=== PATIENT | female | born 1935 | race Caucasian/White ===

== ENCOUNTER → 2017-07-25 | Outpatient (CLI) | payer MEDICARE ==
[~2017-07-25] MED LIST: CYAN100053; FOLI1TAB7; IRBE1TAB15; LOSA1TAB9 PO; LVT.1T PO; OXYB5TAB9 PO; TRAM50TA2 PO; VITAMIN D3 PO
--- NOTE | 2017-07-25 15:38 | Diagnostic Imaging Report ---
INDICATION: Routine screening. COMPARISON: 05/17/2016 and 03/30/2015. TECHNIQUE: Screening digital mammography was performed bilaterally with a Computer Aided Detection (CAD) system. FINDINGS: Scattered fibroglandular densities are noted bilaterally. No dominant mass or malignant appearing microcalcifications are seen. There are benign calcifications bilaterally. The axillae are unremarkable. IMPRESSION: No mammographic features suspicious for malignancy are identified. ACR BI-RADS Category 2: Benign findings. Result letter will be mailed to the patient. Note: At least 10% of breast cancer is not imaged by mammography. Dictated by: Dictated on workstation # [id number]
== END ==
LOC: RAD 11:03
PROVIDERS: ATTEND Family Medicine
DX: Z12.31 Encounter for screening mammogram for malignant neoplasm of breast (principal)
CPT/HCPCS: 77067

== ENCOUNTER 2017-11-07 15:00 | Outpatient (RCR) | payer MEDICARE | END 2017-11-08 16:16 | disposition home or self-care (01) | PROVIDERS: ATTEND Orthopaedic Surgery | DX: M17.12 Unilateral primary osteoarthritis, left knee (principal) ==

== ENCOUNTER 2018-01-09 13:06 | Outpatient (CLI) | payer MEDICARE ==
[~2018-01-09] VITALS: Ht 152.4 cm; Wt 94.0 kg
[2018-01-09] MEDS ORDERED: CHOL5000 PO (13:25)
[2018-01-09] MEDS ORDERED: CNC1KV IM (13:25)
[2018-01-09] MEDS ORDERED: CYAN-23 PO (13:25)
[2018-01-09] MEDS ORDERED: OXYB5TAB9 PO (13:25)
[2018-01-09] MEDS ORDERED: LEVO112T55 PO (13:25)
[2018-01-09] MEDS ORDERED: LOSA1TAB26 PO (13:25)
[2018-01-09 13:33] VITALS: BP 147/60
[2018-01-09 14:32] LABS: BASOPHILS % (AUTO) 1 % (0-10); EOSINOPHILS # (AUTO) 0.2 10^3/uL (0.0-0.3); EOSINOPHILS % (AUTO) 3 % (0-10); HEMATOCRIT 34 % (35-52); HEMOGLOBIN 11.2 G/DL (11.5-16.0); LYMPHOCYTES # (AUTO) 2.3 X 10^3 (1.0-4.0); LYMPHOCYTES % (AUTO) 40 % (12-44); MEAN CORPUSCULAR HEMOGLOBIN 32 PG (25-34); MEAN CORPUSCULAR HGB CONC 33 G/DL (32-36); MEAN CORPUSCULAR VOLUME 96 FL (80-99); MEAN PLATELET VOLUME 9.2 FL (7.4-10.4); MONOCYTES # (AUTO) 0.7 X 10^3 (0.0-1.0); MONOCYTES % (AUTO) 12 % (0-12); NEUTROPHILS # (AUTO) 2.6 X 10^3 (1.8-7.8); NEUTROPHILS % (AUTO) 45 % (42-75); PLATELET COUNT 344 10^3/uL (130-400); RED BLOOD COUNT 3.55 10^6/uL (4.35-5.85); WHITE BLOOD COUNT 5.8 10^3/uL (4.3-11.0)
[2018-01-09 14:50] LABS: ERYTHROCYTE SEDIMENTATION RATE 60 MM/HR (0-30)
[2018-01-09 14:52] LABS: PROTHROMBIN TIME PATIENT 12.6 SEC (12.2-14.7)
[2018-01-09 14:53] LABS: BILIRUBIN,URINE NEGATIVE (NEGATIVE); CLARITY,URINE CLEAR; COLOR,URINE YELLOW; GLUCOSE, URINE (UA) NEGATIVE (NEGATIVE); KETONES,URINE NEGATIVE (NEGATIVE); LEUKOCYTE ESTERASE ,URINE 1+ (NEGATIVE); NITRITE,URINE NEGATIVE (NEGATIVE); PH,URINE 5 (5-9); PROTEIN,URINE NEGATIVE (NEGATIVE); UROBILINOGEN,URINE NORMAL (NORMAL)
[2018-01-09 15:03] LABS: ALBUMIN 4.3 GM/DL (3.2-4.5); BILIRUBIN,TOTAL 0.3 MG/DL (0.1-1.0); CALCIUM 10.1 MG/DL (8.5-10.1); CREATININE SERUM 1.36 MG/DL (0.60-1.30); POTASSIUM 3.6 MMOL/L (3.6-5.0); TOTAL PROTEIN 7.3 GM/DL (6.4-8.2)
--- NOTE | 2018-01-09 15:05 | Diagnostic Imaging Report ---
INDICATION: Preop left knee arthroplasty. PA and lateral chest. FINDINGS: Heart size and pulmonary vascularity are normal. Lungs are clear. There are no effusions or pneumothoraces. IMPRESSION: Negative chest. Dictated by: Dictated on workstation # [id number]
[2018-01-09 15:08] LABS: BACTERIA,URINE TRACE /HPF; SQUAMOUS EPITHELIAL CELL,UR 0-2 /HPF
[2018-01-17] MEDS ORDERED: OXYC-197 PO (07:31)
[2018-01-26] MEDS ORDERED: ACET325T49 PO (10:15)
[2018-01-26] MEDS ORDERED: ASPI-983 PO (10:15)
== END 2018-01-09 15:00 ==
LOC: PREOP 13:06
PROVIDERS: ATTEND Orthopaedic Surgery
DX: Z01.811 Encounter for preprocedural respiratory examination (principal); Z01.812 Encounter for preprocedural laboratory examination; M17.12 Unilateral primary osteoarthritis, left knee; R53.83 Other fatigue
CPT/HCPCS: 36415; 71046; 80053; 81000; 85025; 85610; 85652; 86850; 86900; 86901; 87081; 93005

== ENCOUNTER 2018-01-17 06:00 | Inpatient (IN) | payer MEDICARE ==
--- NOTE | 2018-01-01 09:20 | HISTORY AND PHYSICAL ---
DATE OF SERVICE: ADMISSION HISTORY AND PHYSICAL DATE OF ADMISSION: 01/17/2018. This will be for inpatient admission for regular admission on 01/17/2018 for left total knee arthroplasty. HISTORY OF PRESENT ILLNESS: The patient is an 82-year-old active female with complaints of left knee pain. She reports marked functional impairment because of the knee. She reports that she is unable to participate in activities of daily living because of the knee. She has undergone treatment with injections, anti-inflammatories and activity modifications without relief and due to functional impairment and failure to improve with conservative measures, the patient has elected to proceed with surgical intervention. REVIEW OF SYSTEMS: No chest pain, no shortness of breath. No dysuria. Radiographs reveal severe medial and patellofemoral joint space narrowing. PAST MEDICAL HISTORY: Significant for sleep apnea, hypothyroidism, B12 deficiency, hypertension and history of pneumonia. PAST SURGICAL HISTORY: Appendectomy, tonsillectomy, hysterectomy, bilateral knee arthroscopy, cholecystectomy, foot and bilateral cataracts. SOCIAL HISTORY: The patient denies alcohol and tobacco use. FAMILY HISTORY: Significant for hypothyroidism, hypertension and asthma. PRIMARY CARE PROVIDER: Dr. Mccoy. MEDICATIONS: Cyanocobalamin, levothyroxine, losartan, oxybutynin, biotin and vitamin D. ALLERGIES: HYDROCODONE and DEMEROL. PHYSICAL EXAMINATION: GENERAL: The patient is well developed and well nourished, no acute distress. HEENT: Normocephalic and atraumatic. Pupils are equal, round and reactive to light. Oropharynx is clear. NECK: Supple and no lymphadenopathy. LUNGS: Clear to auscultation bilaterally. HEART: Regular rate and rhythm. ABDOMEN: Soft, nontender and nondistended. EXTREMITIES: The patient ambulates with an antalgic gait on the left. Her left knee demonstrates moderate effusion. Range of motion is 0/2/120. There is no varus valgus laxity. Her patella tracks well. Negative anterior and posterior drawer. The patient needs to use assistance to arise from a seated position. IMPRESSION: Severe left knee osteoarthritis unresponsive to conservative measures. PLAN: Left total knee arthroplasty. The risks, benefits, options, ramifications and recovery have been discussed at length with the patient. She understands and wishes to proceed. She will require inpatient admission due to pain management issues, gait abnormalities and weakness. Job ID: [id number] DocumentID: [id number] Dictated Date: 01/01/2018 08:59:37 Paper Coating Supervisor Date: 01/01/2018 09:20:03 Dictated By: MAHENDRA LEONARDO MD
[~2018-01-17] VITALS: Ht 152.4 cm; Wt 94.0 kg
[~2018-01-17 06:00] MED LIST changes: +CHOL5000 PO; +CNC1KV IM; +CYAN-23 PO; +LEVO112T55 PO; +LOSA1TAB26 PO
[2018-01-17 06:15] VITALS: BP 147/58
[2018-01-17] MEDS ORDERED: CEFUROXIME INJECTION 1,500 MG in NS (IVPB) 50 ML IV ONE (06:15)
--- OUTSIDE RECORDS SUMMARY | 2018-01-17 06:15 | XMS REPORT | CCD ---
Author Author [facility] Organization [facility] Address [address] [place] [address] Phone Care Team Providers Care Truck Driver Flatbed Name Role Phone PP Unavailable CCM Unavailable Summary Purpose Interface Exchange Insurance Providers Payer name Policy type / Coverage type Covered libertarian ID Effective Begin Date Effective End Date WPS Medicare Part B Medicare Part B [id number] Unknown Unknown [facility] Medicare Part B [id number] Unknown Unknown Family history Sister Diagnosis Age At Onset bladder cancer Unknown Asthma Unknown Diabetes mellitus Type 2 Unknown Hypertension Unknown Stroke Unknown Cancer Unknown kidney disease Unknown Runs in the family Diagnosis Age At Onset Diabetes mellitus Type 2 Unknown Father Diagnosis Age At Onset Asthma Unknown Diabetes mellitus Type 2 Unknown Sister Diagnosis Age At Onset Uterine Cancer Unknown Brother Diagnosis Age At Onset Alcoholism Unknown Heart Attack Unknown Hypertension Unknown Colon cancer Unknown Stroke Unknown Diabetes mellitus Type 2 Unknown Mother Diagnosis Age At Onset Hypertension Unknown Stroke Unknown Dementia Unknown Son Diagnosis Age At Onset lung cancer Unknown Social History Social History Element Codes Description Effective Dates Marital status Unknown 12/15/2014 Number of children Unknown 2 12/15/2014 Employment Unknown Retired 12/15/[address]: 429034478 Never smoker 12/15/[address]: 768490552 Never drinks alcohol 12/15/2014 Allergies, Adverse Reactions, Alerts Allergies, Adverse Reactions, Alerts data not found Past Medical History Illness Codes Condition Status Onset Date Resolved Date Atrophy of thyroid (acquired) ICD-9: 244.8 ICD-10: E03.4 Active 04/10/2016 Unknown Essential (primary) hypertension ICD-9: 401.1 ICD-10: I10 Active 04/10/2016 Unknown Obstructive sleep apnea (adult) (pediatric) ICD-9: 327.23 ICD-10: G47.33 Active 01/19/2017 Unknown Benign paroxysmal vertigo, bilateral ICD-9: 386.11 ICD-10: H81.13 Active 02/14/2017 Unknown Encounter for general adult medical examination with abnormal findings ICD-9: V70.0 ICD-10: Z00.01 Active 01/24/2017 Unknown Primary generalized (osteo)arthritis ICD-9: 715.09 ICD-10: M15.0 Active 01/19/2017 Unknown Cough ICD-9: 786.2 ICD-10: R05 Active 05/01/2016 Unknown Pneumonia due to other specified bacteria ICD-9: 482.89 ICD-10: J15.8 Active 05/01/2016 Unknown Dehydration ICD-9: 276.51 ICD-10: E86.0 Active 05/02/2016 Unknown Pneumonia due to other specified bacteria ICD-9: 482.83 ICD-10: J15.8 Active 05/02/2016 Unknown Encounter for screening mammogram for malignant neoplasm of breast ICD-9: V76.12 ICD-10: Z12.31 Active 04/10/2016 Unknown Encounter for removal of sutures ICD-9: V58.32 ICD-10: Z48.02 Active 02/16/2016 Unknown Other benign neoplasm of skin of trunk ICD-9: 216.5 ICD-10: D23.5 Active 02/07/2016 Unknown Gastro-esophageal reflux disease without esophagitis ICD-9: 530.81 ICD-10: K21.9 Active 01/25/2016 Unknown Hypothyroidism, unspecified ICD-9: 244.9 ICD-10: E03.9 Active 12/14/2014 Unknown Personal history of pneumonia (recurrent) ICD-9: V12.61 ICD-10: Z87.01 Active 01/25/2016 Unknown Other fatigue ICD-9: 780.79 ICD-10: R53.83 Active 01/07/2016 Unknown Other malaise ICD-9: 780.79 ICD-10: R53.81 Active 01/07/2016 Unknown Weakness ICD-9: 780.79 ICD-10: R53.1 Active 01/07/2016 Unknown Pneumonia, unspecified organism ICD-9: 486 ICD-10: J18.9 Active 12/31/2015 Unknown Acute laryngopharyngitis ICD-9: 465.0 ICD-10: J06.0 Active 12/28/2015 Unknown Other acute sinusitis ICD-9: 461.8 ICD-10: J01.80 Active 12/28/2015 Unknown Other allergic rhinitis ICD-9: 477.8 ICD-10: J30.89 Active 12/28/2015 Unknown Other secondary hypertension ICD-9: 401.9 ICD-10: I15.8 Active 12/14/2014 Unknown Unspecified inflammatory spondylopathy, 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.9 ICD-10: M46.93 Active 03/15/2015 Unknown Vitamin B12 deficiency anemia, unspecified ICD-9: 266.2 ICD-10: D51.9 Active 12/14/2014 Unknown Depression Unknown Active 12/15/2014 Unknown Hypertension Unknown Active 12/15/2014 Unknown Hypothryroidism Unknown Active 12/15/2014 Unknown DEPRESSIVE DISORDER NEC ICD-9: 311 Active 12/14/2014 Unknown ESSENTIAL HYPERTENSION ICD-9: 401.9 Active 12/14/2014 Unknown HYPOTHYROIDISM ICD-9: 244.9 Active 12/14/2014 Unknown Vitamin B12 deficiency ICD-9: 266.2 Active 12/14/2014 Unknown Problems Condition Codes Effective Dates Condition Status Atrophy of thyroid (acquired) ICD-9: 244.8 ICD-10: E03.4 04/10/2016 Active Essential (primary) hypertension ICD-9: 401.1 ICD-10: I10 04/10/2016 Active Obstructive sleep apnea (adult) (pediatric) ICD-9: 327.23 ICD-10: G47.33 01/19/2017 Active Benign paroxysmal vertigo, bilateral ICD-9: 386.11 ICD-10: H81.13 02/14/2017 Active Encounter for general adult medical examination with abnormal findings ICD-9: V70.0 ICD-10: Z00.01 01/24/2017 Active Primary generalized (osteo)arthritis ICD-9: 715.09 ICD-10: M15.0 01/19/2017 Active Cough ICD-9: 786.2 ICD-10: R05 05/01/2016 Active Pneumonia due to other specified bacteria ICD-9: 482.89 ICD-10: J15.8 05/01/2016 Active Dehydration ICD-9: 276.51 ICD-10: E86.0 05/02/2016 Active Pneumonia due to other specified bacteria ICD-9: 482.83 ICD-10: J15.8 05/02/2016 Active Encounter for screening mammogram for malignant neoplasm of breast ICD-9: V76.12 ICD-10: Z12.31 04/10/2016 Active Encounter for removal of sutures ICD-9: V58.32 ICD-10: Z48.02 02/16/2016 Active Other benign neoplasm of skin of trunk ICD-9: 216.5 ICD-10: D23.5 02/07/2016 Active Gastro-esophageal reflux disease without esophagitis ICD-9: 530.81 ICD-10: K21.9 01/25/2016 Active Hypothyroidism, unspecified ICD-9: 244.9 ICD-10: E03.9 12/14/2014 Active Personal history of pneumonia (recurrent) ICD-9: V12.61 ICD-10: Z87.01 01/25/2016 Active Other fatigue ICD-9: 780.79 ICD-10: R53.83 01/07/2016 Active Other malaise ICD-9: 780.79 ICD-10: R53.81 01/07/2016 Active Weakness ICD-9: 780.79 ICD-10: R53.1 01/07/2016 Active Pneumonia, unspecified organism ICD-9: 486 ICD-10: J18.9 12/31/2015 Active Acute laryngopharyngitis ICD-9: 465.0 ICD-10: J06.0 12/28/2015 Active Other acute sinusitis ICD-9: 461.8 ICD-10: J01.80 12/28/2015 Active Other allergic rhinitis ICD-9: 477.8 ICD-10: J30.89 12/28/2015 Active Other secondary hypertension ICD-9: 401.9 ICD-10: I15.8 12/14/2014 Active Unspecified inflammatory spondylopathy, 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.9 ICD-10: M46.93 03/15/2015 Active Vitamin B12 deficiency anemia, unspecified ICD-9: 266.2 ICD-10: D51.9 12/14/2014 Active Depression Unknown 12/15/2014 Active Hypertension Unknown 12/15/2014 Active Hypothryroidism Unknown 12/15/2014 Active DEPRESSIVE DISORDER NEC ICD-9: 311 12/14/2014 Active ESSENTIAL HYPERTENSION ICD-9: 401.9 12/14/2014 Active HYPOTHYROIDISM ICD-9: 244.9 12/14/2014 Active Vitamin B12 deficiency ICD-9: 266.2 12/14/2014 Active Medications Medication Codes Instructions Start Date Stop Date Status Fill Instructions Hyzaar 100 mg-12.5 mg tablet RxNorm: 847909 TAKE ONE TABLET BY MOUTH DAILY 07/24/2017 2018 Active oxybutynin chloride 5 mg tablet RxNorm: 471641 TAKE ONE TABLET BY MOUTH TWICE A DAY FOR URINARY INCONTINENCE 06/13/2017 Active oxybutynin chloride 5 mg tablet RxNorm: 222353 TAKE ONE TABLET BY MOUTH TWICE A DAY FOR URINARY INCONTINENCE 06/13/2017 Active levothyroxine 112 mcg tablet RxNorm: 780725 TAKE ONE TABLET BY MOUTH DAILY 05/08/2017 08/05/2017 Active cyanocobalamin (vit B-12) 1,000 mcg/mL injection solution RxNorm: 110758 INJECT 1 ML INTRAMUSCULARLY EVERY 2 WEEKS 03/24/2017 06/16/2018 Active meclizine 25 mg tablet RxNorm: 534673 1 Tablet(s) PO TID as needed Dizziness 02/14/2017 02/23/2017 Inactive levothyroxine 112 mcg tablet RxNorm: 792497 TAKE ONE TABLET BY MOUTH DAILY 02/14/2017 05/07/2017 Inactive levothyroxine 112 mcg tablet RxNorm: 153214 TAKE ONE TABLET BY MOUTH DAILY 11/14/2016 02/11/2017 Inactive Hyzaar 100 mg-12.5 mg tablet RxNorm: 116137 TAKE ONE TABLET BY MOUTH DAILY 10/24/2016 07/20/2017 Inactive levothyroxine 112 mcg tablet RxNorm: 673128 TAKE ONE TABLET BY MOUTH DAILY 08/17/2016 11/13/2016 Inactive ceftriaxone 500 mg solution for injection RxNorm: 0398147 1 Milliliter(s) Inj 08/08/2016 08/08/2016 Inactive azithromycin 250 mg tablet RxNorm: 021159 2 Tablet(s) PO on day #1, then one pill daily x 4 days 08/08/2016 01/18/2017 Inactive Kenalog 40 mg/mL suspension for injection RxNorm: 4466157 1 Milliliter(s) Inj 08/08/2016 08/08/2016 Inactive azithromycin 500 mg tablet RxNorm: 816265 1 Tablet(s) PO UD 08/07/2016 Inactive ceftriaxone 500 mg solution for injection RxNorm: 9119540 Inj 05/02/2016 05/02/2016 Inactive cefdinir 300 mg capsule RxNorm: 106798 1 Capsule(s) PO BID 05/11/2016 Inactive oxybutynin chloride 5 mg tablet RxNorm: 076843 1 Tablet(s) PO BID ( urinary incontinence) 04/18/2016 10/14/2016 Inactive azithromycin 500 mg tablet RxNorm: 172435 1 Tablet(s) PO UD two pills on day #1, then one pill daily x 4 days 02/08/2016 Inactive cyanocobalamin (vit B-12) 1,000 mcg/mL injection solution RxNorm: 026515 INJECT 1 ML INTRAMUSCULARLY EVERY 2 WEEKS 02/03/2016 03/23/2017 Inactive Pepcid 40 mg tablet RxNorm: 200051 1 Tablet(s) PO QPM 201501/18/2017 Inactive prednisone 10 mg tablet RxNorm: 747491 Tablet(s) PO UD 201501/25/2016 Inactive 6,5,4,3,2,1 ceftriaxone 500 mg solution for injection RxNorm: 5369047 Inj 01/01/2016 01/01/2016 Inactive Augmentin 500 mg-125 mg tablet RxNorm: 657793 1 Tablet(s) PO TID 12/29/2015 01/04/2016 Inactive levothyroxine 112 mcg tablet RxNorm: 295048 TAKE ONE TABLET BY MOUTH DAILY 12/21/2015 11/13/2016 Inactive levothyroxine 112 mcg tablet RxNorm: 048315 TAKE ONE TABLET BY MOUTH DAILY 12/21/2015 12/20/2015 Inactive Hyzaar 100 mg-12.5 mg tablet RxNorm: 646213 Tablet(s) TAKE ONE TABLET BY MOUTH DAILY 10/26/2015 10/19/2016 Inactive oxybutynin chloride 5 mg tablet RxNorm: 710955 1 Tablet(s) PO BID ( urinary incontinence) 09/25/2015 01/22/2016 Inactive DC myrbetriq Myrbetriq 25 mg tablet,extended release RxNorm: 6520631 1 Tablet(s) PO QHS 09/09/2015 10/08/2015 Inactive Myrbetriq 25 mg tablet,extended release RxNorm: 9421911 1 Tablet(s) PO QHS 09/09/2015 09/08/2015 Inactive levothyroxine 112 mcg tablet RxNorm: 171778 Tablet(s) TAKE ONE TABLET BY MOUTH DAILY 07/28/2015 12/20/2015 Inactive Just put on file- fill when ready levothyroxine 112 mcg tablet RxNorm: 259750 TAKE ONE TABLET BY MOUTH DAILY 07/23/2015 07/27/2015 Inactive oxybutynin chloride 5 mg tablet RxNorm: 250691 1 Tablet(s) PO TID ( urinary incontinence) 07/20/2015 09/17/2015 Inactive cefdinir 300 mg capsule RxNorm: 731321 1 Capsule(s) PO BID 09/201507/22/2015 Inactive ceftriaxone 500 mg solution for injection RxNorm: 4972028 Inj 07/16/2015 07/16/2015 Inactive Kenalog 40 mg/mL suspension for injection RxNorm: 9924732 Milliliter(s) Inj 07/16/2015 07/16/2015 Inactive Zithromax Z-Milad 250 mg tablet RxNorm: 796222 1 Tablet(s) PO UD 07/16/2015 07/20/2015 Inactive zpack Hyzaar 100 mg-12.5 mg tablet RxNorm: 605585 TAKE ONE TABLET BY MOUTH DAILY 01/16/2015 10/12/2015 Inactive Vitamin D2 50,000 unit capsule RxNorm: 889386 1 Capsule(s) PO QW 12/17/2014 03/16/2015 Inactive Vitamin D2 50,000 unit capsule RxNorm: 905249 1 Capsule(s) PO QW 12/17/2014 12/16/2014 Inactive levothyroxine 112 mcg tablet RxNorm: 226899 1 Tablet(s) PO daily 12/15/2014 07/12/2015 Inactive cyanocobalamin (vit B-12) 1,000 mcg/mL injection solution RxNorm: 890650 1 Milliliter(s) Inj [id number] 12/03/201406/30 Inactive cyanocobalamin (vit B-12) 1,000 mcg/mL injection solution RxNorm: 364626 1 Milliliter(s) Inj [id number] 12/03/201412/02 Inactive Hyzaar 100 mg-12.5 mg tablet RxNorm: 394061 1 Tablet(s) PO daily 10/20/2014 10/19/2014 Inactive Hyzaar 100 mg-12.5 mg tablet RxNorm: 805625 1 Tablet(s) PO daily 10/20/2014 01/15/2015 Inactive [SAVINGS FOR NON-COVERED DRUGS -- BIN:[id number], PCN: [id number], Group: [id number], ID# [id number], Questions: . THIS IS NOT INSURANCE.] Lasix 40 mg tablet RxNorm: 398536 1 Tablet(s) PO as doctor directed prn swelling No Start Date Active Probiotic oral RxNorm : 6205 oral No Start Date Active biotin oral RxNorm: 1588 oral No Start Date Active oxybutynin chloride 5 mg tablet RxNorm: 275641 1 Tablet(s) PO daily No Start Date Active Vitamin D3 5,000 unit tablet RxNorm: 960421 1 Tablet(s) PO daily No Start Date Active Probiotic and Acidophilus oral RxNorm: oral No Start Date 01/17/2017 Inactive oxybutynin chloride 5 mg tablet RxNorm: 175204 1 Tablet(s) PO TID as needed ( urinary incontinence) No Start Date 2015 Inactive levothyroxine 100 mcg tablet RxNorm: 146923 1 Tablet(s) PO daily No Start Date 12/14/2014 Inactive Vitamin B-12 1,000 mcg tablet RxNorm: 437126 1 Tablet(s) PO daily No Start Date 01/10/2017 Inactive Vitamin B-12 1,000 mcg/mL injection solution RxNorm: 680871 1 Milliliter(s) Inj Q 2 weeks No Start Date 01/17/2017 Inactive biotin 1 mg tablet RxNorm: 536952 1 Tablet(s) PO daily No Start Date 01/17/2017 Inactive Medication Administered Medication Codes Instructions Start Date Status Kenalog 40 mg/mL suspension for injection RxNorm: 4980822 1Milliliter 08/08/2016 No longer Active ceftriaxone 500 mg solution for injection RxNorm: 0975498 1Milliliter 08/08/2016 No longer Active ceftriaxone 500 mg solution for injection RxNorm: 1998769 05/02/2016 No longer Active ceftriaxone 500 mg solution for injection RxNorm: 7151025 01/01/2016 No longer Active Kenalog 40 mg/mL suspension for injection RxNorm: 4924228 Milliliter 07/16/2015 No longer Active ceftriaxone 500 mg solution for injection RxNorm: 5547442 07/16/2015 No longer Active Immunizations Vaccine Codes Date Status Influenza CVX: 141 05/09/2017 completed Zoster CVX: 121 04/12/2014 completed Influenza CVX: 141 03/12/2014 completed Pneumococcal CVX: 133 06/12/2002 completed Assessments Condition Codes Effective Dates Obstructive sleep apnea (adult) (pediatric) ICD-10: G47.33 ICD-9: 327.23 07/10/2017 Atrophy of thyroid (acquired) ICD-10: E03.4 ICD-9: 244.8 07/10/2017 Essential (primary) hypertension ICD-10: I10 ICD-9: 401.1 07/10/2017 Benign paroxysmal vertigo, bilateral ICD-10: H81.13 ICD-9: 386.11 02/14/2017 Encounter for general adult medical examination with abnormal findings ICD-10: Z00.01 ICD-9: V70.0 01/24/2017 Primary generalized (osteo)arthritis ICD-10: M15.0 ICD-9: 715.09 01/19/2017 Cough ICD-10: R05 ICD-9: 786.2 08/08/2016 Pneumonia due to other specified bacteria ICD-10: J15.8 ICD-9: 482.89 08/08/2016 Pneumonia due to other specified bacteria ICD-10: J15.8 ICD-9: 482.83 05/03/2016 Dehydration ICD-10: E86.0 ICD-9: 276.51 05/03/2016 Encounter for screening mammogram for malignant neoplasm of breast ICD-10: Z12.31 ICD-9: V76.12 04/11/2016 Encounter for removal of sutures ICD-10: Z48.02 ICD-9: V58.32 02/17/2016 Other benign neoplasm of skin of trunk ICD-10: D23.5 ICD-9: 216.5 02/08/2016 Hypothyroidism, unspecified ICD-10: E03.9 ICD-9: 244.9 01/26/2016 Personal history of pneumonia (recurrent) ICD-10: Z87.01 ICD-9: V12.61 01/26/2016 Gastro-esophageal reflux disease without esophagitis ICD-10 : K21.9 ICD-9: 530.81 01/26/2016 Weakness ICD-10: R53.1 ICD-9: 780.79 01/08/2016 Other fatigue ICD-10: R53.83 ICD-9: 780.79 01/08/2016 Other malaise ICD-10: R53.81 ICD-9: 780.79 01/08/2016 Pneumonia, unspecified organism ICD-10: J18.9 ICD-9: 486 01/01/2016 Other acute sinusitis ICD-10: J01.80 ICD-9: 461.8 12/29/2015 Other allergic rhinitis ICD-10: J30.89 ICD-9: 477.8 12/29/2015 Acute laryngopharyngitis ICD-10: J06.0 ICD-9: 465.0 12/29/2015 Vitamin B12 deficiency anemia, unspecified ICD-10: D51.9 ICD-9: 266.2 03/16/2015 Unspecified inflammatory spondylopathy, cervicothoracic region ICD-10: M46.93 ICD-9: 720.9 03/16/2015 Other secondary hypertension ICD-10: I15.8 ICD-9: 401.9 03/16/2015 HYPOTHYROIDISM ICD-9: 244.9 12/15/2014 Vitamin B12 deficiency ICD-9: 266.2 12/15 ESSENTIAL HYPERTENSION ICD-9: 401.9 12/15 DEPRESSIVE DISORDER NEC ICD-9: 311 2014 Reason For Visit Reason For Visit Effective Dates Notes hypertension 07/10/2017 dizziness 02/14/2017 Annual Medicare Wellness Exam 01/24/2017 edema 01/19/2017 hypothyroid 08/08/2016 headache 05/03/2016 fever 05/02/2016 hypothyroid 04/11/2016 wound follow up 02/17/2016 mole check 02/08/2016 hypothyroid 01/26/2016 malaise 01/08/2016 sinus congestion 01/01/2016 sinus congestion 12/29/2015 hypothyroid 07/27/2015 cough 07/16/2015 hypothyroid 03/16/2015 weight gain/obesity 12/15/2014 Results Observation Observation Code Item Item Code Result Date Cbc With Differential Ord2 WBC 5.51 K/ul 07/11/2017 Cbc With Differential Ord2 RBC 3.69 M/ul 07/11/2017 Cbc With Differential Ord2 HGB 11.5 g/dl 07/11/2017 Cbc With Differential Ord2 Neut% 48.5 % 07/11/2017 Cbc With Differential Ord2 HCT 36.1 % 07/11/2017 Cbc With Differential Ord2 MCV 97.8 fl 07/11/2017 Cbc With Differential Ord2 Lymph% 36.5 % 07/11/2017 Cbc With Differential Ord2 MCH 31.2 pg 07/11/2017 Cbc With Differential Ord2 [place]% 11.4 % 07/11/2017 Cbc With Differential Ord2 MCHC 31.9 pg 07/11/2017 Cbc With Differential Ord2 Eos% 2.9 % 07/11/2017 Cbc With Differential Ord2 PLT 322 K/ul 07/11/2017 Cbc With Differential Ord2 Baso% 0.7 % 07/11/2017 Cbc With Differential Ord2 RDW 14.0 % 07/11/2017 Cbc With Differential Ord2 Neut ABS# 2.67 K/ul 07/11/2017 Cbc With Differential Ord2 Lymph ABS# 2.01 K/ul 07/11/2017 Cbc With Differential Ord2 [place] ABS# 0.6 K/ul 07/11/2017 Cbc With Differential Ord2 Eos ABS# 0.2 K/ul 07/11/2017 Cbc With Differential Ord2 Baso ABS# 0.0 K/ul 07/11/2017 Lipid Ord30 CHOL 178 mg/dL 07/11/2017 Lipid Ord30 HDL 61.0 mg/dl 07/11/2017 Lipid Ord30 TRIG 83 mg/dL 07/11/2017 Lipid Ord30 LDL 100 mg/dL 07/11/2017 Lipid Ord30 C/HDL 2.9 Ratio 07/11/2017 Tsh Ord6 TSH (3rd IS) 1.81 uIU/mL 07/11/2017 Comp Metabolic Qim517 NA 141 mEq/L 07/11/2017 Comp Metabolic Ehy294 K 4.0 mEq/L 07/11/2017 Comp Metabolic Lgl999 CL 104 mEq/L 07/11/2017 Comp Metabolic Bin473 CO2 28.0 mEq/L 07/11/2017 Comp Metabolic Qtd740 ANION GAP 13 07/11/2017 Comp Metabolic Tzt417 GLUCOSE 105 mg/dL 07/11/2017 Comp Metabolic Dri088 Creat 1.0 mg/dL 07/11/2017 Comp Metabolic Htq215 eGFR 54 ml/min/1.73m2 07/11/2017 Comp Metabolic Jry547 BUN 22 mg/dL 07/11/2017 Comp Metabolic Clx305 B/C Ratio 21.2 Ratio 07/11/2017 Comp Metabolic Qda462 CALCIUM 9.1 mg/dL 07/11/2017 Comp Metabolic Tne856 ALK PHOS 76 U/L 07/11/2017 Comp Metabolic Dsn497 AST(SGOT) 19 U/L 07/11/2017 Comp Metabolic Flv915 ALT(SGPT) 20 U/L 07/11/2017 Comp Metabolic Jhy941 BILI T 0.3 mg/dL 07/11/2017 Comp Metabolic Xtc442 ALBUMIN 3.9 g/dL 07/11/2017 Comp Metabolic Gbe317 TPRO 6.3 g/dL 07/11/2017 Comp Metabolic Zls531 GLOB 2.4 g/dL 07/11/2017 Comp Metabolic Eba256 A/G Ratio 1.6 Ratio 07/11/2017 Comp Metabolic Ksp204 Osmo 285 mOsmo 07/11/2017 Free T4 Lzl960 FREE T4 1.12 ng/dL 07/11/2017 Tsh Ord6 hTSH II 0.94 uIU/mL 01/19/2017 Cbc With Differential Ord2 WBC 6.16 K/ul 01/19/2017 Cbc With Differential Ord2 RBC 3.36 M/ul 01/19/2017 Cbc With Differential Ord2 HGB 10.7 g/dl 01/19/2017 Cbc With Differential Ord2 Neut% 54.2 % 01/19/2017 Cbc With Differential Ord2 HCT 33.4 % 01/19/2017 Cbc With Differential Ord2 Lymph% 32.1 % 01/19/2017 Cbc With Differential Ord2 MCV 99.4 fl 01/19/2017 Cbc With Differential Ord2 [place]% 10.9 % 01/19/2017 Cbc With Differential Ord2 MCH 31.8 pg 01/19/2017 Cbc With Differential Ord2 Eos% 2.3 % 01/19/2017 Cbc With Differential Ord2 MCHC 32.0 pg 01/19/2017 Cbc With Differential Ord2 Baso% 0.5 % 01/19/2017 Cbc With Differential Ord2 PLT 292 K/ul 01/19/2017 Cbc With Differential Ord2 Neut ABS# 3.34 K/ul 01/19/2017 Cbc With Differential Ord2 RDW 13.3 % 01/19/2017 Cbc With Differential Ord2 Lymph ABS# 1.98 K/ul 01/19/2017 Cbc With Differential Ord2 [place] ABS# 0.7 K/ul 01/19/2017 Cbc With Differential Ord2 Eos ABS# 0.1 K/ul 01/19/2017 Cbc With Differential Ord2 Baso ABS# 0.0 K/ul 01/19/2017 Comp Metabolic Gon908 NA 142 mEq/L 01/19/2017 Comp Metabolic Xht668 K 4.0 mEq/L 01/19/2017 Comp Metabolic Prt685 CL 105 mEq/L 01/19/2017 Comp Metabolic Tbg379 CO2 27.0 mEq/L 01/19/2017 Comp Metabolic Ffy386 ANION GAP 14 01/19/2017 Comp Metabolic Enp149 GLUCOSE 98 mg/dL 01/19/2017 Comp Metabolic Had452 Creat 1.1 mg/dL 01/19/2017 Comp Metabolic Jhm174 eGFR 50 ml/min/1.73m2 01/19/2017 Comp Metabolic Buw261 BUN 19 mg/dL 01/19/2017 Comp Metabolic Gxo015 B/C Ratio 17.0 Ratio 01/19/2017 Comp Metabolic Pkg584 CALCIUM 9.2 mg/dL 01/19/2017 Comp Metabolic Krj951 ALK PHOS 59 U/L 01/19/2017 Comp Metabolic Mmu700 AST(SGOT) 17 U/L 01/19/2017 Comp Metabolic Gpc698 ALT(SGPT) 15 U/L 01/19/2017 Comp Metabolic Jzn849 BILI T 0.3 mg/dL 01/19/2017 Comp Metabolic Ztd871 ALBUMIN 3.6 g/dL 01/19/2017 Comp Metabolic Vpn076 TPRO 6.0 g/dL 01/19/2017 Comp Metabolic Unf031 GLOB 2.4 g/dL 01/19/2017 Comp Metabolic Evj159 A/G Ratio 1.5 Ratio 01/19/2017 Comp Metabolic Mzn931 Osmo 285 mOsmo 01/19/2017 Comp Metabolic Qyj494 NA 140 mEq/L 01/22/2016 Comp Metabolic Eso141 K 4.1 mEq/L 01/22/2016 Comp Metabolic Met948 CL 105 mEq/L 01/22/2016 Comp Metabolic Uwn328 CO2 30.0 mEq/L 01/22/2016 Comp Metabolic Bhp896 ANION GAP 9 01/22/2016 Comp Metabolic Smn982 GLUCOSE 92 mg/dL 01/22/2016 Comp Metabolic Adc636 Creat 1.0 mg/dL 01/22/2016 Comp Metabolic Ixe835 eGFR 55 ml/min/1.73m2 01/22/2016 Comp Metabolic Gvt930 BUN 20 mg/dL 01/22/2016 Comp Metabolic Plq110 B/C Ratio 19.6 Ratio 01/22/2016 Comp Metabolic Jlr421 CALCIUM 9.5 mg/dL 01/22/2016 Comp Metabolic Yjd620 ALK PHOS 66 U/L 01/22/2016 Comp Metabolic Rct778 AST(SGOT) 14 U/L 01/22/2016 Comp Metabolic Lrg344 ALT(SGPT) 15 U/L 01/22/2016 Comp Metabolic Zog415 BILI T 0.4 mg/dL 01/22/2016 Comp Metabolic Tah313 ALBUMIN 3.8 g/dL 01/22/2016 Comp Metabolic Qkc239 TPRO 6.2 g/dL 01/22/2016 Comp Metabolic Vmo974 GLOB 2.5 g/dL 01/22/2016 Comp Metabolic Scr809 A/G Ratio 1.5 Ratio 01/22/2016 Comp Metabolic Eit464 Osmo 282 mOsmo 01/22/2016 Lipid Ord30 CHOL 177 mg/dL 01/22/2016 Lipid Ord30 HDL 56.0 mg/dl 01/22/2016 Lipid Ord30 TRIG 85 mg/dL 01/22/2016 Lipid Ord30 LDL 104 mg/dL 01/22/2016 Lipid Ord30 C/HDL 3.2 Ratio 01/22/2016 Free T4 Zod125 FREE T4 1.10 ng/dL 01/22/2016 Cbc With Differential Ord2 WBC 6.28 K/ul 01/22/2016 Cbc With Differential Ord2 RBC 3.62 M/ul 01/22/2016 Cbc With Differential Ord2 HGB 11.4 g/dl 01/22/2016 Cbc With Differential Ord2 HCT 34.9 % 01/22/2016 Cbc With Differential Ord2 Neut% 45.0 % 01/22/2016 Cbc With Differential Ord2 MCV 96.4 fl 01/22/2016 Cbc With Differential Ord2 Lymph% 38.9 % 01/22/2016 Cbc With Differential Ord2 MCH 31.5 pg 01/22/2016 Cbc With Differential Ord2 [place]% 11.9 % 01/22/2016 Cbc With Differential Ord2 MCHC 32.7 pg 01/22/2016 Cbc With Differential Ord2 Eos% 3.7 % 01/22/2016 Cbc With Differential Ord2 Baso% 0.5 % 01/22/2016 Cbc With Differential Ord2 PLT 257 K/ul 01/22/2016 Cbc With Differential Ord2 RDW 13.7 % 01/22/2016 Cbc With Differential Ord2 Neut ABS# 2.83 K/ul 01/22/2016 Cbc With Differential Ord2 Lymph ABS# 2.44 K/ul 01/22/2016 Cbc With Differential Ord2 [place] ABS# 0.8 K/ul 01/22/2016 Cbc With Differential Ord2 Eos ABS# 0.2 K/ul 01/22/2016 Cbc With Differential Ord2 Baso ABS# 0.0 K/ul 01/22/2016 Tsh Ord6 hTSH II 1.53 uIU/mL 01/22/2016 Comp Metabolic Xed633 NA 141 mEq/L 01/08/2016 Comp Metabolic Wbk618 K 3.9 mEq/L 01/08/2016 Comp Metabolic Lcs378 CL 104 mEq/L 01/08/2016 Comp Metabolic Izr195 CO2 31.0 mEq/L 01/08/2016 Comp Metabolic Dfb202 ANION GAP 10 01/08/2016 Comp Metabolic Vct492 GLUCOSE 102 mg/dL 01/08/2016 Comp Metabolic Mjv685 Creat 1.0 mg/dL 01/08/2016 Comp Metabolic Rtd694 eGFR 55 ml/min/1.73m2 01/08/2016 Comp Metabolic Dzh299 BUN 26 mg/dL 01/08/2016 Comp Metabolic Hdf401 B/C Ratio 25.2 Ratio 01/08/2016 Comp Metabolic Ycq894 CALCIUM 9.3 mg/dL 01/08/2016 Comp Metabolic Kla719 ALK PHOS 62 U/L 01/08/2016 Comp Metabolic Pmb355 AST(SGOT) 16 U/L 01/08/2016 Comp Metabolic Smj923 ALT(SGPT) 26 U/L 01/08/2016 Comp Metabolic Rrc380 BILI T 0.3 mg/dL 01/08/2016 Comp Metabolic Yrg688 ALBUMIN 3.6 g/dL 01/08/2016 Comp Metabolic Ixh586 TPRO 6.1 g/dL 01/08/2016 Comp Metabolic Qhh048 GLOB 2.5 g/dL 01/08/2016 Comp Metabolic Tek018 A/G Ratio 1.5 Ratio 01/08/2016 Comp Metabolic Bgs276 Osmo 286 mOsmo 01/08/2016 Cbc With Differential Ord2 WBC 11.28 K/ul 01/08/2016 Cbc With Differential Ord2 RBC 3.76 M/ul 01/08/2016 Cbc With Differential Ord2 HGB 11.8 g/dl 01/08/2016 Cbc With Differential Ord2 HCT 36.2 % 01/08/2016 Cbc With Differential Ord2 Neut% 61.4 % 01/08/2016 Cbc With Differential Ord2 MCV 96.3 fl 01/08/2016 Cbc With Differential Ord2 Lymph% 28.9 % 01/08/2016 Cbc With Differential Ord2 [place]% 7.7 % 01/08/2016 Cbc With Differential Ord2 MCH 31.4 pg 01/08/2016 Cbc With Differential Ord2 MCHC 32.6 pg 01/08/2016 Cbc With Differential Ord2 Eos% 1.7 % 01/08/2016 Cbc With Differential Ord2 Baso% 0.3 % 01/08/2016 Cbc With Differential Ord2 PLT 422 K/ul 01/08/2016 Cbc With Differential Ord2 Neut ABS# 6.93 K/ul 01/08/2016 Cbc With Differential Ord2 RDW 13.4 % 01/08/2016 Cbc With Differential Ord2 Lymph ABS# 3.26 K/ul 01/08/2016 Cbc With Differential Ord2 [place] ABS# 0.9 K/ul 01/08/2016 Cbc With Differential Ord2 Eos ABS# 0.2 K/ul 01/08/2016 Cbc With Differential Ord2 Baso ABS# 0.0 K/ul 01/08/2016 Tsh Ord6 hTSH II 1.43 uIU/mL 07/27/2015 Free T4 Aug514 FREE T4 1.28 ng/dL 07/27/2015 Free T4 Uvs105 FREE T4 1.22 ng/dL 03/11/2015 Comp Metabolic Afm478 NA 136 mEq/L 03/11/2015 Comp Metabolic Rya545 K 4.1 mEq/L 03/11/2015 Comp Metabolic Rnn664 CL 103 mEq/L 03/11/2015 Comp Metabolic Upu296 CO2 29.0 mEq/L 03/11/2015 Comp Metabolic Ccq939 ANION GAP 8 03/11/2015 Comp Metabolic Ndh094 GLUCOSE 96 mg/dL 03/11/2015 Comp Metabolic Wih903 Creat 1.0 mg/dL 03/11/2015 Comp Metabolic Upj129 eGFR 54 ml/min/1.73m2 03/11/2015 Comp Metabolic Nyo511 BUN 19 mg/dL 03/11/2015 Comp Metabolic Oto125 B/C Ratio 18.3 Ratio 03/11/2015 Comp Metabolic Mcn841 CALCIUM 9.2 mg/dL 03/11/2015 Comp Metabolic Bds188 ALK PHOS 69 U/L 03/11/2015 Comp Metabolic Bmi680 AST(SGOT) 19 U/L 03/11/2015 Comp Metabolic Ixn378 ALT(SGPT) 14 U/L 03/11/2015 Comp Metabolic Wap277 BILI T 0.4 mg/dL 03/11/2015 Comp Metabolic Nzf985 ALBUMIN 3.8 g/dL 03/11/2015 Comp Metabolic Qey882 TPRO 6.4 g/dL 03/11/2015 Comp Metabolic Hux630 GLOB 2.6 g/dL 03/11/2015 Comp Metabolic Xlu951 A/G Ratio 1.5 Ratio 03/11/2015 Comp Metabolic Nfv467 Osmo 274 mOsmo 03/11/2015 Lipid Ord30 CHOL 149 mg/dL 03/11/2015 Lipid Ord30 HDL 49.0 mg/dl 03/11/2015 Lipid Ord30 TRIG 84 mg/dL 03/11/2015 Lipid Ord30 LDL 83 mg/dL 03/11/2015 Lipid Ord30 C/HDL 3.0 Ratio 03/11/2015 %Hba1C Pcm559 % HbA1c 62782-3 5.9 % 03/11/2015 %Hba1C Hix734 Gluc Ave 123 mg/dL 03/11/2015 Tsh Ord6 hTSH II 0.66 uIU/mL 03/11/2015 Cbc With Differential Ord2 WBC 5.6 K/uL 03/11/2015 Cbc With Differential Ord2 LYM 2.1 K/uL 03/11/2015 Cbc With Differential Ord2 LYM% 38.0 % 03/11/2015 Cbc With Differential Ord2 NEUT/GRAN 3.1 K/uL 03/11/2015 Cbc With Differential Ord2 NEUT/GRAN % 54.8 % 03/11/2015 Cbc With Differential Ord2 MID 0.4 K/uL 03/11/2015 Cbc With Differential Ord2 MID% 7.2 % 03/11/2015 Cbc With Differential Ord2 RBC 3.85 M/uL 03/11/2015 Cbc With Differential Ord2 HGB 11.4 g/dL 03/11/2015 Cbc With Differential Ord2 HCT 37.3 % 03/11/2015 Cbc With Differential Ord2 MCV 97 fL 03/11/2015 Cbc With Differential Ord2 MCH 30 pg 03/11/2015 Cbc With Differential Ord2 MCHC 31 g/dL 03/11/2015 Cbc With Differential Ord2 PLT 261 K/uL 03/11/2015 Cbc With Differential Ord2 RDW 13.8 % 03/11/2015 Review of Systems System Result Effective Dates Constitutional No recent illness 2017 Constitutional No chills 07/10/2017 Constitutional fatigue 07/10/2017 Constitutional fever 07/10/2017 Constitutional No insomnia 07/10/2017 Constitutional No malaise 07/10/2017 Eyes No blindness 07/10/2017 Eyes No vision change 07/10/2017 Ears/Nose/Throat/Neck No dental pain Ears/Nose/Throat/Neck No dizziness 2017 Ears/Nose/Throat/Neck No dysphagia 2017 Ears/Nose/Throat/Neck No headache 2017 Ears/Nose/Throat/Neck No hearing loss Ears/Nose/Throat/Neck No nasal allergies 07/10/2017 Ears/Nose/Throat/Neck No sore throat Ears/Nose/Throat/Neck No postnasal drip 07/10/2017 Ears/Nose/Throat/Neck No sinus congestion 07/10/2017 Cardiovascular No chest pain/pressure Cardiovascular No dyspnea 07/10/2017 Cardiovascular edema 07/10/2017 Cardiovascular No exercise intolerance Cardiovascular fatigue 07/10/2017 Cardiovascular No near-syncope/dizziness 07/10/2017 Respiratory No chest tightness 2017 Respiratory cough 07/10/2017 Respiratory No dyspnea 07/10/2017 Respiratory No pedal edema 07/10/2017 Gastrointestinal No abdominal pain 2017 Gastrointestinal No constipation 2017 Gastrointestinal No diarrhea 07/10/2017 Gastrointestinal No gastroesophageal reflux 07/10/2017 Gastrointestinal No nausea 07/10/2017 Gastrointestinal No vomiting 07/10/2017 Genitourinary/Nephrology No urinary incontinence 07/10/2017 Musculoskeletal No stiffness 07/10/2017 Musculoskeletal No swelling 07/10/2017 Musculoskeletal No muscle weakness 2017 Musculoskeletal No myalgias 07/10/2017 Dermatologic No rash 07/10/2017 Dermatologic No sores 07/10/2017 Dermatologic No scar 07/10/2017 Neurologic No dizziness 07/10/2017 Neurologic No headache 07/10/2017 Neurologic No neck pain 07/10/2017 Neurologic No syncope 07/10/2017 Psychiatric No anxiety 07/10/2017 Psychiatric depression 07/10/2017 Constitutional No recent illness 2016 Constitutional No chills 02/14/2017 Constitutional No diaphoresis 02/14/2017 Constitutional No fever 02/14/2017 Eyes No eye erythema 02/14/2017 Ears/Nose/Throat/Neck nasal allergies 10/2016 Ears/Nose/Throat/Neck dizziness 2016 Ears/Nose/Throat/Neck nasal discharge 10/2016 Ears/Nose/Throat/Neck No sinus congestion 02/14/2017 Ears/Nose/Throat/Neck postnasal drip 10/2016 Cardiovascular No chest pain/pressure 10/2016 Respiratory No cough 02/14/2017 Respiratory No dyspnea 02/14/2017 Gastrointestinal No abdominal pain 2016 Neurologic No alteration of consciousness 02/14/2017 Neurologic No mental status change 2016 Constitutional No recent illness 2016 Constitutional No chills 01/24/2017 Constitutional fatigue 01/24/2017 Eyes No eye erythema 01/24/2017 Eyes No vision change 01/24/2017 Ears/Nose/Throat/Neck No nasal allergies 01/24/2017 Cardiovascular No chest pain/pressure Cardiovascular No dyspnea 01/24/2017 Cardiovascular fatigue 01/24/2017 Respiratory No dyspnea 01/24/2017 Dermatologic No rash 01/24/2017 Dermatologic No scar 01/24/2017 Psychiatric No anxiety 01/24/2017 Psychiatric depression 01/24/2017 Constitutional No diaphoresis 01/24/2017 Ears/Nose/Throat/Neck No nasal discharge 01/24/2017 Neurologic No alteration of consciousness 01/24/2017 Neurologic No mental status change 2016 Constitutional No recent illness 2016 Constitutional No chills 01/19/2017 Constitutional fatigue 01/19/2017 Constitutional fever 01/19/2017 Constitutional No insomnia 01/19/2017 Constitutional No malaise 01/19/2017 Eyes No blindness 01/19/2017 Eyes No vision change 01/19/2017 Ears/Nose/Throat/Neck No dental pain 03/2017 Ears/Nose/Throat/Neck No dizziness 2016 Ears/Nose/Throat/Neck No dysphagia 2016 Ears/Nose/Throat/Neck No headache 2016 Ears/Nose/Throat/Neck No hearing loss 03/2017 Ears/Nose/Throat/Neck No nasal allergies 01/19/2017 Ears/Nose/Throat/Neck No sore throat 03/2017 Ears/Nose/Throat/Neck No postnasal drip 01/19/2017 Ears/Nose/Throat/Neck No sinus congestion 01/19/2017 Cardiovascular No chest pain/pressure 03/2017 Cardiovascular No dyspnea 01/19/2017 Cardiovascular edema 01/19/2017 Cardiovascular No exercise intolerance Cardiovascular fatigue 01/19/2017 Cardiovascular No near-syncope/dizziness 01/19/2017 Respiratory No chest tightness 2016 Respiratory cough 01/19/2017 Respiratory No dyspnea 01/19/2017 Respiratory No pedal edema 01/19/2017 Gastrointestinal No abdominal pain 2016 Gastrointestinal No constipation 2016 Gastrointestinal No diarrhea 01/19/2017 Gastrointestinal No gastroesophageal reflux 01/19/2017 Gastrointestinal No nausea 01/19/2017 Gastrointestinal No vomiting 01/19/2017 Genitourinary/Nephrology No urinary incontinence 01/19/2017 Musculoskeletal No stiffness 01/19/2017 Musculoskeletal No swelling 01/19/2017 Musculoskeletal No muscle weakness 2016 Musculoskeletal No myalgias 01/19/2017 Dermatologic No rash 01/19/2017 Dermatologic No sores 01/19/2017 Dermatologic No scar 01/19/2017 Neurologic No dizziness 01/19/2017 Neurologic No headache 01/19/2017 Neurologic No neck pain 01/19/2017 Neurologic No syncope 01/19/2017 Psychiatric No anxiety 01/19/2017 Psychiatric depression 01/19/2017 Constitutional No recent illness 2016 Constitutional No chills 08/08/2016 Constitutional fatigue 08/08/2016 Constitutional fever 08/08/2016 Constitutional No insomnia 08/08/2016 Constitutional No malaise 08/08/2016 Eyes No blindness 08/08/2016 Eyes No vision change 08/08/2016 Ears/Nose/Throat/Neck No dental pain Ears/Nose/Throat/Neck No dizziness 2016 Ears/Nose/Throat/Neck No dysphagia 2016 Ears/Nose/Throat/Neck No headache 2016 Ears/Nose/Throat/Neck No hearing loss Ears/Nose/Throat/Neck No nasal allergies 08/08/2016 Ears/Nose/Throat/Neck No sore throat Ears/Nose/Throat/Neck No postnasal drip 08/08/2016 Ears/Nose/Throat/Neck No sinus congestion 08/08/2016 Cardiovascular No chest pain/pressure Cardiovascular No dyspnea 08/08/2016 Cardiovascular edema 08/08/2016 Cardiovascular No exercise intolerance Cardiovascular fatigue 08/08/2016 Cardiovascular No near-syncope/dizziness 08/08/2016 Respiratory No chest tightness 2016 Respiratory cough 08/08/2016 Respiratory No dyspnea 08/08/2016 Respiratory No pedal edema 08/08/2016 Gastrointestinal No abdominal pain 2016 Gastrointestinal No constipation 2016 Gastrointestinal No diarrhea 08/08/2016 Gastrointestinal No gastroesophageal reflux 08/08/2016 Gastrointestinal No nausea 08/08/2016 Gastrointestinal No vomiting 08/08/2016 Genitourinary/Nephrology No urinary incontinence 08/08/2016 Musculoskeletal No stiffness 08/08/2016 Musculoskeletal No swelling 08/08/2016 Musculoskeletal No muscle weakness 2016 Musculoskeletal No myalgias 08/08/2016 Dermatologic No rash 08/08/2016 Dermatologic No sores 08/08/2016 Dermatologic No scar 08/08/2016 Neurologic No dizziness 08/08/2016 Neurologic No headache 08/08/2016 Neurologic No neck pain 08/08/2016 Neurologic No syncope 08/08/2016 Psychiatric No anxiety 08/08/2016 Psychiatric depression 08/08/2016 Constitutional recent illness 05/03/2016 Respiratory chest congestion 05/03/2016 Respiratory cough 05/03/2016 Cardiovascular No chest pain/pressure Constitutional recent illness 05/02/2016 Constitutional chills 05/02/2016 Constitutional fever 05/02/2016 Eyes No eye erythema 05/02/2016 Ears/Nose/Throat/Neck nasal allergies Ears/Nose/Throat/Neck nasal discharge Ears/Nose/Throat/Neck postnasal drip Ears/Nose/Throat/Neck sinus congestion Cardiovascular No chest pain/pressure Respiratory productive sputum 05/02/2016 Respiratory cough 05/02/2016 Gastrointestinal No abdominal pain 2015 Musculoskeletal No joint complaint 2015 Dermatologic No rash 05/02/2016 Neurologic No alteration of consciousness 05/02/2016 Neurologic No mental status change 2015 Ears/Nose/Throat/Neck sore throat 2015 Respiratory chest congestion 05/02/2016 Constitutional No recent illness 2015 Constitutional No chills 04/11/2016 Constitutional fatigue 04/11/2016 Constitutional No fever 04/11/2016 Constitutional No insomnia 04/11/2016 Constitutional No malaise 04/11/2016 Eyes No blindness 04/11/2016 Eyes No vision change 04/11/2016 Ears/Nose/Throat/Neck No dental pain Ears/Nose/Throat/Neck No dizziness 2015 Ears/Nose/Throat/Neck No dysphagia 2015 Ears/Nose/Throat/Neck No headache 2015 Ears/Nose/Throat/Neck No hearing loss Ears/Nose/Throat/Neck No nasal allergies 04/11/2016 Ears/Nose/Throat/Neck No sore throat Ears/Nose/Throat/Neck No postnasal drip 04/11/2016 Ears/Nose/Throat/Neck No sinus congestion 04/11/2016 Cardiovascular No chest pain/pressure Cardiovascular No dyspnea 04/11/2016 Cardiovascular edema 04/11/2016 Cardiovascular No exercise intolerance Cardiovascular fatigue 04/11/2016 Cardiovascular No near-syncope/dizziness 04/11/2016 Respiratory No chest tightness 2015 Respiratory No cough 04/11/2016 Respiratory No dyspnea 04/11/2016 Respiratory No pedal edema 04/11/2016 Gastrointestinal No abdominal pain 2015 Gastrointestinal No constipation 2015 Gastrointestinal No diarrhea 04/11/2016 Gastrointestinal No gastroesophageal reflux 04/11/2016 Gastrointestinal No nausea 04/11/2016 Gastrointestinal No vomiting 04/11/2016 Genitourinary/Nephrology No urinary incontinence 04/11/2016 Musculoskeletal No stiffness 04/11/2016 Musculoskeletal No swelling 04/11/2016 Musculoskeletal No muscle weakness 2015 Musculoskeletal No myalgias 04/11/2016 Dermatologic No rash 04/11/2016 Dermatologic No sores 04/11/2016 Dermatologic No scar 04/11/2016 Neurologic No dizziness 04/11/2016 Neurologic No headache 04/11/2016 Neurologic No neck pain 04/11/2016 Neurologic No syncope 04/11/2016 Psychiatric No anxiety 04/11/2016 Psychiatric depression 04/11/2016 Constitutional No recent illness 2015 Constitutional No fever 02/17/2016 Eyes No eye erythema 02/17/2016 Eyes No vision change 02/17/2016 Ears/Nose/Throat/Neck No nasal allergies 02/17/2016 Cardiovascular No chest pain/pressure 12/2015 Cardiovascular No dyspnea 02/17/2016 Respiratory No dyspnea 02/17/2016 Gastrointestinal No abdominal pain 2015 Ears/Nose/Throat/Neck No nasal discharge 02/17/2016 Respiratory cough 02/17/2016 Musculoskeletal No joint complaint 2015 Dermatologic scar 02/17/2016 Neurologic No alteration of consciousness 02/17/2016 Neurologic No mental status change 2015 Constitutional No recent illness 2015 Constitutional No fatigue 02/08/2016 Constitutional No fever 02/08/2016 Dermatologic mole change 02/08/2016 Constitutional No recent illness 2015 Constitutional No chills 01/26/2016 Constitutional fatigue 01/26/2016 Constitutional No fever 01/26/2016 Constitutional No insomnia 01/26/2016 Constitutional No malaise 01/26/2016 Eyes No blindness 01/26/2016 Eyes No vision change 01/26/2016 Ears/Nose/Throat/Neck No dental pain Ears/Nose/Throat/Neck No dizziness 2015 Ears/Nose/Throat/Neck No dysphagia 2015 Ears/Nose/Throat/Neck No headache 2015 Ears/Nose/Throat/Neck No hearing loss Ears/Nose/Throat/Neck No nasal allergies 01/26/2016 Ears/Nose/Throat/Neck No sore throat Ears/Nose/Throat/Neck No postnasal drip 01/26/2016 Ears/Nose/Throat/Neck No sinus congestion 01/26/2016 Cardiovascular No chest pain/pressure Cardiovascular No dyspnea 01/26/2016 Cardiovascular edema 01/26/2016 Cardiovascular No exercise intolerance Cardiovascular fatigue 01/26/2016 Cardiovascular No near-syncope/dizziness 01/26/2016 Respiratory No chest tightness 2015 Respiratory No cough 01/26/2016 Respiratory No dyspnea 01/26/2016 Respiratory No pedal edema 01/26/2016 Gastrointestinal No abdominal pain 2015 Gastrointestinal No constipation 2015 Gastrointestinal No diarrhea 01/26/2016 Gastrointestinal No gastroesophageal reflux 01/26/2016 Gastrointestinal No nausea 01/26/2016 Gastrointestinal No vomiting 01/26/2016 Genitourinary/Nephrology No urinary incontinence 01/26/2016 Musculoskeletal No stiffness 01/26/2016 Musculoskeletal No swelling 01/26/2016 Musculoskeletal No muscle weakness 2015 Musculoskeletal No myalgias 01/26/2016 Dermatologic No rash 01/26/2016 Dermatologic No sores 01/26/2016 Dermatologic No scar 01/26/2016 Neurologic No dizziness 01/26/2016 Neurologic No headache 01/26/2016 Neurologic No neck pain 01/26/2016 Neurologic No syncope 01/26/2016 Psychiatric No anxiety 01/26/2016 Psychiatric depression 01/26/2016 Constitutional fatigue 01/08/2016 Eyes No eye discharge 01/08/2016 Eyes No eye erythema 01/08/2016 Eyes No vision change 01/08/2016 Ears/Nose/Throat/Neck No nasal allergies 01/08/2016 Ears/Nose/Throat/Neck No nasal discharge 01/08/2016 Cardiovascular No chest pain/pressure Cardiovascular No dyspnea 01/08/2016 Respiratory No cough 01/08/2016 Respiratory No dyspnea 01/08/2016 Gastrointestinal No vomiting 01/08/2016 Dermatologic No rash 01/08/2016 Dermatologic No scar 01/08/2016 Neurologic No alteration of consciousness 01/08/2016 Neurologic No mental status change 2015 Constitutional recent illness 01/08/2016 Constitutional No fever 01/08/2016 Constitutional malaise 01/08/2016 Gastrointestinal No nausea 01/08/2016 Gastrointestinal diarrhea 01/08/2016 Gastrointestinal No constipation 2015 Gastrointestinal No abdominal pain 2015 Constitutional recent illness 01/01/2016 Eyes No eye discharge 01/01/2016 Eyes No vision change 01/01/2016 Ears/Nose/Throat/Neck nasal allergies Ears/Nose/Throat/Neck nasal discharge Ears/Nose/Throat/Neck sinus congestion Ears/Nose/Throat/Neck sore throat 2015 Cardiovascular No chest pain/pressure Respiratory cough 01/01/2016 Neurologic No alteration of consciousness 01/01/2016 Respiratory dyspnea on exertion 2015 Respiratory chest congestion 01/01/2016 Constitutional No chills 12/29/2015 Constitutional No diaphoresis 12/29/2015 Constitutional No fever 12/29/2015 Eyes No eye discharge 12/29/2015 Eyes No vision change 12/29/2015 Ears/Nose/Throat/Neck nasal discharge Ears/Nose/Throat/Neck sore throat 2015 Cardiovascular No chest pain/pressure Respiratory cough 12/29/2015 Respiratory No dyspnea 12/29/2015 Gastrointestinal No constipation 2015 Gastrointestinal No diarrhea 12/29/2015 Dermatologic No rash 12/29/2015 Dermatologic No sores 12/29/2015 Constitutional recent illness 12/29/2015 Ears/Nose/Throat/Neck nasal allergies Ears/Nose/Throat/Neck sinus congestion Neurologic No alteration of consciousness 12/29/2015 Constitutional No recent illness 2015 Constitutional No chills 07/27/2015 Constitutional fatigue 07/27/2015 Constitutional No fever 07/27/2015 Constitutional No insomnia 07/27/2015 Constitutional No malaise 07/27/2015 Eyes No vision change 07/27/2015 Ears/Nose/Throat/Neck No nasal allergies 07/27/2015 Ears/Nose/Throat/Neck No sore throat Ears/Nose/Throat/Neck No postnasal drip 07/27/2015 Ears/Nose/Throat/Neck No sinus congestion 07/27/2015 Cardiovascular No chest pain/pressure Cardiovascular No dyspnea 07/27/2015 Respiratory No cough 07/27/2015 Respiratory No dyspnea 07/27/2015 Gastrointestinal No abdominal pain 2015 Gastrointestinal No constipation 2015 Gastrointestinal No diarrhea 07/27/2015 Gastrointestinal No nausea 07/27/2015 Gastrointestinal No vomiting 07/27/2015 Musculoskeletal No stiffness 07/27/2015 Musculoskeletal No swelling 07/27/2015 Musculoskeletal No muscle weakness 2015 Musculoskeletal No myalgias 07/27/2015 Dermatologic No rash 07/27/2015 Dermatologic No sores 07/27/2015 Dermatologic No scar 07/27/2015 Psychiatric No anxiety 07/27/2015 Psychiatric depression 07/27/2015 Eyes No eye discharge 07/27/2015 Eyes No eye erythema 07/27/2015 Ears/Nose/Throat/Neck No nasal discharge 07/27/2015 Respiratory No chest congestion 2015 Genitourinary/Nephrology No dysuria 07/27 Neurologic No alteration of consciousness 07/27/2015 Neurologic No mental status change 2015 Constitutional No recent illness 2015 Constitutional No anorexia 07/16/2015 Constitutional No night sweats 2015 Constitutional No chills 07/16/2015 Constitutional No diaphoresis 07/16/2015 Constitutional No fatigue 07/16/2015 Constitutional No fever 07/16/2015 Constitutional No insomnia 07/16/2015 Constitutional No malaise 07/16/2015 Constitutional No weight loss 07/16/2015 Constitutional No weight gain 07/16/2015 Constitutional No obesity 07/16/2015 Respiratory cough 07/16/2015 Respiratory productive sputum 07/16/2015 Respiratory chest congestion 07/16/2015 Respiratory nocturnal cough 07/16/2015 Respiratory No dyspnea 07/16/2015 Respiratory dyspnea on exertion 2015 Respiratory No cigarette smoking 2015 Respiratory No chest tightness 2015 Ears/Nose/Throat/Neck nasal discharge 09/2015 Ears/Nose/Throat/Neck headache 2015 Ears/Nose/Throat/Neck No dizziness 2015 Ears/Nose/Throat/Neck No otalgia 2015 Ears/Nose/Throat/Neck No otitis media 09/2015 Ears/Nose/Throat/Neck No sinus congestion 07/16/2015 Ears/Nose/Throat/Neck No sore throat 09/2015 Cardiovascular No chest pain/pressure 09/2015 Eyes No vision change 07/16/2015 Eyes No eye discharge 07/16/2015 Gastrointestinal No diarrhea 07/16/2015 Gastrointestinal No constipation 2015 Musculoskeletal No myalgias 07/16/2015 Musculoskeletal No joint complaint 2015 Musculoskeletal No muscle weakness 2015 Musculoskeletal arthralgia(s) 07/16/2015 Musculoskeletal No stiffness 07/16/2015 Dermatologic No sores 07/16/2015 Dermatologic No rash 07/16/2015 Genitourinary/Nephrology No dysuria 07/16 Genitourinary/Nephrology No flank pain Psychiatric No anxiety 07/16/2015 Psychiatric No depression 07/16/2015 Constitutional No recent illness 2014 Constitutional No chills 03/16/2015 Constitutional fatigue 03/16/2015 Constitutional No fever 03/16/2015 Constitutional No insomnia 03/16/2015 Constitutional No malaise 03/16/2015 Constitutional weight gain 03/16/2015 Eyes No blindness 03/16/2015 Eyes No vision change 03/16/2015 Ears/Nose/Throat/Neck No dental pain 10/2014 Ears/Nose/Throat/Neck No dizziness 2014 Ears/Nose/Throat/Neck No dysphagia 2014 Ears/Nose/Throat/Neck No headache 2014 Ears/Nose/Throat/Neck No hearing loss 10/2014 Ears/Nose/Throat/Neck No nasal allergies 03/16/2015 Ears/Nose/Throat/Neck No sore throat 10/2014 Ears/Nose/Throat/Neck No postnasal drip 03/16/2015 Ears/Nose/Throat/Neck No sinus congestion 03/16/2015 Cardiovascular No chest pain/pressure 10/2014 Cardiovascular No dyspnea 03/16/2015 Cardiovascular edema 03/16/2015 Cardiovascular No exercise intolerance Cardiovascular fatigue 03/16/2015 Cardiovascular No near-syncope/dizziness 03/16/2015 Respiratory No chest tightness 2014 Respiratory No cough 03/16/2015 Respiratory No dyspnea 03/16/2015 Respiratory No pedal edema 03/16/2015 Gastrointestinal No abdominal pain 2014 Gastrointestinal No constipation 2014 Gastrointestinal No diarrhea 03/16/2015 Gastrointestinal No gastroesophageal reflux 03/16/2015 Gastrointestinal No nausea 03/16/2015 Gastrointestinal No vomiting 03/16/2015 Genitourinary/Nephrology No urinary incontinence 03/16/2015 Musculoskeletal No stiffness 03/16/2015 Musculoskeletal No swelling 03/16/2015 Musculoskeletal No muscle weakness 2014 Musculoskeletal No myalgias 03/16/2015 Dermatologic No rash 03/16/2015 Dermatologic No sores 03/16/2015 Dermatologic No scar 03/16/2015 Neurologic No dizziness 03/16/2015 Neurologic No headache 03/16/2015 Neurologic No neck pain 03/16/2015 Neurologic No syncope 03/16/2015 Psychiatric No anxiety 03/16/2015 Psychiatric depression 03/16/2015 Constitutional No recent illness 2014 Constitutional No chills 12/15/2014 Constitutional fatigue 12/15/2014 Constitutional No fever 12/15/2014 Constitutional No insomnia 12/15/2014 Constitutional No malaise 12/15/2014 Eyes No blindness 12/15/2014 Eyes No vision change 12/15/2014 Ears/Nose/Throat/Neck No dental pain 11/2014 Ears/Nose/Throat/Neck No dizziness 2014 Ears/Nose/Throat/Neck No dysphagia 2014 Ears/Nose/Throat/Neck No headache 2014 Ears/Nose/Throat/Neck No hearing loss 11/2014 Ears/Nose/Throat/Neck No nasal allergies 12/15/2014 Ears/Nose/Throat/Neck No sore throat 11/2014 Ears/Nose/Throat/Neck No postnasal drip 12/15/2014 Ears/Nose/Throat/Neck No sinus congestion 12/15/2014 Cardiovascular No chest pain/pressure 11/2014 Cardiovascular No dyspnea 12/15/2014 Cardiovascular edema 12/15/2014 Cardiovascular No exercise intolerance Cardiovascular fatigue 12/15/2014 Cardiovascular No near-syncope/dizziness 12/15/2014 Respiratory No chest tightness 2014 Respiratory No cough 12/15/2014 Respiratory No dyspnea 12/15/2014 Respiratory No pedal edema 12/15/2014 Gastrointestinal No abdominal pain 2014 Gastrointestinal No constipation 2014 Gastrointestinal No diarrhea 12/15/2014 Gastrointestinal No gastroesophageal reflux 12/15/2014 Gastrointestinal No nausea 12/15/2014 Gastrointestinal No vomiting 12/15/2014 Genitourinary/Nephrology No dysuria 12/15 Genitourinary/Nephrology No nocturia 11/2014 Genitourinary/Nephrology No urinary incontinence 12/15/2014 Musculoskeletal No stiffness 12/15/2014 Musculoskeletal No swelling 12/15/2014 Musculoskeletal No muscle weakness 2014 Musculoskeletal No myalgias 12/15/2014 Dermatologic No rash 12/15/2014 Dermatologic No sores 12/15/2014 Dermatologic No scar 12/15/2014 Neurologic No dizziness 12/15/2014 Neurologic No headache 12/15/2014 Neurologic No neck pain 12/15/2014 Neurologic No syncope 12/15/2014 Psychiatric No anxiety 12/15/2014 Psychiatric depression 12/15/2014 Constitutional weight gain 12/15/2014 Physical Exam Exam Name System Name Item Name Status Result Effective Dates Notes Full Exam - General 1994 Constitutional general appearance Development: well developed 07/10/2017 None Full Exam - General 1994 Constitutional general appearance Development: appears stated age 0107/10/2017 None Full Exam - General 1994 Constitutional general appearance Hygiene/Attention to Grooming: good hygiene 07/10/2017 None Full Exam - General 1994 Eyes conjunctiva /eyelids Overall: conjunctiva clear 07/10/2017 None Full Exam - General 1994 Eyes conjunctiva /eyelids Overall: cornea clear 07/10/2017 None Full Exam - General 1994 Eyes conjunctiva /eyelids Overall: eyelids normal 07/10/2017 None Full Exam - General 1994 Eyes pupils and irises Overall: pupils equal, round, reactive to light and accomodation 07/10/2017 None Full Exam - General 1994 Ears/Nose/Throat otoscopic exam Overall: external auditory canals clear 07/10/2017 None Full Exam - General 1994 Ears/Nose/Throat otoscopic exam Overall: tympanic membranes clear 07/10/2017 None Full Exam - General 1994 Ears/Nose/Throat lips/teeth/gingiva Overall: benign lips 07/10/2017 None Full Exam - General 1994 Ears/Nose/Throat lips/teeth/gingiva Overall: normal dentition 07/10/2017 None Full Exam - General 1994 Ears/Nose/Throat oral cavity/pharynx/larynx Overall: oral mucosa clear 07/10/2017 None Full Exam - General 1994 Ears/Nose/Throat oral cavity/pharynx/larynx Overall: oropharyngeal mucosa clear 07/10/2017 None Full Exam - General 1995 Ears/Nose/Throat oral cavity/pharynx/larynx Overall: hypopharynx benign 07/10/2017 None Full Exam - General 1994 Ears/Nose/Throat oral cavity/pharynx/larynx Overall: no masses 07/10/2017 None Full Exam - General 1994 Respiratory auscultation Lower lung field: crackles 07/10/2017 None Full Exam - General 1994 Respiratory respiratory effort/rhythm Overall: no retractions 07/10/2017 None Full Exam - General 1994 Respiratory respiratory effort/rhythm Overall: normal rate 07/10/2017 None Full Exam - General 1994 Cardiovascular extremities Overall: no clubbing 07/10/2017 None Full Exam - General 1994 Cardiovascular auscultation of heart Overall: regular rate 07/10/2017 None Full Exam - General 1994 Cardiovascular auscultation of heart Overall: normal heart sounds 07/10/2017 None Full Exam - General 1994 Abdomen abdominal exam Overall: no tenderness 07/10/2017 None Full Exam - General 1994 Abdomen abdominal exam Overall: normal bowel sounds 07/10/2017 None Full Exam - General 1994 Lymphatic neck nodes Overall: anterior cervical chain benign 07/10/2017 None Full Exam - General 1994 Lymphatic neck nodes Overall: posterior cervical chain benign 07/10/2017 None Full Exam - General 1994 Musculoskeletal head and neck Overall: cervical spine benign 07/10/2017 None Full Exam - General 1994 Neurologic deep tendon reflexes Overall: deep tendon reflexes intact 07/10/2017 None Full Exam - General 1994 Neurologic cranial nerves Overall: crainial nerves 2 - 12 grossly intact 07/10/2017 None Full Exam - General 1994 Psychiatric orientation/consciousness Overall: oriented to person, place and time 07/10/2017 None Full Exam - General 1994 Psychiatric mood and affect Overall: normal mood and affect 07/10/2017 None Full Exam - ENT Constitutional general appearance Overall: well nourished 02/14/2017 None Full Exam - ENT Constitutional general appearance Overall: well developed 02/14/2017 None Full Exam - ENT Constitutional general appearance Overall: in no acute distress 02/14/2017 None Full Exam - ENT Ears/Nose/Throat otoscopic exam Overall: external auditory canals normal 02/14/2017 None Full Exam - ENT Ears/Nose/Throat lips/ teeth/gingiva Overall: benign lips 02/14/2017 None Full Exam - ENT Ears/Nose/Throat otoscopic exam Left tympanic membrane: air -fluid level 02/14/2017 None Full Exam - ENT Ears/Nose/Throat oropharynx Overall: oral mucosa clear 02/14/2017 None Full Exam - ENT Respiratory inspection Overall: normal rate 10/2016 None Full Exam - ENT Respiratory inspection Overall: no retractions 02/14/2017 None Full Exam - ENT Respiratory auscultation Overall: breath sounds clear bilaterally 02/14/2017 None Full Exam - ENT Cardiovascular auscultation of heart Overall: normal heart sounds 02/14/2017 None Full Exam - ENT Cardiovascular auscultation of heart Overall: regular rate 02/14/2017 None Full Exam - ENT Lymphatic palpation of lymph nodes Overall: posterior cervical chain benign 02/14/2017 None Full Exam - ENT Lymphatic palpation of lymph nodes Overall: anterior cervical chain benign 02/14/2017 None Full Exam - ENT Neurologic mood and affect Overall: normal mood 02/14/2017 None Full Exam - ENT Neurologic mood and affect Overall: normal affect 02/14/2017 None Full Exam - ENT Neurologic orientation Overall: oriented to person, place and time 02/14/2017 None Full Exam - ENT Neurologic cranial nerves /coordination Overall: cranial nerves 2- 12 grossly intact 02/14/2017 None Full Exam - ENT Eyes ocular motility Overall: extraocular movement intact 02/14/2017 None Full Exam - ENT Eyes ocular motility Overall: normal gaze alignment 02/14/2017 None Full Exam - General 1994 Constitutional general appearance Hygiene/Attention to Grooming: good hygiene 01/24/2017 None Full Exam - General 1994 Eyes conjunctiva /eyelids Overall: conjunctiva clear 01/24/2017 None Full Exam - General 1994 Eyes conjunctiva /eyelids Overall: eyelids normal 01/24/2017 None Full Exam - General 1994 Ears/Nose/Throat lips/teeth/gingiva Overall: benign lips 01/24/2017 None Full Exam - General 1994 Ears/Nose/Throat oral cavity/pharynx/larynx Overall: oral mucosa clear 01/24/2017 None Full Exam - General 1994 Respiratory respiratory effort/rhythm Overall: no retractions 01/24/2017 None Full Exam - General 1994 Respiratory respiratory effort/rhythm Overall: normal rate 01/24/2017 None Full Exam - General 1994 Cardiovascular extremities Overall: no clubbing 01/24/2017 None Full Exam - General 1994 Neurologic cranial nerves Overall: crainial nerves 2 - 12 grossly intact 01/24/2017 None Full Exam - General 1994 Psychiatric orientation/consciousness Overall: oriented to person, place and time 01/24/2017 None Full Exam - General 1994 Psychiatric mood and affect Overall: normal mood and affect 01/24/2017 None Full Exam - General 1994 Constitutional general appearance Overall: well developed 01/24/2017 None Full Exam - General 1994 Constitutional general appearance Overall: in no acute distress 01/24/2017 None Full Exam - General 1994 Constitutional general appearance Overall: well nourished 01/24/2017 None Full Exam - General 1994 Musculoskeletal head and neck Overall: head atraumatic 01/24/2017 None Full Exam - General 1994 Psychiatric appearance Overall: well-groomed, good eye contact 01/24/2017 None Full Exam - General 1994 Constitutional general appearance Development: well developed 01/19/2017 None Full Exam - General 1994 Constitutional general appearance Development: appears stated age 0801/19/2017 None Full Exam - General 1994 Constitutional general appearance Hygiene/Attention to Grooming: good hygiene 01/19/2017 None Full Exam - General 1994 Eyes conjunctiva /eyelids Overall: conjunctiva clear 01/19/2017 None Full Exam - General 1994 Eyes conjunctiva /eyelids Overall: cornea clear 01/19/2017 None Full Exam - General 1994 Eyes conjunctiva /eyelids Overall: eyelids normal 01/19/2017 None Full Exam - General 1994 Eyes pupils and irises Overall: pupils equal, round, reactive to light and accomodation 01/19/2017 None Full Exam - General 1994 Ears/Nose/Throat otoscopic exam Overall: external auditory canals clear 01/19/2017 None Full Exam - General 1994 Ears/Nose/Throat otoscopic exam Overall: tympanic membranes clear 01/19/2017 None Full Exam - General 1994 Ears/Nose/Throat lips/teeth/gingiva Overall: benign lips 01/19/2017 None Full Exam - General 1994 Ears/Nose/Throat lips/teeth/gingiva Overall: normal dentition 01/19/2017 None Full Exam - General 1994 Ears/Nose/Throat oral cavity/pharynx/larynx Overall: oral mucosa clear 01/19/2017 None Full Exam - General 1994 Ears/Nose/Throat oral cavity/pharynx/larynx Overall: oropharyngeal mucosa clear 01/19/2017 None Full Exam - General 1994 Ears/Nose/Throat oral cavity/pharynx/larynx Overall: hypopharynx benign 01/19/2017 None Full Exam - General 1994 Ears/Nose/Throat oral cavity/pharynx/larynx Overall: no masses 01/19/2017 None Full Exam - General 1994 Respiratory auscultation Lower lung field: crackles 01/19/2017 None Full Exam - General 1994 Respiratory respiratory effort/rhythm Overall: no retractions 01/19/2017 None Full Exam - General 1994 Respiratory respiratory effort/rhythm Overall: normal rate 01/19/2017 None Full Exam - General 1994 Cardiovascular extremities Overall: no clubbing 01/19/2017 None Full Exam - General 1994 Cardiovascular auscultation of heart Overall: regular rate 01/19/2017 None Full Exam - General 1994 Cardiovascular auscultation of heart Overall: normal heart sounds 01/19/2017 None Full Exam - General 1994 Abdomen abdominal exam Overall: no tenderness 01/19/2017 None Full Exam - General 1994 Abdomen abdominal exam Overall: normal bowel sounds 01/19/2017 None Full Exam - General 1994 Musculoskeletal head and neck Overall: cervical spine benign 01/19/2017 None Full Exam - General 1994 Neurologic deep tendon reflexes Overall: deep tendon reflexes intact 01/19/2017 None Full Exam - General 1994 Neurologic cranial nerves Overall: crainial nerves 2 - 12 grossly intact 01/19/2017 None Full Exam - General 1994 Psychiatric orientation/consciousness Overall: oriented to person, place and time 01/19/2017 None Full Exam - General 1994 Psychiatric mood and affect Overall: normal mood and affect 01/19/2017 None Full Exam - General 1994 Lymphatic neck nodes Overall: anterior cervical chain benign 01/19/2017 None Full Exam - General 1994 Lymphatic neck nodes Overall: posterior cervical chain benign 01/19/2017 None Full Exam - General 1994 Constitutional general appearance Development: well developed 08/08/2016 None Full Exam - General 1994 Constitutional general appearance Development: appears stated age 0208/08/2016 None Full Exam - General 1994 Constitutional general appearance Hygiene/Attention to Grooming: good hygiene 08/08/2016 None Full Exam - General 1994 Eyes conjunctiva /eyelids Overall: conjunctiva clear 08/08/2016 None Full Exam - General 1994 Eyes conjunctiva /eyelids Overall: cornea clear 08/08/2016 None Full Exam - General 1994 Eyes conjunctiva /eyelids Overall: eyelids normal 08/08/2016 None Full Exam - General 1994 Eyes pupils and irises Overall: pupils equal, round, reactive to light and accomodation 08/08/2016 None Full Exam - General 1994 Ears/Nose/Throat otoscopic exam Overall: external auditory canals clear 08/08/2016 None Full Exam - General 1994 Ears/Nose/Throat otoscopic exam Overall: tympanic membranes clear 08/08/2016 None Full Exam - General 1994 Ears/Nose/Throat lips/teeth/gingiva Overall: benign lips 08/08/2016 None Full Exam - General 1994 Ears/Nose/Throat lips/teeth/gingiva Overall: normal dentition 08/08/2016 None Full Exam - General 1994 Ears/Nose/Throat oral cavity/pharynx/larynx Overall: oral mucosa clear 08/08/2016 None Full Exam - General 1994 Ears/Nose/Throat oral cavity/pharynx/larynx Overall: oropharyngeal mucosa clear 08/08/2016 None Full Exam - General 1994 Ears/Nose/Throat oral cavity/pharynx/larynx Overall: hypopharynx benign 08/08/2016 None Full Exam - General 1994 Ears/Nose/Throat oral cavity/pharynx/larynx Overall: no masses 08/08/2016 None Full Exam - General 1994 Respiratory respiratory effort/rhythm Overall: no retractions 08/08/2016 None Full Exam - General 1994 Respiratory respiratory effort/rhythm Overall: normal rate 08/08/2016 None Full Exam - General 1994 Cardiovascular extremities Overall: no clubbing 08/08/2016 None Full Exam - General 1994 Cardiovascular auscultation of heart Overall: regular rate 08/08/2016 None Full Exam - General 1994 Cardiovascular auscultation of heart Overall: normal heart sounds 08/08/2016 None Full Exam - General 1994 Abdomen abdominal exam Overall: no tenderness 08/08/2016 None Full Exam - General 1994 Abdomen abdominal exam Overall: normal bowel sounds 08/08/2016 None Full Exam - General 1994 Musculoskeletal head and neck Overall: cervical spine benign 08/08/2016 None Full Exam - General 1994 Neurologic deep tendon reflexes Overall: deep tendon reflexes intact 08/08/2016 None Full Exam - General 1994 Neurologic cranial nerves Overall: crainial nerves 2 - 12 grossly intact 08/08/2016 None Full Exam - General 1994 Psychiatric orientation/consciousness Overall: oriented to person, place and time 08/08/2016 None Full Exam - General 1994 Psychiatric mood and affect Overall: normal mood and affect 08/08/2016 None Full Exam - General 1994 Respiratory auscultation Lower lung field: crackles 08/08/2016 None Full Exam - General 1994 Constitutional general appearance Overall: well developed 05/03/2016 None Full Exam - General 1994 Constitutional general appearance Evidence of Distress: anxious 05/03/2016 None Full Exam - General 1994 Eyes conjunctiva /eyelids Overall: conjunctiva clear 05/03/2016 None Full Exam - General 1994 Eyes conjunctiva /eyelids Overall: eyelids normal 05/03/2016 None Full Exam - General 1994 Ears/Nose/Throat otoscopic exam Overall: external auditory canals clear 05/03/2016 None Full Exam - General 1994 Ears/Nose/Throat otoscopic exam Tympanic membrane: air- fluid level 05/03/2016 None Full Exam - General 1994 Ears/Nose/Throat lips/teeth/gingiva Overall: benign lips 05/03/2016 None Full Exam - General 1994 Ears/Nose/Throat oral cavity/pharynx/larynx Oropharynx: erythema 05/03/2016 None Full Exam - General 1994 Respiratory auscultation Diffuse: diminished 05/03/2016 None Full Exam - General 1994 Respiratory auscultation Lower lung field: crackles 05/03/2016 None Full Exam - General 1994 Respiratory respiratory effort/rhythm Overall: no retractions 05/03/2016 None Full Exam - General 1994 Respiratory respiratory effort/rhythm Overall: normal rate 05/03/2016 None Full Exam - General 1994 Cardiovascular auscultation of heart Overall: regular rate 05/03/2016 None Full Exam - General 1994 Cardiovascular auscultation of heart Overall: normal heart sounds 05/03/2016 None Full Exam - General 1994 Lymphatic neck nodes Overall: anterior cervical chain benign 05/03/2016 None Full Exam - General 1994 Lymphatic neck nodes Overall: posterior cervical chain benign 05/03/2016 None Full Exam - General 1994 Psychiatric orientation/consciousness Overall: oriented to person, place and time 05/03/2016 None Full Exam - General 1994 Psychiatric mood and affect Overall: normal mood and affect 05/03/2016 None Full Exam - General 1994 Psychiatric mood and affect Mood: anxious 05/03/2016 None Full Exam - General 1994 Ears/Nose/Throat oral cavity/pharynx/larynx Oral mucosa: dry 05/03/2016 None Full Exam - General 1994 Constitutional general appearance Overall: well developed 05/02/2016 None Full Exam - General 1994 Eyes conjunctiva /eyelids Overall: conjunctiva clear 05/02/2016 None Full Exam - General 1994 Eyes conjunctiva /eyelids Overall: eyelids normal 05/02/2016 None Full Exam - General 1994 Ears/Nose/Throat otoscopic exam Overall: external auditory canals clear 05/02/2016 None Full Exam - General 1994 Ears/Nose/Throat otoscopic exam Tympanic membrane: air- fluid level 05/02/2016 None Full Exam - General 1994 Ears/Nose/Throat lips/teeth/gingiva Overall: benign lips 05/02/2016 None Full Exam - General 1994 Ears/Nose/Throat oral cavity/pharynx/larynx Overall: oral mucosa clear 05/02/2016 None Full Exam - General 1994 Ears/Nose/Throat oral cavity/pharynx/larynx Posterior Pharynx: clear post nasal drainage 05/02/2016 None Full Exam - General 1994 Respiratory auscultation Diffuse: diminished 05/02/2016 None Full Exam - General 1994 Respiratory respiratory effort/rhythm Overall: no retractions 05/02/2016 None Full Exam - General 1994 Respiratory respiratory effort/rhythm Overall: normal rate 05/02/2016 None Full Exam - General 1994 Cardiovascular auscultation of heart Overall: regular rate 05/02/2016 None Full Exam - General 1994 Cardiovascular auscultation of heart Overall: normal heart sounds 05/02/2016 None Full Exam - General 1994 Lymphatic neck nodes Overall: anterior cervical chain benign 05/02/2016 None Full Exam - General 1994 Lymphatic neck nodes Overall: posterior cervical chain benign 05/02/2016 None Full Exam - General 1994 Integument inspection of skin Overall: few scattered moles, no gross abnormalities 05/02/2016 None Full Exam - General 1994 Neurologic cranial nerves Overall: crainial nerves 2 - 12 grossly intact 05/02/2016 None Full Exam - General 1994 Psychiatric orientation/consciousness Overall: oriented to person, place and time 05/02/2016 None Full Exam - General 1994 Psychiatric mood and affect Overall: normal mood and affect 05/02/2016 None Full Exam - General 1994 Constitutional general appearance Evidence of Distress: anxious 05/02/2016 None Full Exam - General 1994 Ears/Nose/Throat oral cavity/pharynx/larynx Oropharynx: erythema 05/02/2016 None Full Exam - General 1994 Respiratory auscultation Lower lung field: crackles 05/02/2016 None Full Exam - General 1994 Psychiatric mood and affect Mood: anxious 05/02/2016 None Full Exam - General 1994 Constitutional general appearance Development: well developed 04/11/2016 None Full Exam - General 1994 Constitutional general appearance Development: appears stated age 1004/11/2016 None Full Exam - General 1994 Constitutional general appearance Hygiene/Attention to Grooming: good hygiene 04/11/2016 None Full Exam - General 1994 Eyes conjunctiva /eyelids Overall: conjunctiva clear 04/11/2016 None Full Exam - General 1994 Eyes conjunctiva /eyelids Overall: cornea clear 04/11/2016 None Full Exam - General 1994 Eyes conjunctiva /eyelids Overall: eyelids normal 04/11/2016 None Full Exam - General 1994 Eyes pupils and irises Overall: pupils equal, round, reactive to light and accomodation 04/11/2016 None Full Exam - General 1994 Ears/Nose/Throat otoscopic exam Overall: external auditory canals clear 04/11/2016 None Full Exam - General 1994 Ears/Nose/Throat otoscopic exam Overall: tympanic membranes clear 04/11/2016 None Full Exam - General 1994 Ears/Nose/Throat lips/teeth/gingiva Overall: benign lips 04/11/2016 None Full Exam - General 1994 Ears/Nose/Throat lips/teeth/gingiva Overall: normal dentition 04/11/2016 None Full Exam - General 1994 Ears/Nose/Throat oral cavity/pharynx/larynx Overall: oral mucosa clear 04/11/2016 None Full Exam - General 1994 Ears/Nose/Throat oral cavity/pharynx/larynx Overall: oropharyngeal mucosa clear 04/11/2016 None Full Exam - General 1994 Ears/Nose/Throat oral cavity/pharynx/larynx Overall: hypopharynx benign 04/11/2016 None Full Exam - General 1994 Ears/Nose/Throat oral cavity/pharynx/larynx Overall: no masses 04/11/2016 None Full Exam - General 1994 Respiratory auscultation Overall: breath sounds clear bilaterally 04/11/2016 None Full Exam - General 1994 Respiratory respiratory effort/rhythm Overall: no retractions 04/11/2016 None Full Exam - General 1994 Respiratory respiratory effort/rhythm Overall: normal rate 04/11/2016 None Full Exam - General 1994 Cardiovascular extremities Overall: no clubbing 04/11/2016 None Full Exam - General 1994 Cardiovascular auscultation of heart Overall: regular rate 04/11/2016 None Full Exam - General 1994 Cardiovascular auscultation of heart Overall: normal heart sounds 04/11/2016 None Full Exam - General 1994 Abdomen abdominal exam Overall: no tenderness 04/11/2016 None Full Exam - General 1994 Abdomen abdominal exam Overall: normal bowel sounds 04/11/2016 None Full Exam - General 1994 Musculoskeletal head and neck Overall: cervical spine benign 04/11/2016 None Full Exam - General 1994 Neurologic deep tendon reflexes Overall: deep tendon reflexes intact 04/11/2016 None Full Exam - General 1994 Neurologic cranial nerves Overall: crainial nerves 2 - 12 grossly intact 04/11/2016 None Full Exam - General 1994 Psychiatric orientation/consciousness Overall: oriented to person, place and time 04/11/2016 None Full Exam - General 1994 Psychiatric mood and affect Overall: normal mood and affect 04/11/2016 None Full Exam - General 1994 Constitutional general appearance Hygiene/Attention to Grooming: good hygiene 02/17/2016 None Full Exam - General 1994 Eyes conjunctiva /eyelids Overall: conjunctiva clear 02/17/2016 None Full Exam - General 1994 Eyes conjunctiva /eyelids Overall: cornea clear 02/17/2016 None Full Exam - General 1994 Eyes conjunctiva /eyelids Overall: eyelids normal 02/17/2016 None Full Exam - General 1994 Eyes pupils and irises Overall: pupils equal, round, reactive to light and accomodation 02/17/2016 None Full Exam - General 1994 Ears/Nose/Throat lips/teeth/gingiva Overall: benign lips 02/17/2016 None Full Exam - General 1994 Ears/Nose/Throat lips/teeth/gingiva Overall: normal dentition 02/17/2016 None Full Exam - General 1994 Ears/Nose/Throat oral cavity/pharynx/larynx Overall: oral mucosa clear 02/17/2016 None Full Exam - General 1994 Respiratory auscultation Overall: breath sounds clear bilaterally 02/17/2016 None Full Exam - General 1994 Respiratory respiratory effort/rhythm Overall: no retractions 02/17/2016 None Full Exam - General 1994 Respiratory respiratory effort/rhythm Overall: normal rate 02/17/2016 None Full Exam - General 1994 Cardiovascular extremities Overall: no clubbing 02/17/2016 None Full Exam - General 1994 Cardiovascular auscultation of heart Overall: regular rate 02/17/2016 None Full Exam - General 1994 Cardiovascular auscultation of heart Overall: normal heart sounds 02/17/2016 None Full Exam - General 1994 Neurologic cranial nerves Overall: crainial nerves 2 - 12 grossly intact 02/17/2016 None Full Exam - General 1994 Psychiatric orientation/consciousness Overall: oriented to person, place and time 02/17/2016 None Full Exam - General 1994 Psychiatric mood and affect Overall: normal mood and affect 02/17/2016 None Full Exam - General 1994 Constitutional general appearance Overall: well developed 02/17/2016 None Full Exam - General 1994 Constitutional general appearance Overall: in no acute distress 02/17/2016 None Full Exam - General 1994 Constitutional general appearance Overall: well nourished 02/17/2016 None Full Exam - General 1994 Ears/Nose/Throat oral cavity/pharynx/larynx Posterior Pharynx: clear post nasal drainage 02/17/2016 None Full Exam - General 1994 Musculoskeletal head and neck Overall: head atraumatic 02/17/2016 None Full Exam - General 1994 Integument inspection of skin Location: chest 02/17/2016 small healing incision - [address], sutures removed, well approximated, no erythema, edema, or warmth noted Full Exam - General 1994 Psychiatric appearance Overall: well-groomed, good eye contact 02/17/2016 None Full Exam - General 1994 Psychiatric speech Overall: normal quality, no aphasia 02/17/2016 None Full Exam - General 1994 Psychiatric speech Overall: normal quality, quantity, rate 02/17/2016 None Full Exam - General 1994 Constitutional general appearance Overall: well nourished 02/08/2016 None Full Exam - General 1994 Constitutional general appearance Overall: well developed 02/08/2016 None Full Exam - General 1994 Constitutional general appearance Overall: in no acute distress 02/08/2016 None Full Exam - General 1994 Respiratory respiratory effort/rhythm Overall: normal rate 02/08/2016 None Full Exam - General 1994 Respiratory respiratory effort/rhythm Overall: no retractions 02/08/2016 None Full Exam - General 1994 Cardiovascular auscultation of heart Overall: regular rate 02/08/2016 None Full Exam - General 1994 Cardiovascular auscultation of heart Overall: normal heart sounds 02/08/2016 None Full Exam - General 1994 Cardiovascular auscultation of heart Overall: no murmurs 02/08/2016 None Full Exam - General 1994 Psychiatric orientation/consciousness Overall: oriented to person, place and time 02/08/2016 None Full Exam - General 1994 Psychiatric mood and affect Mood: happy 02/08/2016 None Full Exam - General 1994 Psychiatric mood and affect Overall: normal mood and affect 02/08/2016 None Full Exam - General 1994 Integument inspection of skin Location: chest 02/08/2016 upper chest on right - 8mm punch biopsy - lesion infiltrated with lidocaine, cleansed with iodine and punch biopsy used to remove lesion - sutures x 3 and dressed with neosporin and 4 x 4 Full Exam - General 1994 Respiratory auscultation Lower lung field: diminished 02/08/2016 None Full Exam - General 1994 Respiratory auscultation Lower lung field: crackles 02/08/2016 None Full Exam - General 1994 Constitutional general appearance Development: well developed 01/26/2016 None Full Exam - General 1994 Constitutional general appearance Development: appears stated age 0801/26/2016 None Full Exam - General 1994 Constitutional general appearance Hygiene/Attention to Grooming: good hygiene 01/26/2016 None Full Exam - General 1994 Eyes conjunctiva /eyelids Overall: conjunctiva clear 01/26/2016 None Full Exam - General 1994 Eyes conjunctiva /eyelids Overall: cornea clear 01/26/2016 None Full Exam - General 1994 Eyes conjunctiva /eyelids Overall: eyelids normal 01/26/2016 None Full Exam - General 1994 Eyes pupils and irises Overall: pupils equal, round, reactive to light and accomodation 01/26/2016 None Full Exam - General 1994 Ears/Nose/Throat otoscopic exam Overall: external auditory canals clear 01/26/2016 None Full Exam - General 1994 Ears/Nose/Throat otoscopic exam Overall: tympanic membranes clear 01/26/2016 None Full Exam - General 1994 Ears/Nose/Throat lips/teeth/gingiva Overall: benign lips 01/26/2016 None Full Exam - General 1994 Ears/Nose/Throat lips/teeth/gingiva Overall: normal dentition 01/26/2016 None Full Exam - General 1994 Ears/Nose/Throat oral cavity/pharynx/larynx Overall: oral mucosa clear 01/26/2016 None Full Exam - General 1994 Ears/Nose/Throat oral cavity/pharynx/larynx Overall: oropharyngeal mucosa clear 01/26/2016 None Full Exam - General 1994 Ears/Nose/Throat oral cavity/pharynx/larynx Overall: hypopharynx benign 01/26/2016 None Full Exam - General 1994 Ears/Nose/Throat oral cavity/pharynx/larynx Overall: no masses 01/26/2016 None Full Exam - General 1994 Respiratory auscultation Overall: breath sounds clear bilaterally 01/26/2016 None Full Exam - General 1994 Respiratory respiratory effort/rhythm Overall: no retractions 01/26/2016 None Full Exam - General 1994 Respiratory respiratory effort/rhythm Overall: normal rate 01/26/2016 None Full Exam - General 1994 Cardiovascular extremities Overall: no clubbing 01/26/2016 None Full Exam - General 1994 Cardiovascular auscultation of heart Overall: regular rate 01/26/2016 None Full Exam - General 1994 Cardiovascular auscultation of heart Overall: normal heart sounds 01/26/2016 None Full Exam - General 1994 Abdomen abdominal exam Overall: no tenderness 01/26/2016 None Full Exam - General 1994 Abdomen abdominal exam Overall: normal bowel sounds 01/26/2016 None Full Exam - General 1994 Musculoskeletal head and neck Overall: cervical spine benign 01/26/2016 None Full Exam - General 1994 Neurologic deep tendon reflexes Overall: deep tendon reflexes intact 01/26/2016 None Full Exam - General 1994 Neurologic cranial nerves Overall: crainial nerves 2 - 12 grossly intact 01/26/2016 None Full Exam - General 1994 Psychiatric orientation/consciousness Overall: oriented to person, place and time 01/26/2016 None Full Exam - General 1994 Psychiatric mood and affect Overall: normal mood and affect 01/26/2016 None Full Exam - General 1994 Constitutional general appearance Development: well developed 01/08/2016 None Full Exam - General 1994 Constitutional general appearance Development: appears stated age 0701/08/2016 None Full Exam - General 1994 Constitutional general appearance Hygiene/Attention to Grooming: good hygiene 01/08/2016 None Full Exam - General 1994 Eyes conjunctiva /eyelids Overall: conjunctiva clear 01/08/2016 None Full Exam - General 1994 Eyes conjunctiva /eyelids Overall: cornea clear 01/08/2016 None Full Exam - General 1994 Eyes conjunctiva /eyelids Overall: eyelids normal 01/08/2016 None Full Exam - General 1994 Eyes pupils and irises Overall: pupils equal, round, reactive to light and accomodation 01/08/2016 None Full Exam - General 1994 Ears/Nose/Throat lips/teeth/gingiva Overall: benign lips 01/08/2016 None Full Exam - General 1994 Ears/Nose/Throat lips/teeth/gingiva Overall: normal dentition 01/08/2016 None Full Exam - General 1994 Respiratory auscultation Overall: breath sounds clear bilaterally 01/08/2016 None Full Exam - General 1994 Respiratory respiratory effort/rhythm Overall: no retractions 01/08/2016 None Full Exam - General 1994 Respiratory respiratory effort/rhythm Overall: normal rate 01/08/2016 None Full Exam - General 1994 Cardiovascular extremities Overall: no clubbing 01/08/2016 None Full Exam - General 1994 Cardiovascular auscultation of heart Overall: regular rate 01/08/2016 None Full Exam - General 1994 Cardiovascular auscultation of heart Overall: normal heart sounds 01/08/2016 None Full Exam - General 1994 Neurologic cranial nerves Overall: crainial nerves 2 - 12 grossly intact 01/08/2016 None Full Exam - General 1994 Psychiatric orientation/consciousness Overall: oriented to person, place and time 01/08/2016 None Full Exam - General 1994 Psychiatric mood and affect Overall: normal mood and affect 01/08/2016 None Full Exam - General 1994 Abdomen abdominal exam Overall: normal bowel sounds 01/08/2016 None Full Exam - General 1994 Abdomen abdominal exam Overall: no tenderness 01/08/2016 None Full Exam - General 1994 Musculoskeletal gait and station Overall: normal gait 01/08/2016 None Full Exam - General 1994 Musculoskeletal gait and station Overall: normal station 01/08/2016 None Full Exam - General 1994 Psychiatric appearance Overall: well-groomed, good eye contact 01/08/2016 None Full Exam - General 1994 Constitutional general appearance Development: well developed 01/01/2016 None Full Exam - General 1994 Constitutional general appearance Development: appears stated age 0701/01/2016 None Full Exam - General 1994 Constitutional general appearance Hygiene/Attention to Grooming: good hygiene 01/01/2016 None Full Exam - General 1994 Eyes conjunctiva /eyelids Overall: conjunctiva clear 01/01/2016 None Full Exam - General 1994 Eyes conjunctiva /eyelids Overall: cornea clear 01/01/2016 None Full Exam - General 1994 Eyes conjunctiva /eyelids Overall: eyelids normal 01/01/2016 None Full Exam - General 1994 Ears/Nose/Throat otoscopic exam Overall: external auditory canals clear 01/01/2016 None Full Exam - General 1994 Ears/Nose/Throat otoscopic exam Tympanic membrane: air- fluid level 01/01/2016 None Full Exam - General 1994 Ears/Nose/Throat lips/teeth/gingiva Overall: benign lips 01/01/2016 None Full Exam - General 1994 Ears/Nose/Throat lips/teeth/gingiva Overall: normal dentition 01/01/2016 None Full Exam - General 1994 Ears/Nose/Throat oral cavity/pharynx/larynx Overall: oral mucosa clear 01/01/2016 None Full Exam - General 1994 Ears/Nose/Throat oral cavity/pharynx/larynx Posterior Pharynx: clear post nasal drainage 01/01/2016 None Full Exam - General 1994 Ears/Nose/Throat oral cavity/pharynx/larynx Oropharynx: erythema 01/01/2016 None Full Exam - General 1994 Respiratory auscultation Diffuse: diminished 01/01/2016 None Full Exam - General 1994 Respiratory respiratory effort/rhythm Overall: no retractions 01/01/2016 None Full Exam - General 1994 Respiratory respiratory effort/rhythm Overall: normal rate 01/01/2016 None Full Exam - General 1994 Cardiovascular extremities Overall: no clubbing 01/01/2016 None Full Exam - General 1994 Cardiovascular auscultation of heart Overall: regular rate 01/01/2016 None Full Exam - General 1994 Cardiovascular auscultation of heart Overall: normal heart sounds 01/01/2016 None Full Exam - General 1994 Neurologic cranial nerves Overall: crainial nerves 2 - 12 grossly intact 01/01/2016 None Full Exam - General 1994 Psychiatric orientation/consciousness Overall: oriented to person, place and time 01/01/2016 None Full Exam - General 1994 Psychiatric mood and affect Overall: normal mood and affect 01/01/2016 None Full Exam - General 1994 Respiratory auscultation Right lower lung field: crackles 01/01/2016 None Full Exam - General 1994 Constitutional general appearance Development: well developed 12/29/2015 None Full Exam - General 1994 Constitutional general appearance Development: appears stated age 0712/29/2015 None Full Exam - General 1994 Constitutional general appearance Hygiene/Attention to Grooming: good hygiene 12/29/2015 None Full Exam - General 1994 Eyes conjunctiva /eyelids Overall: conjunctiva clear 12/29/2015 None Full Exam - General 1994 Eyes conjunctiva /eyelids Overall: cornea clear 12/29/2015 None Full Exam - General 1994 Eyes conjunctiva /eyelids Overall: eyelids normal 12/29/2015 None Full Exam - General 1994 Ears/Nose/Throat otoscopic exam Overall: external auditory canals clear 12/29/2015 None Full Exam - General 1994 Ears/Nose/Throat lips/teeth/gingiva Overall: benign lips 12/29/2015 None Full Exam - General 1994 Ears/Nose/Throat lips/teeth/gingiva Overall: normal dentition 12/29/2015 None Full Exam - General 1994 Ears/Nose/Throat oral cavity/pharynx/larynx Overall: oral mucosa clear 12/29/2015 None Full Exam - General 1994 Respiratory respiratory effort/rhythm Overall: no retractions 12/29/2015 None Full Exam - General 1994 Respiratory respiratory effort/rhythm Overall: normal rate 12/29/2015 None Full Exam - General 1994 Cardiovascular extremities Overall: no clubbing 12/29/2015 None Full Exam - General 1994 Cardiovascular auscultation of heart Overall: regular rate 12/29/2015 None Full Exam - General 1994 Cardiovascular auscultation of heart Overall: normal heart sounds 12/29/2015 None Full Exam - General 1994 Neurologic cranial nerves Overall: crainial nerves 2 - 12 grossly intact 12/29/2015 None Full Exam - General 1994 Psychiatric orientation/consciousness Overall: oriented to person, place and time 12/29/2015 None Full Exam - General 1994 Psychiatric mood and affect Overall: normal mood and affect 12/29/2015 None Full Exam - General 1994 Ears/Nose/Throat otoscopic exam Tympanic membrane: air- fluid level 12/29/2015 None Full Exam - General 1994 Ears/Nose/Throat oral cavity/pharynx/larynx Posterior Pharynx: clear post nasal drainage 12/29/2015 None Full Exam - General 1994 Ears/Nose/Throat oral cavity/pharynx/larynx Oropharynx: erythema 12/29/2015 None Full Exam - General 1994 Respiratory auscultation Diffuse: diminished 12/29/2015 None Full Exam - General 1994 Respiratory auscultation Overall: breath sounds clear bilaterally 12/29/2015 None Full Exam - General 1994 Constitutional general appearance Development: well developed 07/27/2015 None Full Exam - General 1994 Constitutional general appearance Development: appears stated age 0207/27/2015 None Full Exam - General 1994 Constitutional general appearance Hygiene/Attention to Grooming: good hygiene 07/27/2015 None Full Exam - General 1994 Eyes conjunctiva /eyelids Overall: conjunctiva clear 07/27/2015 None Full Exam - General 1994 Eyes conjunctiva /eyelids Overall: cornea clear 07/27/2015 None Full Exam - General 1994 Eyes conjunctiva /eyelids Overall: eyelids normal 07/27/2015 None Full Exam - General 1994 Eyes pupils and irises Overall: pupils equal, round, reactive to light and accomodation 07/27/2015 None Full Exam - General 1994 Ears/Nose/Throat otoscopic exam Overall: external auditory canals clear 07/27/2015 None Full Exam - General 1994 Ears/Nose/Throat otoscopic exam Overall: tympanic membranes clear 07/27/2015 None Full Exam - General 1994 Ears/Nose/Throat lips/teeth/gingiva Overall: benign lips 07/27/2015 None Full Exam - General 1994 Ears/Nose/Throat lips/teeth/gingiva Overall: normal dentition 07/27/2015 None Full Exam - General 1994 Ears/Nose/Throat oral cavity/pharynx/larynx Overall: oral mucosa clear 07/27/2015 None Full Exam - General 1994 Ears/Nose/Throat oral cavity/pharynx/larynx Overall: oropharyngeal mucosa clear 07/27/2015 None Full Exam - General 1994 Ears/Nose/Throat oral cavity/pharynx/larynx Overall: hypopharynx benign 07/27/2015 None Full Exam - General 1994 Ears/Nose/Throat oral cavity/pharynx/larynx Overall: no masses 07/27/2015 None Full Exam - General 1994 Respiratory auscultation Overall: breath sounds clear bilaterally 07/27/2015 None Full Exam - General 1994 Respiratory respiratory effort/rhythm Overall: no retractions 07/27/2015 None Full Exam - General 1994 Respiratory respiratory effort/rhythm Overall: normal rate 07/27/2015 None Full Exam - General 1994 Cardiovascular extremities Overall: no clubbing 07/27/2015 None Full Exam - General 1994 Cardiovascular auscultation of heart Overall: regular rate 07/27/2015 None Full Exam - General 1994 Cardiovascular auscultation of heart Overall: normal heart sounds 07/27/2015 None Full Exam - General 1994 Abdomen abdominal exam Overall: no tenderness 07/27/2015 None Full Exam - General 1994 Abdomen abdominal exam Overall: normal bowel sounds 07/27/2015 None Full Exam - General 1994 Musculoskeletal head and neck Overall: cervical spine benign 07/27/2015 None Full Exam - General 1994 Neurologic cranial nerves Overall: crainial nerves 2 - 12 grossly intact 07/27/2015 None Full Exam - General 1994 Psychiatric orientation/consciousness Overall: oriented to person, place and time 07/27/2015 None Full Exam - General 1994 Psychiatric mood and affect Overall: normal mood and affect 07/27/2015 None Full Exam - General 1994 Cardiovascular extremities Edema present: non-pitting 07/27/2015 None Full Exam - General 1994 Cardiovascular extremities Edema present: severity 1+ - 4 +: trace 07/27/2015 None Full Exam - General 1994 Cardiovascular extremities Edema present: bilateral 07/27/2015 None Full Exam - General 1994 Constitutional general appearance Development: well developed 07/16/2015 None Full Exam - General 1994 Constitutional general appearance Development: appears stated age 0207/16/2015 None Full Exam - General 1994 Constitutional general appearance Hygiene/Attention to Grooming: good hygiene 07/16/2015 None Full Exam - General 1994 Eyes conjunctiva /eyelids Overall: conjunctiva clear 07/16/2015 None Full Exam - General 1994 Eyes conjunctiva /eyelids Overall: cornea clear 07/16/2015 None Full Exam - General 1994 Eyes conjunctiva /eyelids Overall: eyelids normal 07/16/2015 None Full Exam - General 1994 Eyes pupils and irises Overall: pupils equal, round, reactive to light and accomodation 07/16/2015 None Full Exam - General 1994 Ears/Nose/Throat otoscopic exam Overall: external auditory canals clear 07/16/2015 None Full Exam - General 1994 Ears/Nose/Throat otoscopic exam Overall: tympanic membranes clear 07/16/2015 None Full Exam - General 1994 Ears/Nose/Throat lips/teeth/gingiva Overall: benign lips 07/16/2015 None Full Exam - General 1994 Ears/Nose/Throat lips/teeth/gingiva Overall: normal dentition 07/16/2015 None Full Exam - General 1994 Ears/Nose/Throat oral cavity/pharynx/larynx Overall: oral mucosa clear 07/16/2015 None Full Exam - General 1994 Ears/Nose/Throat oral cavity/pharynx/larynx Overall: oropharyngeal mucosa clear 07/16/2015 None Full Exam - General 1994 Ears/Nose/Throat oral cavity/pharynx/larynx Overall: hypopharynx benign 07/16/2015 None Full Exam - General 1994 Ears/Nose/Throat oral cavity/pharynx/larynx Overall: no masses 07/16/2015 None Full Exam - General 1994 Respiratory respiratory effort/rhythm Overall: no retractions 07/16/2015 None Full Exam - General 1994 Respiratory respiratory effort/rhythm Overall: normal rate 07/16/2015 None Full Exam - General 1994 Cardiovascular extremities Overall: no clubbing 07/16/2015 None Full Exam - General 1994 Cardiovascular auscultation of heart Overall: regular rate 07/16/2015 None Full Exam - General 1994 Cardiovascular auscultation of heart Overall: normal heart sounds 07/16/2015 None Full Exam - General 1994 Abdomen abdominal exam Overall: no tenderness 07/16/2015 None Full Exam - General 1994 Abdomen abdominal exam Overall: normal bowel sounds 07/16/2015 None Full Exam - General 1994 Musculoskeletal head and neck Overall: cervical spine benign 07/16/2015 None Full Exam - General 1994 Neurologic deep tendon reflexes Overall: deep tendon reflexes intact 07/16/2015 None Full Exam - General 1994 Neurologic cranial nerves Overall: crainial nerves 2 - 12 grossly intact 07/16/2015 None Full Exam - General 1994 Psychiatric orientation/consciousness Overall: oriented to person, place and time 07/16/2015 None Full Exam - General 1994 Psychiatric mood and affect Overall: normal mood and affect 07/16/2015 None Full Exam - General 1994 Respiratory auscultation Right lower lung field: crackles 07/16/2015 None Full Exam - General 1994 Respiratory auscultation Lower lung field: crackles 07/16/2015 None Full Exam - General 1994 Constitutional general appearance Development: well developed 03/16/2015 None Full Exam - General 1994 Constitutional general appearance Development: appears stated age 1003/16/2015 None Full Exam - General 1994 Constitutional general appearance Hygiene/Attention to Grooming: good hygiene 03/16/2015 None Full Exam - General 1994 Eyes conjunctiva /eyelids Overall: conjunctiva clear 03/16/2015 None Full Exam - General 1994 Eyes conjunctiva /eyelids Overall: cornea clear 03/16/2015 None Full Exam - General 1994 Eyes conjunctiva /eyelids Overall: eyelids normal 03/16/2015 None Full Exam - General 1994 Eyes pupils and irises Overall: pupils equal, round, reactive to light and accomodation 03/16/2015 None Full Exam - General 1994 Ears/Nose/Throat otoscopic exam Overall: external auditory canals clear 03/16/2015 None Full Exam - General 1994 Ears/Nose/Throat otoscopic exam Overall: tympanic membranes clear 03/16/2015 None Full Exam - General 1994 Ears/Nose/Throat lips/teeth/gingiva Overall: benign lips 03/16/2015 None Full Exam - General 1994 Ears/Nose/Throat lips/teeth/gingiva Overall: normal dentition 03/16/2015 None Full Exam - General 1994 Ears/Nose/Throat oral cavity/pharynx/larynx Overall: oral mucosa clear 03/16/2015 None Full Exam - General 1994 Ears/Nose/Throat oral cavity/pharynx/larynx Overall: oropharyngeal mucosa clear 03/16/2015 None Full Exam - General 1994 Ears/Nose/Throat oral cavity/pharynx/larynx Overall: hypopharynx benign 03/16/2015 None Full Exam - General 1994 Ears/Nose/Throat oral cavity/pharynx/larynx Overall: no masses 03/16/2015 None Full Exam - General 1994 Respiratory auscultation Overall: breath sounds clear bilaterally 03/16/2015 None Full Exam - General 1994 Respiratory respiratory effort/rhythm Overall: no retractions 03/16/2015 None Full Exam - General 1994 Respiratory respiratory effort/rhythm Overall: normal rate 03/16/2015 None Full Exam - General 1994 Cardiovascular extremities Overall: no clubbing 03/16/2015 None Full Exam - General 1994 Cardiovascular auscultation of heart Overall: regular rate 03/16/2015 None Full Exam - General 1994 Cardiovascular auscultation of heart Overall: normal heart sounds 03/16/2015 None Full Exam - General 1994 Abdomen abdominal exam Overall: no tenderness 03/16/2015 None Full Exam - General 1994 Abdomen abdominal exam Overall: normal bowel sounds 03/16/2015 None Full Exam - General 1994 Musculoskeletal head and neck Overall: cervical spine benign 03/16/2015 None Full Exam - General 1994 Neurologic deep tendon reflexes Overall: deep tendon reflexes intact 03/16/2015 None Full Exam - General 1994 Neurologic cranial nerves Overall: crainial nerves 2 - 12 grossly intact 03/16/2015 None Full Exam - General 1994 Psychiatric orientation/consciousness Overall: oriented to person, place and time 03/16/2015 None Full Exam - General 1994 Psychiatric mood and affect Overall: normal mood and affect 03/16/2015 None Full Exam - General 1994 Constitutional general appearance Development: well developed 12/15/2014 None Full Exam - General 1994 Constitutional general appearance Development: appears stated age 0712/15/2014 None Full Exam - General 1994 Constitutional general appearance Hygiene/Attention to Grooming: good hygiene 12/15/2014 None Full Exam - General 1994 Eyes conjunctiva /eyelids Overall: conjunctiva clear 12/15/2014 None Full Exam - General 1994 Eyes conjunctiva /eyelids Overall: cornea clear 12/15/2014 None Full Exam - General 1994 Eyes conjunctiva /eyelids Overall: eyelids normal 12/15/2014 None Full Exam - General 1994 Eyes pupils and irises Overall: pupils equal, round, reactive to light and accomodation 12/15/2014 None Full Exam - General 1994 Ears/Nose/Throat otoscopic exam Overall: external auditory canals clear 12/15/2014 None Full Exam - General 1994 Ears/Nose/Throat otoscopic exam Overall: tympanic membranes clear 12/15/2014 None Full Exam - General 1994 Ears/Nose/Throat lips/teeth/gingiva Overall: benign lips 12/15/2014 None Full Exam - General 1994 Ears/Nose/Throat lips/teeth/gingiva Overall: normal dentition 12/15/2014 None Full Exam - General 1994 Ears/Nose/Throat oral cavity/pharynx/larynx Overall: oral mucosa clear 12/15/2014 None Full Exam - General 1994 Ears/Nose/Throat oral cavity/pharynx/larynx Overall: oropharyngeal mucosa clear 12/15/2014 None Full Exam - General 1994 Ears/Nose/Throat oral cavity/pharynx/larynx Overall: hypopharynx benign 12/15/2014 None Full Exam - General 1994 Ears/Nose/Throat oral cavity/pharynx/larynx Overall: no masses 12/15/2014 None Full Exam - General 1994 Respiratory auscultation Overall: breath sounds clear bilaterally 12/15/2014 None Full Exam - General 1994 Respiratory respiratory effort/rhythm Overall: no retractions 12/15/2014 None Full Exam - General 1994 Respiratory respiratory effort/rhythm Overall: normal rate 12/15/2014 None Full Exam - General 1994 Cardiovascular extremities Overall: no clubbing 12/15/2014 None Full Exam - General 1994 Cardiovascular auscultation of heart Overall: regular rate 12/15/2014 None Full Exam - General 1994 Cardiovascular auscultation of heart Overall: normal heart sounds 12/15/2014 None Full Exam - General 1994 Abdomen abdominal exam Overall: no tenderness 12/15/2014 None Full Exam - General 1994 Abdomen abdominal exam Overall: normal bowel sounds 12/15/2014 None Full Exam - General 1994 Lymphatic neck nodes Overall: anterior cervical chain benign 12/15/2014 None Full Exam - General 1994 Lymphatic neck nodes Overall: posterior cervical chain benign 12/15/2014 None Full Exam - General 1994 Musculoskeletal spine, ribs and pelvis Overall: spine benign 12/15/2014 None Full Exam - General 1994 Musculoskeletal spine, ribs and pelvis Overall: sacroiliac joint benign 12/15/2014 None Full Exam - General 1994 Musculoskeletal spine, ribs and pelvis Overall: good posture 12/15/2014 None Full Exam - General 1994 Musculoskeletal head and neck Overall: head atraumatic 12/15/2014 None Full Exam - General 1994 Musculoskeletal head and neck Overall: cervical spine benign 12/15/2014 None Full Exam - General 1994 Integument inspection of skin Overall: few scattered moles, no gross abnormalities 12/15/2014 None Full Exam - General 1994 Neurologic deep tendon reflexes Overall: deep tendon reflexes intact 12/15/2014 None Full Exam - General 1994 Neurologic cranial nerves Overall: crainial nerves 2 - 12 grossly intact 12/15/2014 None Full Exam - General 1994 Psychiatric orientation/consciousness Overall: oriented to person, place and time 12/15/2014 None Full Exam - General 1994 Psychiatric mood and affect Overall: normal mood and affect 12/15/2014 None Procedures Procedure Codes Date PPPS, SUBSEQ VISIT CPT -4: G0439 01/24/2017 THER/PROPH/DIAG INJ SC/IM CPT-4: 64375 08/08/2016 TRIAMCINOLONE ACET INJ NOS CPT-4: J3301 08/08/2016 ROCEPHIN, PER 250 MG CPT-4: J0696 08/08/2016 THER/PROPH/DIAG INJ SC/IM CPT-4: 71159 05/02/2016 ROCEPHIN, PER 250 MG CPT-4: J0696 05/02/2016 BIOPSY SKIN LESION CPT -4: 71274 02/08/2016 URINALYSIS NONAUTO W/O SCOPE CPT-4: 45069 01/08/2016 ROCEPHIN, PER 250 MG CPT-4: J0696 01/01/2016 TRIAMCINOLONE ACET INJ NOS CPT-4: J3301 07/16/2015 ROCEPHIN, PER 250 MG CPT-4: J0696 07/16/2015 Vital Signs Date Vital 07/10/2017 Blood Pressure 1: 146/78 Code : 8480-6 BMI: 40.6 Code : 94451-5 Heart Rate 1 : 67 bpm Height: 5' SpO2: 98% Weight: 208 lbs 02/14/2017 Blood Pressure 1: 150/68 Code : 8480-6 BMI: 40.8 Code : 01505-2 Heart Rate 1 : 68 bpm Height: 5' SpO2: 97% Weight: 209 lbs 01/24/2017 Blood Pressure 1: 138/70 Code : 8480-6 BMI: 41.0 Code : 85608-3 Heart Rate 1 : 72 bpm Height: 5' SpO2: 97% Waist Measure (cm): 91 cm Weight: 210 lbs 01/19/2017 Blood Pressure 1: 140/68 Code : 8480-6 BMI: 41.0 Code : 83832-4 Heart Rate 1 : 70 bpm Height: 5' SpO2: 95% Weight: 210 lbs 08/08/2016 Blood Pressure 1: 142/70 Code : 8480-6 BMI: 40.8 Code : 75315-7 Heart Rate 1 : 64 bpm Height: 5' SpO2: 98% Weight: 209 lbs 05/03/2016 Blood Pressure 1: 148/70 Code : 8480-6 BMI: 41.0 Code : 76209-6 Heart Rate 1 : 99 bpm Height: 5' SpO2: 97% Temperature: 36.8 (C) / 98.2 (F) Weight: 210 lbs 05/02/2016 Blood Pressure 1: 154/74 Code : 8480-6 BMI: 41.0 Code : 38373-8 Heart Rate 1 : 99 bpm Height: 5' SpO2: 97% Temperature: 38.3 (C) / 100.9 (F) Weight: 210 lbs 04/11/2016 Blood Pressure 1: 122/72 Code : 8480-6 BMI: 41.1 Code : 60475-6 Heart Rate 1 : 62 bpm Height: 5' SpO2: 96% Weight: 210 lbs 8 oz 02/17/2016 Blood Pressure 1: 144/88 Code : 8480-6 BMI: 39.6 Code : 88366-3 Heart Rate 1 : 61 bpm Height: 5' SpO2: 95% Weight: 203 lbs 02/08/2016 Blood Pressure 1: 128/58 Code : 8480-6 BMI: 39.6 Code : 50807-2 Heart Rate 1 : 59 bpm Height: 5' SpO2: 95% Weight: 203 lbs 01/26/2016 Blood Pressure 1: 134/66 Code : 8480-6 BMI: 39.8 Code : 41209-9 Heart Rate 1 : 71 bpm Height: 5' SpO2: 98% Weight: 204 lbs 01/08/2016 Blood Pressure 1: 110/60 Code : 8480-6 Heart Rate 1: 70 bpm Height: Weight: 01/01/2016 Blood Pressure 1: 148/64 Code : 8480-6 BMI: 39.5 Code : 96026-0 Heart Rate 1 : 82 bpm Height: 5' SpO2: 93% Weight: 202 lbs 12/29/2015 Blood Pressure 1: 145/70 Code : 8480-6 BMI: 39.5 Code : 37737-9 Heart Rate 1 : 72 bpm Height: 5' SpO2: 96% Weight: 202 lbs 07/27/2015 Blood Pressure 1: 148/64 Code : 8480-6 BMI: 39.1 Code : 62592-3 Heart Rate 1 : 76 bpm Height: 5' SpO2: 97% Weight: 200 lbs 07/16/2015 Blood Pressure 1: 140/76 Code : 8480-6 BMI: 39.5 Code : 83515-3 Heart Rate 1 : 51 bpm Height: 5' SpO2: 91% Temperature: 36.4 (C) / 97.6 (F) Weight: 202 lbs 03/16/2015 Blood Pressure 1: 128/70 Code : 8480-6 BMI: 39.5 Code : 68198-3 Heart Rate 1 : 70 bpm Height: 5' SpO2: 94% Weight: 202 lbs 12/15/2014 Blood Pressure 1: 136/58 Code : 8480-6 BMI: 40.4 Code : 56996-9 Heart Rate 1 : 72 bpm Height: 5' Weight: 207 lbs Functional Status No Functional Status data History of Present Illness Symptom Name Status Result Effective Date Notes hypertension Onset and Resolution ongoing 07/10/2017 None hypertension Onset of Symptom during adulthood 07/10/2017 None hypertension Blood Pressure Values not checking blood pressure at home 07/10/2017 None hypertension Alleviating Factors medication 07/10/2017 None hypertension Pertinent Findings Denies dizziness 07/10/2017 None hypertension Pertinent Findings Denies dyspnea 07/10/2017 None hypertension Pertinent Findings edema 07/10/2017 in bilateral legs/ankles- more so in the left- takes lasix as needed hypertension Quality primary hypertension 07/10/2017 None hypothyroid Quality chronic 07/10/2017 None hypothyroid Onset and Resolution ongoing 07/10/2017 None hypothyroid Alleviating Factors medication 07/10/2017 None hypertension Pertinent Findings decreased energy 07/10/2017 None pain, generalized Location diffusely 07/10/2017 None pain, generalized Location in multiple limbs 07/10/2017 None pain, generalized Quality acute 07/10/2017 None pain, generalized Onset and Resolution ongoing 07/10/2017 None pain, generalized Onset of Symptom approx. 2 months ago 07/10/2017 "this winter" pain, generalized Frequency of Episodes daily 07/10/2017 None pain, generalized Limitation on Activities moderately limits activities 07/10/2017 None pain, generalized Triggers no known associated factors 07/10/2017 None dizziness Quality lightheadedness 02/14/2017 None dizziness Quality loss of balance 02/14/2017 None dizziness Quality sense of motion 02/14/2017 None dizziness Quality sense of room spinning 02/14/2017 None dizziness Onset and Resolution sudden in onset 02/14/2017 None dizziness Onset of Symptom 2 days ago 02/14/2017 None Annual Medicare Wellness Exam Alcohol Use does not drink any alcohol 01/24/2017 None Annual Medicare Wellness Exam Aspirin Use no 01/24/2017 None Annual Medicare Wellness Exam Blood Glucose (self reported) don't know 01/24/2017 None Annual Medicare Wellness Exam Blood Pressure (self reported ) borderline (120/80 - 139/89) 01/24/2017 None Annual Medicare Wellness Exam Cholesterol (self reported) desireable (below 200) 01/24/2017 None Annual Medicare Wellness Exam Depression (last 6 months) almost never 01/24/2017 None Annual Medicare Wellness Exam Depression or Hopelessness almost never 01/24/2017 None Annual Medicare Wellness Exam Describe Your Health good 01/24/2017 None Annual Medicare Wellness Exam Exercise Habits does not exercise 01/24/2017 None Annual Medicare Wellness Exam Handling Stress usually telma effectively 01/24/2017 None Annual Medicare Wellness Exam Hemaglobin A-1C (self reported ) don't know 01/24/2017 None Annual Medicare Wellness Exam Hours of Sleep 7 01/24/2017 None Annual Medicare Wellness Exam Interaction with Friends yes 01/24/2017 None Annual Medicare Wellness Exam Interests & Pleasure daily 01/24/2017 None Annual Medicare Wellness Exam Life Satisfaction satisfied 01/24/2017 None Annual Medicare Wellness Exam Motor Vehicle Safety always fastens seat belt: y 01/24/2017 None Annual Medicare Wellness Exam Motor Vehicle Safety drives after drinking: n 01/24/2017 None Annual Medicare Wellness Exam Motor Vehicle Safety rides with someone who has been drinking: n 2016 None Annual Medicare Wellness Exam Nutrition servings of fried food / high fat foods per day: 1 2016 None Annual Medicare Wellness Exam Nutrition servings of high fiber / whole grain per day: 2 01/24/2017 None Annual Medicare Wellness Exam Nutrition servings of vegetables / fruit per day: 2 01/24/2017 None Annual Medicare Wellness Exam Smoking and Tobacco Use non smoker 01/24/2017 None Annual Medicare Wellness Exam Social & Emotional Support always 01/24/2017 None Annual Medicare Wellness Exam Stress some of the time 01/24/2017 None Annual Medicare Wellness Exam Sun Exposure protects skin when outdoors: y 01/24/2017 None edema Onset and Resolution ongoing 01/19/2017 None edema Alleviating Factors rest 01/19/2017 None edema Alleviating Factors medication 01/19/2017 (lasix) edema Exacerbating Factors activity 01/19/2017 None edema Location on both ankles 01/19/2017 -worse in the left hypertension Onset and Resolution ongoing 01/19/2017 None hypertension Onset of Symptom during adulthood 01/19/2017 None hypertension Blood Pressure Values not checking blood pressure at home 01/19/2017 None hypertension Alleviating Factors medication 01/19/2017 None hypertension Pertinent Findings Denies dizziness 01/19/2017 None hypertension Pertinent Findings Denies dyspnea 01/19/2017 only with exertion hypertension Pertinent Findings edema 01/19/2017 in bilateral legs/ankles- more so in the left edema Pertinent Findings Denies dyspnea 01/19/2017 None edema Pertinent Findings Denies palpitations 01/19/2017 None hypothyroid Onset and Resolution ongoing 08/08/2016 None hypothyroid Alleviating Factors medication 08/08/2016 None edema Onset and Resolution ongoing 08/08/2016 None edema Alleviating Factors rest 08/08/2016 None edema Alleviating Factors medication 08/08/2016 (lasix) edema Exacerbating Factors activity 08/08/2016 None edema Location on both ankles 08/08/2016 -worse in the left hypertension Onset and Resolution ongoing 08/08/2016 None hypertension Onset of Symptom during adulthood 08/08/2016 None hypertension Blood Pressure Values not checking blood pressure at home 08/08/2016 None hypertension Alleviating Factors medication 08/08/2016 None hypertension Pertinent Findings Denies dizziness 08/08/2016 None hypertension Pertinent Findings dyspnea 08/08/2016 only with exertion hypertension Pertinent Findings edema 08/08/2016 in bilateral legs/ankles- more so in the left mole check Location-Major on the back 08/08/2016 None mole check Location-Trunk on the left side of the back 08/08/2016 None mole check Location-Head/Neck on the forehead 08/08/2016 None headache Location diffusely 05/03/2016 None headache Quality constant 05/03/2016 None headache Quality aching 05/03/2016 None headache Onset and Resolution sudden in onset 05/03/2016 None headache Onset of Symptom 2 days ago 05/03/2016 None headache Frequency of Episodes daily 05/03/2016 None fever Quality constant 05/02/2016 None fever Onset and Resolution sudden in onset 05/02/2016 None fever Onset of Symptom 1 days ago 05/02/2016 None fever Temperature 101 degrees 05/02/2016 None fever Frequency of Episodes daily 05/02/2016 None sore throat Location on both sides 05/02/2016 None sore throat Quality constant 05/02/2016 None sore throat Quality scratchy 05/02/2016 None sore throat Onset and Resolution sudden in onset 05/02/2016 None sore throat Onset of Symptom 1 days ago 05/02/2016 None sore throat Frequency of Episodes daily 05/02/2016 None hypothyroid Onset and Resolution ongoing 04/11/2016 None hypothyroid Alleviating Factors medication 04/11/2016 None cough Quality dry None cough Quality hacking 04/11/2016 None cough Quality intermittent 04/11/2016 None cough Onset and Resolution ongoing 04/11/2016 None cough Pertinent Findings Denies chills 04/11/2016 None cough Pertinent Findings Denies fever 04/11/2016 None cough Pertinent Findings lethargy 04/11/2016 -improved cough Pertinent Findings Denies purulent sputum 04/11/2016 None edema Onset and Resolution ongoing 04/11/2016 None edema Alleviating Factors rest 04/11/2016 None edema Alleviating Factors medication 04/11/2016 (lasix) edema Exacerbating Factors activity 04/11/2016 None edema Location on both ankles 04/11/2016 -worse in the left edema Quality acute None wound follow up Date of procedure 201502/17/2016 None wound follow up Procedure Performed an excision of skin lesion 02/17/2016 None wound follow up General Recovery well 02/17/2016 None wound follow up Additional Comments The patient is doing well. 02/17/2016 None wound follow up Additional Comments Patient followed pre/post op instructions 02/17/2016 None wound follow up Pertinent Findings Denies fever 02/17/2016 None wound follow up Pertinent Findings Denies pain 02/17/2016 None wound follow up Pertinent Findings Denies redness around the incision site 02/17/2016 None wound follow up Pertinent Findings Denies excess swelling 02/17/2016 None wound follow up Pertinent Findings Denies hematoma 02/17/2016 None mole check Location-Major on the chest 02/08/2016 None mole check Location-Trunk on the upper chest 02/08/2016 None mole check Location-Trunk on the mid chest 02/08/2016 None mole check Color flesh-colored 02/08/2016 None fatigue Onset and Resolution ongoing 02/08/2016 None fatigue Pertinent Findings cough 02/08/2016 None fatigue Pertinent Findings dyspnea 02/08/2016 None cough Quality acute None cough Quality intermittent 02/08/2016 None cough Onset and Resolution ongoing 02/08/2016 None cough Onset of Symptom 1 months ago 02/08/2016 None cough Pertinent Findings dyspnea 02/08/2016 None cough Pertinent Findings chest discomfort 02/08/2016 None edema Onset and Resolution ongoing 01/26/2016 None edema Alleviating Factors medication 01/26/2016 (lasix) edema Alleviating Factors rest 01/26/2016 None edema Exacerbating Factors activity 01/26/2016 None edema Location on both ankles 01/26/2016 -worse in the left hypothyroid Onset and Resolution ongoing 01/26/2016 None hypothyroid Alleviating Factors medication 01/26/2016 None fatigue Onset and Resolution ongoing 01/26/2016 None cough Quality dry None cough Quality intermittent 01/26/2016 None cough Quality hacking 01/26/2016 None cough Onset and Resolution ongoing 01/26/2016 None cough Pertinent Findings Denies chills 01/26/2016 None cough Pertinent Findings Denies fever 01/26/2016 None cough Pertinent Findings Denies purulent sputum 01/26/2016 None cough Pertinent Findings lethargy 01/26/2016 None muscle weakness Onset and Resolution gradual in onset 01/26/2016 None muscle weakness Quality upper extremities 01/26/2016 None muscle weakness Quality lower extremities 01/26/2016 None muscle weakness Quality both sides 01/26/2016 None hair loss Quality acute 01/26/2016 None hair loss Location on the scalp 01/26/2016 None hair loss Onset and Resolution ongoing 01/26/2016 None hair loss Onset of Symptom 2 months ago 01/26/2016 None mole check Location-Major on the chest 01/26/2016 None mole check Location-Trunk on the right mid chest 01/26/2016 None mole check Quality new 01/26/2016 None mole check Quality pruritic 01/26/2016 None mole check Color flesh-colored 01/26/2016 None malaise Quality acute 01/08/2016 None malaise Quality worsening 01/08/2016 None malaise Onset and Resolution ongoing 01/08/2016 None malaise Onset of Symptom 1-2 weeks ago 01/08/2016 None malaise Limitation on Activities moderately limits activities 01/08/2016 None malaise Triggers activity 01/08/2016 None malaise Triggers stress 01/08/2016 None malaise Pertinent Findings Denies chills 01/08/2016 None malaise Pertinent Findings cough 01/08/2016 improving malaise Pertinent Findings Denies dyspnea 01/08/2016 None malaise Pertinent Findings Denies fever 01/08/2016 None malaise Pertinent Findings Denies melena 01/08/2016 None diarrhea Quality loose 01/08/2016 None diarrhea Pertinent Findings Denies fever 01/08/2016 None sinus congestion Onset and Resolution sudden in onset 01/01/2016 None sinus congestion Frequency of Episodes daily 01/01/2016 None sinus congestion Timing of Episodes all day long 01/01/2016 None sinus congestion Triggers no known associated factors 01/01/2016 None sinus congestion Pertinent Findings cough 01/01/2016 None sinus congestion Pertinent Findings facial pain 01/01/2016 None sinus congestion Pertinent Findings fever 01/01/2016 None sinus congestion Pertinent Findings hoarseness 01/01/2016 None sinus congestion Location on both sides 01/01/2016 None sinus congestion Quality constant 01/01/2016 None sinus congestion Quality pain 01/01/2016 None sinus congestion Quality pressure 01/01/2016 None sore throat Location on both sides 01/01/2016 None sore throat Quality constant 01/01/2016 None sore throat Quality scratchy 01/01/2016 None sore throat Frequency of Episodes daily 01/01/2016 None sore throat Triggers no known associated factors 01/01/2016 None sore throat Pertinent Findings cough 01/01/2016 None sore throat Pertinent Findings facial pain 01/01/2016 None sore throat Pertinent Findings hoarseness 01/01/2016 None sinus congestion Onset and Resolution ongoing 01/01/2016 None sore throat Onset and Resolution ongoing 01/01/2016 None sinus congestion Onset and Resolution sudden in onset 12/29/2015 None sinus congestion Onset of Symptom 5 days ago 12/29/2015 None sinus congestion Timing of Episodes all day long 12/29/2015 None sinus congestion Frequency of Episodes daily 12/29/2015 None sinus congestion Triggers no known associated factors 12/29/2015 None sinus congestion Pertinent Findings cough 12/29/2015 None sinus congestion Pertinent Findings facial pain 12/29/2015 None sinus congestion Pertinent Findings fever 12/29/2015 None sinus congestion Pertinent Findings hoarseness 12/29/2015 None sinus congestion Location on both sides 12/29/2015 None sinus congestion Quality pressure 12/29/2015 None sinus congestion Quality pain 12/29/2015 None sinus congestion Quality constant 12/29/2015 None sore throat Location on both sides 12/29/2015 None sore throat Quality constant 12/29/2015 None sore throat Quality scratchy 12/29/2015 None sore throat Onset and Resolution sudden in onset 12/29/2015 None sore throat Onset of Symptom 5 days ago 12/29/2015 None sore throat Frequency of Episodes daily 12/29/2015 None sore throat Triggers no known associated factors 12/29/2015 None sore throat Pertinent Findings cough 12/29/2015 None sore throat Pertinent Findings hoarseness 12/29/2015 None sore throat Pertinent Findings facial pain 12/29/2015 None hypothyroid Location at the level of the thyroid 07/27/2015 None hypothyroid Quality chronic 07/27/2015 None hypothyroid Onset and Resolution ongoing 07/27/2015 None hypothyroid Alleviating Factors medication 07/27/2015 None hypothyroid Pertinent Findings decreased energy 07/27/2015 None hypothyroid Pertinent Findings increased need for sleep 07/27/2015 None cough Location in the lung 07/16/2015 None cough Quality productive 07/16/2015 clear thick sputum cough Onset and Resolution ongoing 07/16/2015 None cough Onset of Symptom 1 months ago 07/16/2015 None cough Frequency of Episodes daily 07/16/2015 None cough Pertinent Findings Denies chest discomfort 07/16/2015 None cough Pertinent Findings Denies fever 07/16/2015 None cough Pertinent Findings dyspnea 07/16/2015 None cough Limitation on Activities does not limit activities 07/16/2015 None cough Triggers no known associated factors 07/16/2015 None cough Alleviating Factors OTC medications 07/16/2015 None hypothyroid Onset and Resolution ongoing 03/16/2015 None hypothyroid Pertinent Findings decreased energy 03/16/2015 None hypothyroid Pertinent Findings increased need for sleep 03/16/2015 None hypothyroid Location at the level of the thyroid 03/16/2015 None hypothyroid Quality chronic 03/16/2015 None hypothyroid Alleviating Factors medication 03/16/2015 None weight gain/obesity Quality worsening 12/15/2014 15 lb over 9 months weight gain/obesity Pertinent Findings Denies dyspnea 12/15/2014 None weight gain/obesity Pertinent Findings edema 12/15/2014 bilateral extremities- but better within last few weeks edema Location on both legs 12/15/2014 None edema Location on both ankles 12/15/2014 None edema Quality intermittent 12/15/2014 None edema Onset of Symptom 3 months ago 12/15/2014 reports that it is better last few weeks fatigue Onset of Symptom _ years ago 12/15/2014 None depression Onset of Symptom _ months ago 12/15/2014 9 months ago, 10 family members since February depression Pertinent Findings depressed mood 12/15/2014 None Advance Directives No Advance Directive data Encounters Encounter Performer Location Codes Date ([id number]) 08469 EST. PATIENT, LEVEL IV Diagnosis: Atrophy of thyroid (acquired)[ICD10: E03.4] Diagnosis: Essential (primary) hypertension[ICD10: I10] Diagnosis: Obstructive sleep apnea (adult) (pediatric)[ICD10: G47.33] Kylee Mccoy MD , [facility] CPT-4: 84538 07/10/2017 53209 EST. PATIENT, LEVEL III Diagnosis: Benign paroxysmal vertigo, bilateral[ICD10: H81.13] [facility] CPT-4: 35919 02/14/2017 ([id number]) 39671 EST. PATIENT, LEVEL IV Diagnosis: Essential (primary) hypertension[ICD10: I10] Diagnosis: Atrophy of thyroid (acquired)[ICD10: E03.4] Diagnosis: Obstructive sleep apnea (adult) (pediatric)[ICD10: G47.33] Diagnosis: Primary generalized (osteo)arthritis[ICD10: M15.0] [facility] CPT-4: 54086 01/19/2017 ([id number]) 02514 EST. PATIENT, LEVEL IV Diagnosis: Essential (primary) hypertension[ICD10: I10] Diagnosis: Pneumonia due to other specified bacteria[ICD10: J15.8] Diagnosis: Cough[ICD10: R05] Diagnosis: Atrophy of thyroid (acquired)[ICD10: E03.4] Kylee Mccoy MD, [facility] CPT-4: 39256 08/08/2016 ([id number]) Miscellaneous no charge Diagnosis: Pneumonia due to other specified bacteria[ICD10: J15.8] Diagnosis: Dehydration[ICD10: E86.0] [facility] CPT-4: 62872 05/03/2016 65965 EST. PATIENT, LEVEL IV Diagnosis: Cough[ICD10: R05] Diagnosis: Pneumonia due to other specified bacteria[ICD10: J15.8] [facility] CPT-4: 99930 05/02/2016 ([id number]) 12442 EST. PATIENT, LEVEL IV Diagnosis: Essential (primary) hypertension[ICD10: I10] Diagnosis: Atrophy of thyroid (acquired)[ICD10: E03.4] Diagnosis: Encounter for screening mammogram for malignant neoplasm of breast[ ICD10: Z12.31] [facility] CPT-4: 76319 04/11/2016 93576 EST. PATIENT, LEVEL III Diagnosis: Encounter for removal of sutures[ICD10: Z48.02] Adamaris Mccoy MD, [facility] CPT-4: 37022 02/17/2016 ([id number]) 11565 EST. PATIENT, LEVEL III Diagnosis: Pneumonia due to other specified bacteria[ICD10: J15.8] Kylee Mccoy MD, [facility] CPT-4: 55798 02/08/2016 ([id number]) 36382 EST. PATIENT, LEVEL IV Diagnosis: Hypothyroidism, unspecified[ICD10: E03.9] Diagnosis: Personal history of pneumonia (recurrent)[ICD10: Z87.01] Diagnosis: Gastro-esophageal reflux disease without esophagitis[ICD10: K21.9] Diagnosis: Essential (primary) hypertension[ICD10: I10] Kylee Mccoy MD, [facility] CPT-4: 09624 01/26/2016 84960 EST. PATIENT, LEVEL IV Diagnosis: Other malaise[ICD10: R53.81] Diagnosis: Other fatigue[ICD10: R53.83] Diagnosis: Weakness[ICD10: R53.1] Adamaris Mccoy MD, [facility] CPT-4: 11993 01/08/2016 91648 EST. PATIENT, LEVEL IV Diagnosis: Pneumonia, unspecified organism[ICD10: J18.9] Adamaris Mccoy MD, [facility] CPT-4: 26446 01/01/2016 12811 EST. PATIENT, LEVEL IV Diagnosis: Other allergic rhinitis[ICD10: J30.89] Diagnosis: Acute laryngopharyngitis[ICD10: J06.0] Diagnosis: Other acute sinusitis[ICD10: J01.80] Adamaris Mccoy MD, [facility] CPT-4: 23588 12/29/2015 32952 EST. PATIENT, LEVEL IV Diagnosis: Other allergic rhinitis[ICD10: J30.89] Diagnosis: Hypothyroidism, unspecified[ICD10: E03.9] Adamaris Mccoy MD, [facility] CPT-4: 33612 07/27/2015 ([id number]) 59901 EST. PATIENT, LEVEL III Diagnosis: Cough[ICD10: R05] Diagnosis: Pneumonia, unspecified organism[ICD10: J18.9] [facility] CPT-4: 95315 07/16/2015 ([id number]) 19219 EST. 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 Pt is to continue with current dose of medication unless directed otherwise. Check labs at regular intervals wither q 3 months or q 6 months based on previous levels of control. Hypertension - well controlled - continue with current medications, continue with no added salt diet. Pt has been encouraged to exercise daily. The pt has been advised to call the office if there are any acute concerns about change in blood pressure readings at home. ADRIANA - pt uses her cpap machine regularly - she gets relief from the machine's use. Depression - the pt lost her son recently - he passed from lung cancer - continue with supportive care. Pt is not interested in treatment. 07/10/2017 Appointment: Kylee Mccoy WPtel: [address] [place], [place] [phone] (15 min) Moderate 07/10/2017 Patient Education: Patient Medication Summary Completed 07/10/2017 Visit Plan: BPPV - Benign Paroxysmal Positional Vertigo - discussed diagnosis with the patient, offered the pt the appropriate additional information in hand-out. Pt instructed in home exercises to help alleviate and prevent future recurrent episodes of vertigo. Pt informed that if symptoms worsen, call the office for further instructions/medication interventions. 02/14/2017 App[facility]ment: [facility] [phone] [phone] (15 min) Moderate 02/14/2017 Patient Education: Patient Medication Summary Completed 02/14/2017 Patient Education: Obesity Completed 02/14/2017 Visit Plan: Medicare Exam - today we discussed the patients past history, immunizations, preventative exams/evaluations - colonoscopy, fecal occult blood testing, routine labs for renal function, glucose, cholesterol, osteoporosis evaluations, cardiovascular testing and cancer screenings. We have also discussed mental health and the signs/symptoms of depression. The patient was advised of home safety evaluations and the need to make sure that as the aging process continues, we need to be aware of different ways to make the home a safer place to reside. The patient has also been counseled that exercise is necessary - and of utmost importance as we age to help decrease fall risk and to maintain independence in the home. Today we discussed the need for the patient to create paperwork for Advanced directives as well as for the patient to provide this office with a copy of her DOPA paperwork for health care surrogate. 01/24/2017 Appointment: Adam[phone] [id number] [facility] - Annual Wellness Visit 01/24/2017 Patient Education: Patient Medication Summary Completed 01/24/2017 Patient Education: Obesity Completed 01/24/2017 Visit Plan: Hypertension - well controlled - continue with current medications, continue with no added salt diet. Pt has been encouraged to exercise daily. The pt has been advised to call the office if there are any acute concerns about change in blood pressure readings at home. Hypothyroidism - pt with chronic hypothyroidism, continue with current medication, will monitor pt to signs or symptoms of lack of adequate supplementation. Pt is to continue with current dose of medication unless directed otherwise. Check labs at regular intervals wither q 3 months or q 6 months based on previous levels of control. Sleep Apnea - CPAP use - pt is compliant with the use of the machine - she states that she feels much better with the use of the CPAP. Arthritis pain in arms/hands, feet - recommended that the patient call if pain is uncontrolled and we could consider starting Tramadol. 01/19/2017 Appointment: Kylee Mccoy WPtel: [phone] [id number] (15 min) Moderate 01/19/2017 Patient Education: Patient Medication Summary Completed 01/19/2017 Patient Education: Obesity Completed 01/19/2017 Visit Plan: Hypertension - well controlled - continue with current medications, continue with no added salt diet. Pt has been encouraged to exercise daily. The pt has been advised to call the office if there are any acute concerns about change in blood pressure readings at home. Hypothyroidism - pt with chronic hypothyroidism, continue with current medication, will monitor pt to signs or symptoms of lack of adequate supplementation. Pt is to continue with current dose of medication unless directed otherwise. Check labs at regular intervals wither q 3 months or q 6 months based on previous levels of control. Pneumonia - Pt has been diagnosed with pneumonia by physical exam. Antibiotics ordered, pt to call if not improving. The pt is aware of the diagnosis and the need for acute treatment of this illness. 08/08/2016 Appointment: Kylee Mccoy WPtel: [phone] [id number] (15 min) Moderate 08/08/2016 Patient Education: Patient Medication Summary Completed 08/08/2016 Patient Education: Obesity Completed 08/08/2016 Visit Plan: Ongoing illness - pt was seen in clinic on and is being treated for pneumonia, pt is complaining of fever, and feeling dehydrated - will check labs, will send for outpatient IV fluids. Pt is to notify clinic if symptoms do not improve, if they worsen, or with any questions or concerns. 05/03/2016 Patient Education: Patient Medication Summary Completed 05/03/2016 Patient Education: Obesity Completed 05/03/2016 Visit Plan: Pneumonia - Pt has been diagnosed with pneumonia by physical exam. A chest xray has been ordered as have antibiotics. The pt is aware of the diagnosis and the need for acute treatment of this illness. 05/02/2016 Appointment: Adamaris Spencer WPtel: [phone] [phone] (15 min) Moderate 05/02/2016 Patient Education: Patient Medication Summary Completed 05/02/2016 Visit Plan: Hypertension - well controlled - continue with current medications, continue with no added salt diet. Pt has been encouraged to exercise daily. The pt has been advised to call the office if there are any acute concerns about change in blood pressure readings at home. Hypothyroidism - pt with chronic hypothyroidism, continue with current medication, will monitor pt to signs or symptoms of lack of adequate supplementation. Pt is to continue with current dose of medication unless directed otherwise. Check labs at regular intervals wither q 3 months or q 6 months based on previous levels of control. 04/11/2016 Appointment: Kylee Mccoy WPtel: [id number] (15 min) Moderate 04/11/2016 Patient Education: Patient Medication Summary Completed 04/11/2016 Patient Education: Obesity Completed 04/11/2016 Referral: Florencio Fuller Referral Completed 02/18/2016 Visit Plan: 3 sutures removed from healing lesion on chest - skin well approximated, no erythema, warmth, edema, or drainage noted - Pt was instructed to keep the area clean, wash with antibacterial soap, use triple antibiotic ointment, call if redness, pustular drainage, or any other acute concerns. 02/17/2016 Appointment: Rajwinder Isaac WPtel: [phone] (30 min) Complex 02/17/2016 Patient Education: Patient Medication Summary Completed 02/17/2016 Patient Education: Obesity Completed 02/17/2016 Visit Plan: punch biopsy skin lesion right center chest near clavicle pneumonia - left base - rx for zpack 02/08/2016 Appointment: Kylee Mccoy WPtel: [id number] Surgical Procedure 02/08/2016 Patient Education: Patient Medication Summary Completed 02/08/2016 Patient Education: Obesity Completed 02/08/2016 Visit Plan: Hypertension - well controlled - continue with current medications, continue with no added salt diet. Pt has been encouraged to exercise daily. The pt has been advised to call the office if there are any acute concerns about change in blood pressure readings at home. Esophageal Reflux - the patient has been counseled against excessive intake of caffeine, spicy foods, peppermint, and cinnamon - all of which can exacerbate esophageal reflux. The patient is to take medications as prescribed and call the office if the symptoms are not improving. Hypothyroidism - pt with chronic hypothyroidism , continue with current medication, will monitor pt to signs or symptoms of lack of adequate supplementation. Pt is to continue with current dose of medication unless directed otherwise. Check labs at regular intervals wither q 3 months or q 6 months based on previous levels of control. 01/26/2016 Patient Education: Patient Medication Summary Completed 01/26/2016 Patient Education: Obesity Completed 01/26/2016 Care Plan: Referral Order SNOMED-CT : [id number] Pending 01/26/2016 Visit Plan: malaise and fatigue - diarrhea - will check labs, discussed the use of probiotics and checking a stool sample - will start probiotics, if symptoms do not improve will check stool sample for C. Diff - pt is to notify clinic if symptoms do not improve, or with any concerns. 01/08/2016 Patient Education: Patient Medication Summary Completed 01/08/2016 Visit Plan: Pneumonia - Pt has been diagnosed with pneumonia by physical exam. A chest xray has been ordered as have antibiotics. The pt is aware of the diagnosis and the need for acute treatment of this illness. 01/01/2016 Appointment: Rajwinder Isaacl: [address] [place], [place] [phone] (30 min) Complex 01/01/2016 Patient Education: Patient Medication Summary Completed 01/01/2016 Patient Education: Obesity Completed 01/01/2016 Visit Plan: Allergies - chronic - recommended pt to use allergy medication as prescribed. Pt has been counseled as to the appropriate use of the medication. Pt to call if allergy symptoms are not controlled with the medication. If using nasal spray, instructions as follows: Nasal spray- use twice daily, one spray per nostril twice daily, after 30 minutes, rinse out nose with saline spray.. Use opposite hand per nostril to spray in the nasal steroid allergy spray. URI - Pt advised to increase fluids, vitamin C. Discussed natural and expected course of this diagnosis and need to alert me if symptoms do not follow expected course, or if any worse. RX sent to patient's pharmacy. Sinusitis - Pt has acute infection - pain in face, maxillary region, Pt informed to use decongestant, RX given to patient, sinus rinses also recommended. Call if symptoms do not show improvement. 12/29/2015 Appointment: Rajwinder [facility]l: [phone] [phone] (15 min) Moderate 12/29/2015 Patient Education: Patient Medication Summary Completed 12/29/2015 Patient Education: Obesity Completed 12/29/2015 Visit Plan: Hypothyroidism - pt with chronic hypothyroidism , continue with current medication, will monitor pt to signs or symptoms of lack of adequate supplementation. Pt is to continue with current dose of medication unless directed otherwise. Check labs at regular intervals wither q 3 months or q 6 months based on previous levels of control. Allergies - chronic - recommended pt to use allergy medication as prescribed. Pt has been counseled as to the appropriate use of the medication. Pt to call if allergy symptoms are not controlled with the medication. If using nasal spray, instructions as follows: Nasal spray- use twice daily, one spray per nostril twice daily, after 30 minutes, rinse out nose with saline spray.. Use opposite hand per nostril to spray in the nasal steroid allergy spray. will give myrbetriq samples 07/27/2015 Appointment: (15 min) Moderate 07/27/2015 Patient Education: Patient Medication Summary Completed 07/27/2015 Visit Plan: Pneumonia - Pt has been diagnosed with pneumonia by physical exam. A chest xray has been ordered as have antibiotics. The pt is aware of the diagnosis and the need for acute treatment of this illness. 07/16/2015 Appointment: Rajwinder Isaac [facility]Ptel: [phone] [phone] (15 min) Moderate 07/16/2015 Patient Education: Patient Medication Summary Completed 07/16/2015 Visit Plan: Hypertension - well controlled - continue with current medications, continue with no added salt diet. Pt has been encouraged to exercise daily. The pt has been advised to call the office if there are any acute concerns about change in blood pressure readings at home. Facet arthropathy - recommneded that pt use heated pad to back, call if not improving , may need to consider physical therapy. Hypothyroidism - pt with chronic hypothyroidism, continue with current medication, will monitor pt to signs or symptoms of lack of adequate supplementation. Pt is to continue with current dose of medication unless directed otherwise. Check labs at regular intervals wither q 3 months or q 6 months based on previous levels of control. 03/16/2015 Appointment: Kylee Mccoy WPtel: [phone] [facility] [address] (15 min) Moderate 03/16/2015 Patient Education: Patient Medication Summary Completed 03/16/2015 Patient Education: Hypertension Completed 03/16/2015 Visit Plan: Hypertension - well controlled - continue with current medications, continue with no added salt diet. Pt has been encouraged to exercise daily. The pt has been advised to call the office if there are any acute concerns about change in blood pressure readings at home. Hypothyroidism - pt with chronic hypothyroidism, continue with current medication, will monitor pt to signs or symptoms of lack of adequate supplementation. Pt is to continue with current dose of medication unless directed otherwise. Check labs at regular intervals wither q 3 months or q 6 months based on previous levels of control. Depression - situational - pt declined medication at this time. Vitamin b12 injections to be given on routine basis. 12/15/2014 Appointment: Kylee Mccoy WPtel: [phone] [facility] [address] [place] New Patient 12/15/2014 Patient Education: Patient Medication Summary Completed 12/15/2014 Patient Education: Hypertension Completed 12/15/2014 Referral: Florencio Fuller Referral Completed Instructions Comment PUSH FLUIDS TONIGHT. GATORADE TO HELP REPLENISH THE ELECTROLYTES. ROTATE TYLENOL AND IBUPROFEN TO STAY ON TOP OF THE FEVER. 2 ANTIBIOTICS SENT TO [facility]. TAKE A PROBIOTIC WHILE ON THE ANTIBIOTIC. CALL ME TOMORROW AND LET ME KNOW HOW YOU ARE DOING. WILL ORDER CHEST X-RAY. . Pneumonia - Pt has been diagnosed with pneumonia by physical exam. A chest xray has been ordered as have antibiotics. The pt is aware of the diagnosis and the need for acute treatment of this illness. . Hypertension - well controlled - continue with current medications, continue with no added salt diet. Pt has been encouraged to exercise daily. The pt has been advised to call the office if there are any acute concerns about change in blood pressure readings at home. Hypothyroidism - pt with chronic hypothyroidism, continue with current medication, will monitor pt to signs or symptoms of lack of adequate supplementation. Pt is to continue with current dose of medication unless directed otherwise. Check labs at regular intervals wither q 3 months or q 6 months based on previous levels of control. Sleep Apnea - CPAP use - pt is compliant with the use of the machine - she states that she feels much better with the use of the CPAP. Arthritis pain in arms/hands, feet - recommended that the patient call if pain is uncontrolled and we could consider starting Tramadol. Use allergy medication over the counter - clairitin or zyrtec or generic. . Hypothyroidism - pt with chronic hypothyroidism, continue with current medication, will monitor pt to signs or symptoms of lack of adequate supplementation. Pt is to continue with current dose of medication unless directed otherwise. Check labs at regular intervals wither q 3 months or q 6 months based on previous levels of control. Allergies - chronic - recommended pt to use allergy medication as prescribed. Pt has been counseled as to the appropriate use of the medication. Pt to call if allergy symptoms are not controlled with the medication. If using nasal spray, instructions as follows: Nasal spray- use twice daily, one spray per nostril twice daily, after 30 minutes, rinse out nose with saline spray.. Use opposite hand per nostril to spray in the nasal steroid allergy spray. will give myrbetriq samples . BPPV - Benign Paroxysmal Positional Vertigo - discussed diagnosis with the patient, offered the pt the appropriate additional information in hand-out. Pt instructed in home exercises to help alleviate and prevent future recurrent episodes of vertigo. Pt informed that if symptoms worsen, call the office for further instructions/medication interventions. . Hypertension - well controlled - continue with current medications, continue with no added salt diet. Pt has been encouraged to exercise daily. The pt has been advised to call the office if there are any acute concerns about change in blood pressure readings at home. Hypothyroidism - pt with chronic hypothyroidism, continue with current medication, will monitor pt to signs or symptoms of lack of adequate supplementation. Pt is to continue with current dose of medication unless directed otherwise. Check labs at regular intervals wither q 3 months or q 6 months based on previous levels of control. Depression - situational - pt declined medication at this time. Vitamin b12 injections to be given on routine basis. . Medicare Exam - today we discussed the patients past history, immunizations, preventative exams/evaluations - colonoscopy, fecal occult blood testing, routine labs for renal function, glucose, cholesterol, osteoporosis evaluations, cardiovascular testing and cancer screenings. We have also discussed mental health and the signs/symptoms of depression. The patient was advised of home safety evaluations and the need to make sure that as the aging process continues, we need to be aware of different ways to make the home a safer place to reside. The patient has also been counseled that exercise is necessary - and of utmost importance as we age to help decrease fall risk and to maintain independence in the home. Today we discussed the need for the patient to create paperwork for Advanced directives as well as for the patient to provide this office with a copy of her DOPA paperwork for health care surrogate. . Hypertension - well controlled - continue with current medications, continue with no added salt diet. Pt has been encouraged to exercise daily. The pt has been advised to call the office if there are any acute concerns about change in blood pressure readings at home. Hypothyroidism - pt with chronic hypothyroidism, continue with current medication, will monitor pt to signs or symptoms of lack of adequate supplementation. Pt is to continue with current dose of medication unless directed otherwise. Check labs at regular intervals wither q 3 months or q 6 months based on previous levels of control. . Hypertension - well controlled - continue with current medications, continue with no added salt diet. Pt has been encouraged to exercise daily. The pt has been advised to call the office if there are any acute concerns about change in blood pressure readings at home. Facet arthropathy - recommneded that pt use heated pad to back, call if not improving, may need to consider physical therapy. Hypothyroidism - pt with chronic hypothyroidism, continue with current medication, will monitor pt to signs or symptoms of lack of adequate supplementation. Pt is to continue with current dose of medication unless directed otherwise. Check labs at regular intervals wither q 3 months or q 6 months based on previous levels of control. Extended Release Melatonin 5mg at night to hep augment sleep at night. aspercreme or biofreeze to shoulder - call if not improving with the biofreeze and the water exercise. . Hypothyroidism - pt with chronic hypothyroidism, continue with current medication, will monitor pt to signs or symptoms of lack of adequate supplementation. Pt is to continue with current dose of medication unless directed otherwise. Check labs at regular intervals wither q 3 months or q 6 months based on previous levels of control. Hypertension - well controlled - continue with current medications, continue with no added salt diet. Pt has been encouraged to exercise daily. The pt has been advised to call the office if there are any acute concerns about change in blood pressure readings at home. ADRIANA - pt uses her cpap machine regularly - she gets relief from the machine's use. Depression - the pt lost her son recently - he passed from lung cancer - continue with supportive care. Pt is not interested in treatment. . malaise and fatigue - diarrhea - will check labs, discussed the use of probiotics and checking a stool sample - will start probiotics, if symptoms do not improve will check stool sample for C. Diff - pt is to notify clinic if symptoms do not improve, or with any concerns. START CEFDINIR TODAY-IT'S TWICE DAILY START ZPACK TOMORROW CHEST XRAY AT THE HOSPITAL CALL IF SYMPTOMS DO NOT IMPROVE OR IF ANY WORSE . Pneumonia - Pt has been diagnosed with pneumonia by physical exam. A chest xray has been ordered as have antibiotics. The pt is aware of the diagnosis and the need for acute treatment of this illness. Probiotic ([employer] or [employer]) over the counter while on the antibiotic Increase fluid intake and vitamin C . Allergies - chronic - recommended pt to use allergy medication as prescribed. Pt has been counseled as to the appropriate use of the medication. Pt to call if allergy symptoms are not controlled with the medication. If using nasal spray, instructions as follows: Nasal spray- use twice daily, one spray per nostril twice daily, after 30 minutes, rinse out nose with saline spray.. Use opposite hand per nostril to spray in the nasal steroid allergy spray. URI - Pt advised to increase fluids, vitamin C. Discussed natural and expected course of this diagnosis and need to alert me if symptoms do not follow expected course, or if any worse. RX sent to patient's pharmacy. Sinusitis - Pt has acute infection - pain in face, maxillary region, Pt informed to use decongestant, RX given to patient, sinus rinses also recommended. Call if symptoms do not show improvement. . punch biopsy skin lesion right center chest near clavicle pneumonia - left base - rx for zpack . Pneumonia - Pt has been diagnosed with pneumonia by physical exam. A chest xray has been ordered as have antibiotics. The pt is aware of the diagnosis and the need for acute treatment of this illness. . Ongoing illness - pt was seen in clinic on 05/02/16 and is being treated for pneumonia, pt is complaining of fever, and feeling dehydrated - will check labs, will send for outpatient IV fluids. Pt is to notify clinic if symptoms do not improve, if they worsen, or with any questions or concerns. . 3 sutures removed from healing lesion on chest - skin well approximated, no erythema, warmth, edema, or drainage noted - Pt was instructed to keep the area clean, wash with antibacterial soap, use triple antibiotic ointment, call if redness, pustular drainage, or any other acute concerns. probiotic - like culturelle or [employer] - take twice daily x 1 week. Hypertension - well controlled - continue with current medications, continue with no added salt diet. Pt has been encouraged to exercise daily. The pt has been advised to call the office if there are any acute concerns about change in blood pressure readings at home. Hypothyroidism - pt with chronic hypothyroidism, continue with current medication, will monitor pt to signs or symptoms of lack of adequate supplementation. Pt is to continue with current dose of medication unless directed otherwise. Check labs at regular intervals wither q 3 months or q 6 months based on previous levels of control. Pneumonia - Pt has been diagnosed with pneumonia by physical exam. Antibiotics ordered, pt to call if not improving. The pt is aware of the diagnosis and the need for acute treatment of this illness. . Hypertension - well controlled - continue with current medications, continue with no added salt diet. Pt has been encouraged to exercise daily. The pt has been advised to call the office if there are any acute concerns about change in blood pressure readings at home. Esophageal Reflux - the patient has been counseled against excessive intake of caffeine, spicy foods, peppermint, and cinnamon - all of which can exacerbate esophageal reflux. The patient is to take medications as prescribed and call the office if the symptoms are not improving. Hypothyroidism - pt with chronic hypothyroidism, continue with current medication, will monitor pt to signs or symptoms of lack of adequate supplementation. Pt is to continue with current dose of medication unless directed otherwise. Check labs at regular intervals wither q 3 months or q 6 months based on previous levels of control.
--- OUTSIDE RECORDS SUMMARY | 2018-01-17 06:17 | XMS REPORT | CCD ---
Author Author [facility] Organization [facility] Address [address] [place] [address] Phone Care Team Providers Care Note Taker Name Role Phone PP Unavailable CCM Unavailable Summary Purpose Interface Exchange Insurance Providers Payer name Policy type / Coverage type Covered alliance party ID Effective Begin Date Effective End Date WPS Medicare Part B Medicare Part B [id number] Unknown Unknown [facility] Medicare Part B [id number] Unknown Unknown Family history Sister Diagnosis Age [...] Unknown Retired 12/15/[address]: 342959429 Never smoker 12/15/[address]: 892891278 Never drinks alcohol 12/15/2014 Allergies, Adverse Reactions, [...] Start Date Stop Date Status Fill Instructions oxybutynin chloride 5 mg tablet RxNorm: 606526 TAKE ONE TABLET BY MOUTH TWICE A DAY FOR URINARY INCONTINENCE 06/13/2017 Active oxybutynin chloride 5 mg tablet RxNorm: 783104 TAKE ONE TABLET BY MOUTH TWICE A DAY FOR URINARY INCONTINENCE 06/13/2017 Active levothyroxine 112 mcg tablet RxNorm: 248108 TAKE ONE TABLET BY MOUTH DAILY 05/08/2017 08/05/2017 Active cyanocobalamin (vit B-12) 1,000 mcg/mL injection solution RxNorm: 095614 INJECT 1 ML INTRAMUSCULARLY EVERY 2 WEEKS 03/24/2017 06/16/2018 Active meclizine 25 mg tablet RxNorm: 320472 1 Tablet(s) PO TID as needed Dizziness 02/14/2017 02/23/2017 Inactive levothyroxine 112 mcg tablet RxNorm: 342706 TAKE ONE TABLET BY MOUTH DAILY 02/14/2017 05/07/2017 Inactive levothyroxine 112 mcg tablet RxNorm: 389207 TAKE ONE TABLET BY MOUTH DAILY 11/14/2016 02/11/2017 Inactive Hyzaar 100 mg-12.5 mg tablet RxNorm: 391474 TAKE ONE TABLET BY MOUTH DAILY 10/24/2016 07/20/2017 Active levothyroxine 112 mcg tablet RxNorm: 807777 TAKE ONE TABLET BY MOUTH DAILY 08/17/2016 11/13/2016 Inactive ceftriaxone 500 mg solution for injection RxNorm: 0703220 1 Milliliter(s) Inj 08/08/2016 08/08/2016 Inactive azithromycin 250 mg tablet RxNorm: 629981 2 Tablet(s) PO on day #1, then one pill daily x 4 days 08/08/2016 01/18/2017 Inactive Kenalog 40 mg/mL suspension for injection RxNorm: 3399279 1 Milliliter(s) Inj 08/08/2016 08/08/2016 Inactive azithromycin 500 mg tablet RxNorm: 176908 1 Tablet(s) PO UD 08/07/2016 Inactive ceftriaxone 500 mg solution for injection RxNorm: 9697705 Inj 05/02/2016 05/02/2016 Inactive cefdinir 300 mg capsule RxNorm: 714026 1 Capsule(s) PO BID 05/11/2016 Inactive oxybutynin chloride 5 mg tablet RxNorm: 179846 1 Tablet(s) PO BID ( urinary incontinence) 04/18/2016 10/14/2016 Inactive azithromycin 500 mg tablet RxNorm: 187302 1 Tablet(s) PO UD two pills on day #1, then one pill daily x 4 days 02/08/2016 Inactive cyanocobalamin (vit B-12) 1,000 mcg/mL injection solution RxNorm: 146910 INJECT 1 ML INTRAMUSCULARLY EVERY 2 WEEKS 02/03/2016 03/23/2017 Inactive Pepcid 40 mg tablet RxNorm: 967567 1 Tablet(s) PO QPM 201501/18/2017 Inactive prednisone 10 mg tablet RxNorm: 851832 Tablet(s) PO UD 201501/25/2016 Inactive 6,5,4,3,2,1 ceftriaxone 500 mg solution for injection RxNorm: 0429034 Inj 01/01/2016 01/01/2016 Inactive Augmentin 500 mg-125 mg tablet RxNorm: 335849 1 Tablet(s) PO TID 12/29/2015 01/04/2016 Inactive levothyroxine 112 mcg tablet RxNorm: 694509 TAKE ONE TABLET BY MOUTH DAILY 12/21/2015 11/13/2016 Inactive levothyroxine 112 mcg tablet RxNorm: 497444 TAKE ONE TABLET BY MOUTH DAILY 12/21/2015 12/20/2015 Inactive Hyzaar 100 mg-12.5 mg tablet RxNorm: 394946 Tablet(s) TAKE ONE TABLET BY MOUTH DAILY 10/26/2015 10/19/2016 Inactive oxybutynin chloride 5 mg tablet RxNorm: 514178 1 Tablet(s) PO BID ( urinary incontinence) 09/25/2015 01/22/2016 Inactive DC myrbetriq Myrbetriq 25 mg tablet,extended release RxNorm: 5063630 1 Tablet(s) PO QHS 09/09/2015 10/08/2015 Inactive Myrbetriq 25 mg tablet,extended release RxNorm: 9571568 1 Tablet(s) PO QHS 09/09/2015 09/08/2015 Inactive levothyroxine 112 mcg tablet RxNorm: 251380 Tablet(s) TAKE ONE TABLET BY MOUTH DAILY 07/28/2015 12/20/2015 Inactive Just put on file- fill when ready levothyroxine 112 mcg tablet RxNorm: 934728 TAKE ONE TABLET BY MOUTH DAILY 07/23/2015 07/27/2015 Inactive oxybutynin chloride 5 mg tablet RxNorm: 978865 1 Tablet(s) PO TID ( urinary incontinence) 07/20/2015 09/17/2015 Inactive cefdinir 300 mg capsule RxNorm: 802852 1 Capsule(s) PO BID 09/201507/22/2015 Inactive ceftriaxone 500 mg solution for injection RxNorm: 6238584 Inj 07/16/2015 07/16/2015 Inactive Kenalog 40 mg/mL suspension for injection RxNorm: 9329046 Milliliter(s) Inj 07/16/2015 07/16/2015 Inactive Zithromax Z-Milad 250 mg tablet RxNorm: 459330 1 Tablet(s) PO UD 07/16/2015 07/20/2015 Inactive zpack Hyzaar 100 mg-12.5 mg tablet RxNorm: 278289 TAKE ONE TABLET BY MOUTH DAILY 01/16/2015 10/12/2015 Inactive Vitamin D2 50,000 unit capsule RxNorm: 636412 1 Capsule(s) PO QW 12/17/2014 03/16/2015 Inactive Vitamin D2 50,000 unit capsule RxNorm: 880615 1 Capsule(s) PO QW 12/17/2014 12/16/2014 Inactive levothyroxine 112 mcg tablet RxNorm: 259656 1 Tablet(s) PO daily 12/15/2014 07/12/2015 Inactive cyanocobalamin (vit B-12) 1,000 mcg/mL injection solution RxNorm: 031522 1 Milliliter(s) Inj [id number] 12/03/201406/30 Inactive cyanocobalamin (vit B-12) 1,000 mcg/mL injection solution RxNorm: 658963 1 Milliliter(s) Inj [id number] 12/03/201412/02 Inactive Hyzaar 100 mg-12.5 mg tablet RxNorm: 847659 1 Tablet(s) PO daily 10/20/2014 10/19/2014 Inactive Hyzaar 100 mg-12.5 mg tablet RxNorm: 524731 1 Tablet(s) PO daily 10/20/2014 01/15/2015 Inactive [SAVINGS FOR NON-COVERED DRUGS -- BIN:[id number], PCN: [id number], Group: [id number], ID# [id number], Questions: . THIS IS NOT INSURANCE.] Lasix 40 mg tablet RxNorm: 859262 1 Tablet(s) PO as doctor directed prn swelling No Start Date Active Probiotic oral RxNorm : 6205 oral No Start Date Active biotin oral RxNorm: 1588 oral No Start Date Active oxybutynin chloride 5 mg tablet RxNorm: 522350 1 Tablet(s) PO daily No Start Date Active Vitamin D3 5,000 unit tablet RxNorm: 847984 1 Tablet(s) PO daily No Start Date Active Probiotic and Acidophilus oral RxNorm: oral No Start Date 01/17/2017 Inactive oxybutynin chloride 5 mg tablet RxNorm: 777821 1 Tablet(s) PO TID as needed ( urinary incontinence) No Start Date 2015 Inactive levothyroxine 100 mcg tablet RxNorm: 986247 1 Tablet(s) PO daily No Start Date 12/14/2014 Inactive Vitamin B-12 1,000 mcg tablet RxNorm: 412039 1 Tablet(s) PO daily No Start Date 01/10/2017 Inactive Vitamin B-12 1,000 mcg/mL injection solution RxNorm: 853950 1 Milliliter(s) Inj Q 2 weeks No Start Date 01/17/2017 Inactive biotin 1 mg tablet RxNorm: 428981 1 Tablet(s) PO daily No Start Date 01/17/2017 Inactive Medication Administered Medication Codes Instructions Start Date Status Kenalog 40 mg/mL suspension for injection RxNorm: 1057849 1Milliliter 08/08/2016 No longer Active ceftriaxone 500 mg solution for injection RxNorm: 5369848 1Milliliter 08/08/2016 No longer Active ceftriaxone 500 mg solution for injection RxNorm: 1457451 05/02/2016 No longer Active ceftriaxone 500 mg solution for injection RxNorm: 0609528 01/01/2016 No longer Active Kenalog 40 mg/mL suspension for injection RxNorm: 2404856 Milliliter 07/16/2015 No longer Active ceftriaxone 500 mg solution for injection RxNorm: 5545542 07/16/2015 No longer Active Immunizations Vaccine Codes [...] Observation Code Item Item Code Result Date Tsh Ord6 hTSH II 0.94 uIU/mL 01/19/2017 Cbc With Differential Ord2 WBC 6.16 K/ul 01/19/2017 Cbc With Differential Ord2 RBC 3.36 M/ul 01/19/2017 Cbc With Differential Ord2 HGB 10.7 g/dl 01/19/2017 Cbc With Differential Ord2 Neut% 54.2 % 01/19/2017 Cbc With Differential Ord2 HCT 33.4 % 01/19/2017 Cbc With Differential Ord2 MCV 99.4 fl 01/19/2017 Cbc With Differential Ord2 Lymph% 32.1 % 01/19/2017 Cbc With Differential Ord2 MCH 31.8 pg 01/19/2017 Cbc With Differential Ord2 Barron% 10.9 % 01/19/2017 Cbc With Differential Ord2 MCHC 32.0 pg 01/19/2017 Cbc With Differential Ord2 Eos% 2.3 % 01/19/2017 Cbc With Differential Ord2 PLT 292 K/ul 01/19/2017 Cbc With Differential Ord2 Baso% 0.5 % 01/19/2017 Cbc With Differential Ord2 RDW 13.3 % 01/19/2017 Cbc With Differential Ord2 Neut ABS# 3.34 K/ul 01/19/2017 Cbc With Differential Ord2 Lymph ABS# 1.98 K/ul 01/19/2017 Cbc With Differential Ord2 Barron ABS# 0.7 K/ul 01/19/2017 Cbc With Differential Ord2 Eos ABS# 0.1 K/ul 01/19/2017 Cbc With Differential Ord2 Baso ABS# 0.0 K/ul 01/19/2017 Comp Metabolic Kih352 NA 142 mEq/L 01/19/2017 Comp Metabolic Ooa584 K 4.0 mEq/L 01/19/2017 Comp Metabolic Pcn864 CL 105 mEq/L 01/19/2017 Comp Metabolic Eyj455 CO2 27.0 mEq/L 01/19/2017 Comp Metabolic Ijj808 ANION GAP 14 01/19/2017 Comp Metabolic Exw233 GLUCOSE 98 mg/dL 01/19/2017 Comp Metabolic Arn707 Creat 1.1 mg/dL 01/19/2017 Comp Metabolic Nyz506 eGFR 50 ml/min/1.73m2 01/19/2017 Comp Metabolic Jof121 BUN 19 mg/dL 01/19/2017 Comp Metabolic Eko546 B/C Ratio 17.0 Ratio 01/19/2017 Comp Metabolic Gli538 CALCIUM 9.2 mg/dL 01/19/2017 Comp Metabolic Mwl380 ALK PHOS 59 U/L 01/19/2017 Comp Metabolic Viq610 AST(SGOT) 17 U/L 01/19/2017 Comp Metabolic Ldu101 ALT(SGPT) 15 U/L 01/19/2017 Comp Metabolic Umv093 BILI T 0.3 mg/dL 01/19/2017 Comp Metabolic Omy670 ALBUMIN 3.6 g/dL 01/19/2017 Comp Metabolic Cfi681 TPRO 6.0 g/dL 01/19/2017 Comp Metabolic Gnq138 GLOB 2.4 g/dL 01/19/2017 Comp Metabolic Kqy467 A/G Ratio 1.5 Ratio 01/19/2017 Comp Metabolic Omz629 Osmo 285 mOsmo 01/19/2017 Comp Metabolic Udy678 NA 140 mEq/L 01/22/2016 Comp Metabolic Mzj479 K 4.1 mEq/L 01/22/2016 Comp Metabolic Djg146 CL 105 mEq/L 01/22/2016 Comp Metabolic Jhg921 CO2 30.0 mEq/L 01/22/2016 Comp Metabolic Dlw879 ANION GAP 9 01/22/2016 Comp Metabolic Jgr821 GLUCOSE 92 mg/dL 01/22/2016 Comp Metabolic Ljr370 Creat 1.0 mg/dL 01/22/2016 Comp Metabolic Hon296 eGFR 55 ml/min/1.73m2 01/22/2016 Comp Metabolic Iec898 BUN 20 mg/dL 01/22/2016 Comp Metabolic Dqh202 B/C Ratio 19.6 Ratio 01/22/2016 Comp Metabolic Duc237 CALCIUM 9.5 mg/dL 01/22/2016 Comp Metabolic Juk976 ALK PHOS 66 U/L 01/22/2016 Comp Metabolic Zfk436 AST(SGOT) 14 U/L 01/22/2016 Comp Metabolic Qmd124 ALT(SGPT) 15 U/L 01/22/2016 Comp Metabolic Yjw480 BILI T 0.4 mg/dL 01/22/2016 Comp Metabolic Utj783 ALBUMIN 3.8 g/dL 01/22/2016 Comp Metabolic Pif297 TPRO 6.2 g/dL 01/22/2016 Comp Metabolic Odv980 GLOB 2.5 g/dL 01/22/2016 Comp Metabolic Rve112 A/G Ratio 1.5 Ratio 01/22/2016 Comp Metabolic Jni749 Osmo 282 mOsmo 01/22/2016 Lipid Ord30 CHOL 177 mg/dL 01/22/2016 Lipid Ord30 HDL 56.0 mg/dl 01/22/2016 Lipid Ord30 TRIG 85 mg/dL 01/22/2016 Lipid Ord30 LDL 104 mg/dL 01/22/2016 Lipid Ord30 C/HDL 3.2 Ratio 01/22/2016 Free T4 Cdv100 FREE T4 1.10 ng/dL 01/22/2016 Cbc With Differential Ord2 WBC 6.28 K/ul 01/22/2016 Cbc With Differential Ord2 RBC 3.62 M/ul 01/22/2016 Cbc With Differential Ord2 HGB 11.4 g/dl 01/22/2016 Cbc With Differential Ord2 HCT 34.9 % 01/22/2016 Cbc With Differential Ord2 Neut% 45.0 % 01/22/2016 Cbc With Differential Ord2 Lymph% 38.9 % 01/22/2016 Cbc With Differential Ord2 MCV 96.4 fl 01/22/2016 Cbc With Differential Ord2 MCH 31.5 pg 01/22/2016 Cbc With Differential Ord2 Barron% 11.9 % 01/22/2016 Cbc With Differential Ord2 Eos% 3.7 % 01/22/2016 Cbc With Differential Ord2 MCHC 32.7 pg 01/22/2016 Cbc With Differential Ord2 Baso% 0.5 % 01/22/2016 Cbc With Differential Ord2 PLT 257 K/ul 01/22/2016 Cbc With Differential Ord2 RDW 13.7 % 01/22/2016 Cbc With Differential Ord2 Neut ABS# 2.83 K/ul 01/22/2016 Cbc With Differential Ord2 Lymph ABS# 2.44 K/ul 01/22/2016 Cbc With Differential Ord2 Barron ABS# 0.8 K/ul 01/22/2016 Cbc With Differential Ord2 Eos ABS# 0.2 K/ul 01/22/2016 Cbc With Differential Ord2 Baso ABS# 0.0 K/ul 01/22/2016 Tsh Ord6 hTSH II 1.53 uIU/mL 01/22/2016 Comp Metabolic Vxe762 NA 141 mEq/L 01/08/2016 Comp Metabolic Cbu566 K 3.9 mEq/L 01/08/2016 Comp Metabolic Unv532 CL 104 mEq/L 01/08/2016 Comp Metabolic Ruf356 CO2 31.0 mEq/L 01/08/2016 Comp Metabolic Qer049 ANION GAP 10 01/08/2016 Comp Metabolic Cyu770 GLUCOSE 102 mg/dL 01/08/2016 Comp Metabolic Ebm442 Creat 1.0 mg/dL 01/08/2016 Comp Metabolic Xhk433 eGFR 55 ml/min/1.73m2 01/08/2016 Comp Metabolic Rkt157 BUN 26 mg/dL 01/08/2016 Comp Metabolic Edy611 B/C Ratio 25.2 Ratio 01/08/2016 Comp Metabolic Zfj464 CALCIUM 9.3 mg/dL 01/08/2016 Comp Metabolic Apz482 ALK PHOS 62 U/L 01/08/2016 Comp Metabolic Owo309 AST(SGOT) 16 U/L 01/08/2016 Comp Metabolic Ofa198 ALT(SGPT) 26 U/L 01/08/2016 Comp Metabolic Znk569 BILI T 0.3 mg/dL 01/08/2016 Comp Metabolic Gdg645 ALBUMIN 3.6 g/dL 01/08/2016 Comp Metabolic Ksf500 TPRO 6.1 g/dL 01/08/2016 Comp Metabolic Vau016 GLOB 2.5 g/dL 01/08/2016 Comp Metabolic Muv282 A/G Ratio 1.5 Ratio 01/08/2016 Comp Metabolic Fql053 Osmo 286 mOsmo 01/08/2016 Cbc With Differential Ord2 WBC 11.28 K/ul 01/08/2016 Cbc With Differential Ord2 RBC 3.76 M/ul 01/08/2016 Cbc With Differential Ord2 HGB 11.8 g/dl 01/08/2016 Cbc With Differential Ord2 Neut% 61.4 % 01/08/2016 Cbc With Differential Ord2 HCT 36.2 % 01/08/2016 Cbc With Differential Ord2 Lymph% 28.9 % 01/08/2016 Cbc With Differential Ord2 MCV 96.3 fl 01/08/2016 Cbc With Differential Ord2 MCH 31.4 pg 01/08/2016 Cbc With Differential Ord2 Barron% 7.7 % 01/08/2016 Cbc With Differential Ord2 MCHC 32.6 pg 01/08/2016 Cbc With Differential Ord2 Eos% 1.7 % 01/08/2016 Cbc With Differential Ord2 PLT 422 K/ul 01/08/2016 Cbc With Differential Ord2 Baso% 0.3 % 01/08/2016 Cbc With Differential Ord2 Neut ABS# 6.93 K/ul 01/08/2016 Cbc With Differential Ord2 RDW 13.4 % 01/08/2016 Cbc With Differential Ord2 Lymph ABS# 3.26 K/ul 01/08/2016 Cbc With Differential Ord2 Barron ABS# 0.9 K/ul 01/08/2016 Cbc With Differential Ord2 Eos ABS# 0.2 K/ul 01/08/2016 Cbc With Differential Ord2 Baso ABS# 0.0 K/ul 01/08/2016 Tsh Ord6 hTSH II 1.43 uIU/mL 07/27/2015 Free T4 Jzq949 FREE T4 1.28 ng/dL 07/27/2015 Free T4 Eaz799 FREE T4 1.22 ng/dL 03/11/2015 Comp Metabolic Ksa457 NA 136 mEq/L 03/11/2015 Comp Metabolic Oew291 K 4.1 mEq/L 03/11/2015 Comp Metabolic Dph538 CL 103 mEq/L 03/11/2015 Comp Metabolic Anw419 CO2 29.0 mEq/L 03/11/2015 Comp Metabolic Wbj684 ANION GAP 8 03/11/2015 Comp Metabolic Hyx102 GLUCOSE 96 mg/dL 03/11/2015 Comp Metabolic Han404 Creat 1.0 mg/dL 03/11/2015 Comp Metabolic Xam807 eGFR 54 ml/min/1.73m2 03/11/2015 Comp Metabolic Rny396 BUN 19 mg/dL 03/11/2015 Comp Metabolic Ztx876 B/C Ratio 18.3 Ratio 03/11/2015 Comp Metabolic Qdo732 CALCIUM 9.2 mg/dL 03/11/2015 Comp Metabolic Ivg504 ALK PHOS 69 U/L 03/11/2015 Comp Metabolic Elc498 AST(SGOT) 19 U/L 03/11/2015 Comp Metabolic Wyo121 ALT(SGPT) 14 U/L 03/11/2015 Comp Metabolic Xbn352 BILI T 0.4 mg/dL 03/11/2015 Comp Metabolic Mzo894 ALBUMIN 3.8 g/dL 03/11/2015 Comp Metabolic Fjf165 TPRO 6.4 g/dL 03/11/2015 Comp Metabolic Fsb752 GLOB 2.6 g/dL 03/11/2015 Comp Metabolic Vik800 A/G Ratio 1.5 Ratio 03/11/2015 Comp Metabolic Pye617 Osmo 274 mOsmo 03/11/2015 Lipid Ord30 CHOL 149 mg/dL 03/11/2015 Lipid Ord30 HDL 49.0 mg/dl 03/11/2015 Lipid Ord30 TRIG 84 mg/dL 03/11/2015 Lipid Ord30 LDL 83 mg/dL 03/11/2015 Lipid Ord30 C/HDL 3.0 Ratio 03/11/2015 %Hba1C Lsj446 % HbA1c 54987-1 5.9 % 03/11/2015 %Hba1C Fkz177 Gluc Ave 123 mg/dL 03/11/2015 Tsh Ord6 [...] 1994 Ears/Nose/Throat oral cavity/pharynx/larynx Overall: hypopharynx benign 07/10/2017 [...] -4: G0439 01/24/2017 THER/PROPH/DIAG INJ SC/IM CPT-4: 81201 08/08/2016 TRIAMCINOLONE ACET INJ NOS CPT-4: J3301 08/08/2016 ROCEPHIN, PER 250 MG CPT-4: J0696 08/08/2016 THER/PROPH/DIAG INJ SC/IM CPT-4: 77546 05/02/2016 ROCEPHIN, PER 250 MG CPT-4: J0696 05/02/2016 BIOPSY SKIN LESION CPT -4: 27105 02/08/2016 URINALYSIS NONAUTO W/O SCOPE CPT-4: 02463 01/08/2016 ROCEPHIN, PER 250 MG CPT-4: J0696 01/01/2016 TRIAMCINOLONE ACET INJ NOS CPT-4: J3301 07/16/2015 ROCEPHIN, PER 250 MG CPT-4: J0696 07/16/2015 Vital Signs Date Vital 07/10/2017 Blood Pressure 1: 146/78 Code : 8480-6 BMI: 40.6 Code : 46446-6 Heart Rate 1 : 67 bpm Height: 5' SpO2: 98% Weight: 208 lbs 02/14/2017 Blood Pressure 1: 150/68 Code : 8480-6 BMI: 40.8 Code : 68649-4 Heart Rate 1 : 68 bpm Height: 5' SpO2: 97% Weight: 209 lbs 01/24/2017 Blood Pressure 1: 138/70 Code : 8480-6 BMI: 41.0 Code : 46759-3 Heart Rate 1 : 72 bpm Height: 5' SpO2: 97% Waist Measure (cm): 91 cm Weight: 210 lbs 01/19/2017 Blood Pressure 1: 140/68 Code : 8480-6 BMI: 41.0 Code : 14817-1 Heart Rate 1 : 70 bpm Height: 5' SpO2: 95% Weight: 210 lbs 08/08/2016 Blood Pressure 1: 142/70 Code : 8480-6 BMI: 40.8 Code : 01525-8 Heart Rate 1 : 64 bpm Height: 5' SpO2: 98% Weight: 209 lbs 05/03/2016 Blood Pressure 1: 148/70 Code : 8480-6 BMI: 41.0 Code : 57233-6 Heart Rate 1 : 99 bpm Height: 5' SpO2: 97% Temperature: 36.8 (C) / 98.2 (F) Weight: 210 lbs 05/02/2016 Blood Pressure 1: 154/74 Code : 8480-6 BMI: 41.0 Code : 63945-7 Heart Rate 1 : 99 bpm Height: 5' SpO2: 97% Temperature: 38.3 (C) / 100.9 (F) Weight: 210 lbs 04/11/2016 Blood Pressure 1: 122/72 Code : 8480-6 BMI: 41.1 Code : 26414-7 Heart Rate 1 : 62 bpm Height: 5' SpO2: 96% Weight: 210 lbs 8 oz 02/17/2016 Blood Pressure 1: 144/88 Code : 8480-6 BMI: 39.6 Code : 93798-9 Heart Rate 1 : 61 bpm Height: 5' SpO2: 95% Weight: 203 lbs 02/08/2016 Blood Pressure 1: 128/58 Code : 8480-6 BMI: 39.6 Code : 97809-6 Heart Rate 1 : 59 bpm Height: 5' SpO2: 95% Weight: 203 lbs 01/26/2016 Blood Pressure 1: 134/66 Code : 8480-6 BMI: 39.8 Code : 35451-5 Heart Rate 1 : 71 bpm Height: 5' SpO2: 98% Weight: 204 lbs 01/08/2016 Blood Pressure 1: 110/60 Code : 8480-6 Heart Rate 1: 70 bpm Height: Weight: 01/01/2016 Blood Pressure 1: 148/64 Code : 8480-6 BMI: 39.5 Code : 41740-4 Heart Rate 1 : 82 bpm Height: 5' SpO2: 93% Weight: 202 lbs 12/29/2015 Blood Pressure 1: 145/70 Code : 8480-6 BMI: 39.5 Code : 20073-0 Heart Rate 1 : 72 bpm Height: 5' SpO2: 96% Weight: 202 lbs 07/27/2015 Blood Pressure 1: 148/64 Code : 8480-6 BMI: 39.1 Code : 36896-7 Heart Rate 1 : 76 bpm Height: 5' SpO2: 97% Weight: 200 lbs 07/16/2015 Blood Pressure 1: 140/76 Code : 8480-6 BMI: 39.5 Code : 51603-7 Heart Rate 1 : 51 bpm Height: 5' SpO2: 91% Temperature: 36.4 (C) / 97.6 (F) Weight: 202 lbs 03/16/2015 Blood Pressure 1: 128/70 Code : 8480-6 BMI: 39.5 Code : 15866-7 Heart Rate 1 : 70 bpm Height: 5' SpO2: 94% Weight: 202 lbs 12/15/2014 Blood Pressure 1: 136/58 Code : 8480-6 BMI: 40.4 Code : 01933-3 Heart Rate 1 : 72 bpm Height: [...] data Encounters Encounter Performer Location Codes Date ([id number]) [id number] EST. 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 PATIENT, LEVEL III Diagnosis: Benign paroxysmal vertigo, bilateral[ICD10: H81.13] Adamaris Mccoy MD, [facility] CPT-4: 07154 02/14/2017 ([id number]) 05063 EST. 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 PATIENT, LEVEL IV Diagnosis: Essential (primary) hypertension[ICD10: I10] Diagnosis: Pneumonia due to other specified bacteria[ICD10: J15.8] Diagnosis: Cough[ICD10: R05] Diagnosis: Atrophy of thyroid (acquired)[ICD10: E03.4] Kylee cMcoy MD, [facility] CPT-4: 27222 08/08/2016 ([id number]) Miscellaneous no charge Diagnosis: Pneumonia due to other specified bacteria[ICD10: J15.8] Diagnosis: Dehydration[ICD10: E86.0] Adamaris Mccoy MD [facility] CPT-4: 14380 05/03/2016 03330 EST. PATIENT, LEVEL IV Diagnosis: Cough[ICD10: R05] Diagnosis: Pneumonia due to other specified bacteria[ICD10: J15.8] Adamaris Mccoy MD, [facility] CPT-4: 89170 05/02/2016 ([id number]) 88940 EST. PATIENT, LEVEL IV Diagnosis: Essential (primary) hypertension[ICD10: I10] Diagnosis: Atrophy of thyroid (acquired)[ICD10: E03.4] Diagnosis: Encounter for screening mammogram for malignant neoplasm of breast[ ICD10: Z12.31] Kylee Mccoy MD [facility] CPT-4: 38498 04/11/2016 10854 EST. PATIENT, LEVEL III Diagnosis: Encounter for removal of sutures[ICD10: Z48.02] Adamaris Mccoy MD, [facility] CPT-4: 94156 02/17/2016 ([id number]) 89824 EST. PATIENT, LEVEL III Diagnosis: Pneumonia due to other specified bacteria[ICD10: J15.8] Kylee Mccoy MD [facility] CPT-4: 95199 02/08/2016 ([id number]) 87009 EST. PATIENT, LEVEL IV Diagnosis: Hypothyroidism, unspecified[ICD10: E03.9] Diagnosis: Personal history of pneumonia (recurrent)[ICD10: Z87.01] Diagnosis: Gastro-esophageal reflux disease without esophagitis[ICD10: K21.9] Diagnosis: Essential (primary) hypertension[ICD10: I10] Kylee Mccoy MD, [facility] CPT-4: 01089 01/26/2016 47454 EST. PATIENT, LEVEL IV Diagnosis: Other malaise[ICD10: R53.81] Diagnosis: Other fatigue[ICD10: R53.83] Diagnosis: Weakness[ICD10: R53.1] Adamaris Mccoy MD, [facility] CPT-4: 74732 01/08/2016 98603 EST. PATIENT, LEVEL IV Diagnosis: Pneumonia, unspecified organism[ICD10: J18.9] Adamaris Mccoy MD, [facility] CPT-4: 57432 01/01/2016 65764 EST. PATIENT, LEVEL IV Diagnosis: Other allergic rhinitis[ICD10: J30.89] Diagnosis: Acute laryngopharyngitis[ICD10: J06.0] Diagnosis: Other acute sinusitis[ICD10: J01.80] Adamaris Mccoy MD, [facility] CPT-4: 52506 12/29/2015 98077 EST. PATIENT, LEVEL IV Diagnosis: Other allergic rhinitis[ICD10: J30.89] Diagnosis: Hypothyroidism, unspecified[ICD10: E03.9] Adamaris Mccoy MD, [facility] CPT-4: 44769 07/27/2015 ([id number]) 02722 EST. PATIENT, LEVEL III Diagnosis: Cough[ICD10: R05] Diagnosis: Pneumonia, unspecified organism[ICD10: J18.9] Rajwinder Mccoy MD, [facility] CPT-4: 50329 07/16/2015 ([id number]) 18132 EST. 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 07/10/2017 Patient Education: Patient Medication Summary Completed 07/10/2017 Care Plan: Comp Metabolic Pending 07/10/2017 Care Plan: Cbc With Differential Pending 07/10/2017 Care Plan: Tsh Pending 07/10/2017 Care Plan: Free T4 Pending 07/10/2017 Care Plan: Lipid Pending 07/10/2017 Visit Plan: BPPV - Benign Paroxysmal Positional Vertigo - discussed diagnosis with the patient, offered the pt the appropriate additional information in hand-out. Pt instructed in home exercises to help alleviate and prevent future recurrent episodes of vertigo. Pt informed that if symptoms worsen, call the office for further instructions/medication interventions. 02/14/2017 Appointment: Adamaris Spencer WPtel: [address] [place], [place] [id number] (15 min) Moderate 02/14/2017 Patient Education: Patient [...] care surrogate. 01/24/2017 App[facility]ment[facility] [phone] [id number] [facility] - Annual Wellness Visit 01/24/2017 Patient [...] starting Tramadol. 01/19/2017 [facility] [phone] [id number] ([facility] min) Moderate 01/19/2017 Patient Education: Patient [...] this illness. 08/08/2016 App[facility]ment: [facility] [phone] [id number] (15 min) Moderate 08/08/2016 Patient Education: Patient [...] this illness. 05/02/2016 Appointment: Adamaris Spencer WPtel: [phone] [id number] (15 min) Moderate 05/02/2016 Patient Education: [...] of control. 04/11/2016 Appointment: Kylee Mccoy WPtel: [phone] [facility] [id number] (15 min) Moderate 04/11/2016 Patient Education: Patient [...] acute concerns. 02/17/2016 Appointment: Rajwinder Isaac WPtel: [phone] [phone] (30 min) Complex 02/17/2016 Patient Education: Patient Medication Summary Completed 02/17/2016 Patient Education: Obesity Completed 02/17/2016 Visit Plan: punch biopsy skin lesion right center chest near clavicle pneumonia - left base - rx for zpack 02/08/2016 App[facility]ment[id number] [facility] 02/08/2016 Patient Education: Patient Medication [...] 01/26/2016 Care Plan: Referral Order SNOMED-CT : [id number] Pending 01/26/2016 Visit Plan: malaise and fatigue [...] treatment of this illness. 01/01/2016 App[facility]ment[phone] (30 min) Complex 01/01/2016 Patient Education: Patient [...] do not show improvement. 12/29/2015 Appointment: [phone] (15 min) Moderate 12/29/2015 Patient Education: Patient [...] illness. 07/16/2015 Appointment: Rajwinder Isaac WPtel: [phone] [phone] (15 min) Moderate 07/16/2015 Patient Education: Patient [...] of control. 03/16/2015 Appointment: Kylee Mccoy WPtel: [phone] [facility] [place] [place] (15 min) Moderate 03/16/2015 Patient Education: Patient [...] routine basis. 12/15/2014 Appointment: Kylee Mccoy WPtel: [phone] [facility] [place] [place] (S) New Patient 12/15/2014 Patient Education: Patient Medication Summary Completed 12/15/2014 Patient Education: Hypertension Completed 12/15/2014 Referral: Florencio Fuller Referral Completed Instructions Comment PUSH FLUIDS TONIGHT. GATORADE TO HELP REPLENISH THE ELECTROLYTES. ROTATE TYLENOL AND IBUPROFEN TO STAY ON TOP OF THE FEVER. 2 ANTIBIOTICS SENT TO [facility]. TAKE A PROBIOTIC WHILE ON THE [...] for acute treatment of this illness. Probiotic (Hitlab or Riboxx) over the counter while on the antibiotic [...] any other acute concerns. probiotic - like Riboxx or Apozy - take twice daily x 1 week. [...]
--- OUTSIDE RECORDS SUMMARY | 2018-01-17 06:18 | XMS REPORT | Continuity of Care Document ---
Author Author [facility] Organization [facility] Address Unknown Phone Unavailable Allergies Active Description Code Type Severity Reaction Onset Reported/Identified Relationship to Patient Clinical Status Yes hydrocodone [id number] Drug Allergy Unknown N/A 07/26/2010 Yes meperidine [id number] Drug Allergy Unknown N/A 07/26/2010 Medications There is no data. Problems Date Dx Coded Attending Type Code Diagnosis Diagnosed By 05/11/1615 JORDEN MORENO, MAHENDRA Tijerina Ot M17.12 UNILATERAL PRIMARY OSTEOARTHRITIS, LEFT 07/27/2010 Ot 244.9 07/27/2010 Ot 281.0 07/27/2010 Ot 327.23 07/27/2010 Ot 401.9 07/27/2010 Ot 715.96 07/27/2010 Ot V10.42 07/27/2010 Ot V15.3 07/27/2010 Ot V57.1 07/27/2010 Ot V58.69 10/06/2010 Ot 717.2 DERANG POST MED MENISCUS 10/06/2010 Ot 717.43 DERANG POST LAT MENISCUS 10/06/2010 Ot 717.7 CHONDROMALACIA PATELLAE 10/06/2010 Ot 733.92 CHONDROMALACIA 10/06/2010 Ot V57.1 PHYSICAL THERAPY NEC 08/08/2012 Ot 455.3 EXT HEMORRHOID W/O COMPL 08/08/2012 Ot V16.0 FAMILY HX-GI MALIGNANCY 08/08/2012 Ot V76.51 SCREEN MAL NEOP-COLON 03/30/2015 Ot 715.36 03/30/2015 Ot 717.3 03/30/2015 Ot 717.40 03/30/2015 Ot 717.3 03/30/2015 Ot 717.40 03/30/2015 Ot V72.63 03/30/2015 Ot V74.8 03/30/2015 Ot 717.3 03/30/2015 Ot 717.40 03/30/2015 Ot V64.3 03/30/2015 Ot V76.12 03/30/2015 Ot V76.12 03/30/2015 Ot V72.84 03/30/2015 AUGUSTA MORENO, LUPILLO Hanson Ot V76.12 03/30/2015 LUPILLO DERAS MD Ot V76.12 04/22/2015 AKOSUA MORENO, LUZ MARINA Escobar Ot Z12.31 08/06/2015 Ot R05 08/13/2015 Ot R05 01/04/2016 MISAEL JAIN [employer] Ot R06.00 DYSPNEA, UNSPECIFIED 01/26/2016 MISAEL JAIN [employer] Ot R06.00 DYSPNEA, UNSPECIFIED 02/05/2016 MISAEL JAIN [employer] Ot R06.00 DYSPNEA, UNSPECIFIED 03/01/2016 MINNA SERRATO DO Ot G47.33 OBSTRUCTIVE SLEEP APNEA (ADULT) (PEDIATR 03/02/2016 Ot 717.3 DERANG MED MENISCUS NEC 03/02/2016 Ot 717.40 DERANG LAT MENISCUS NOS 03/02/2016 Ot V64.3 NO PROC FOR REASONS NEC 03/02/2016 Ot V76.12 OTH SCREEN MAMMO-MALIGN NEOPLASM OF CHRISTINA 03/02/2016 Ot V76.12 OTH SCREEN MAMMO-MALIGN NEOPLASM OF CHRISTINA 03/02/2016 Ot V72.84 EXAM PRE- OPERATIVE NOS 03/02/2016 AUGUSTA MORENO, LUPILLO Hanson Ot V76.12 OTH SCREEN MAMMO-MALIGN NEOPLASM OF CHRISTINA 03/02/2016 LUPILLO DERAS MD Ot V76.12 OTH SCREEN MAMMO-MALIGN NEOPLASM OF [place]RISTINA 03/02/2016 AKOSUA MORENO, LUZ MARINA Escobar Ot Z12.31 ENCNTR SCREEN MAMMOGRAM FOR MALIGNANT NE 03/02/2016 Ot R05 COUGH 03/02/2016 MISAEL JAIN [employer] Ot R06.00 DYSPNEA, UNSPECIFIED 03/07/2016 MINNA SERRATO DO Ot J16.8 PNEUMONIA DUE TO OTHER SPECIFIED INFECTI 03/07/2016 MINNA SERRATO DO Ot R06.00 DYSPNEA, UNSPECIFIED 03/24/2016 MINNA SERRATO DO Ot J16.8 PNEUMONIA DUE TO OTHER SPECIFIED INFECTI 03/24/2016 MINNA SERRATO DO Ot R06.00 DYSPNEA, UNSPECIFIED 03/31/2016 MINNA SERRATO DO Ot J16.8 PNEUMONIA DUE TO OTHER SPECIFIED INFECTI 03/31/2016 AMAMINNA MOTT DO Ot R06.00 DYSPNEA, UNSPECIFIED 05/10/2016 MISAEL JAIN [employer] Ot E86.0 DEHYDRATION 05/10/2016 MISAEL JAIN [employer] Ot R11.0 NAUSEA 05/10/2016 MISAEL JAIN [employer] Ot R50.9 FEVER, UNSPECIFIED 05/11/2016 JENNIFER BROWN APRN Ot G47.33 OBSTRUCTIVE SLEEP APNEA (ADULT) (PEDIATR 05/11/2016 JENNIFER BROWN APRN Ot G47.33 OBSTRUCTIVE SLEEP APNEA (ADULT) (PEDIATR 05/18/2016 LUZ MARINA SOUTH MD Ot Z12.31 ENCNTR SCREEN MAMMOGRAM FOR MALIGNANT NE 05/18/2016 LUZ MARINA SOUTH MD Ot Z12.31 ENCNTR SCREEN MAMMOGRAM FOR MALIGNANT NE 05/19/2016 LUZ MARINA SOUTH MD Ot Z12.31 ENCNTR SCREEN MAMMOGRAM FOR MALIGNANT NE 06/10/2016 LUZ MARINA SOUTH MD Ot Z12.31 ENCNTR SCREEN MAMMOGRAM FOR MALIGNANT NE 06/20/2016 MISAEL JAIN [employer] Ot E86.0 DEHYDRATION 06/20/2016 MISAEL JAIN [employer] Ot R11.0 NAUSEA 06/20/2016 MISAEL JAIN [employer] Ot R50.9 FEVER, UNSPECIFIED 06/22/2016 MISAEL JAIN [employer] Ot E86.0 DEHYDRATION 06/22/2016 MISAEL JAIN [employer] Ot R11.0 NAUSEA 06/22/2016 MISAEL JAIN [employer] Ot R50.9 FEVER, UNSPECIFIED 08/19/2016 MISAEL JAIN [employer] Ot E86.0 DEHYDRATION 08/19/2016 MISAEL JAIN [employer] Ot R11.0 NAUSEA 08/19/2016 MISAEL JAIN [employer] Ot R50.9 FEVER, UNSPECIFIED 07/17/2017 LUZ MARINA SOUTH MD Ot Z12.31 ENCNTR SCREEN MAMMOGRAM FOR MALIGNANT NE 07/26/2017 LUZ MARINA SOUTH MD Ot Z12.31 ENCNTR SCREEN MAMMOGRAM FOR MALIGNANT NE 08/15/2017 LUZ MARINA SOUTH MD, Ot Z12.31 ENCNTR SCREEN MAMMOGRAM FOR MALIGNANT NE 10/02/2017 Ot V72.84 EXAM PRE- OPERATIVE NOS 10/02/2017 AUGUSTA MORENO, LUPILLO Hanson Ot V76.12 OTH SCREEN MAMMO-MALIGN NEOPLASM OF [place]RISTINA 10/02/2017 LUPILLO DERAS MD Ot V76.12 OTH SCREEN MAMMO-MALIGN NEOPLASM OF [place] 10/02/2017 LUZ MARINA SOUTH MD, Ot Z12.31 ENCNTR SCREEN MAMMOGRAM FOR MALIGNANT NE 10/02/2017 Ot R05 COUGH 10/02/2017 MISAEL JAIN APRN Ot R06.00 DYSPNEA, UNSPECIFIED 10/02/2017 MINNA SERRATO DO Ot J16.8 PNEUMONIA DUE TO OTHER SPECIFIED INFECTI 10/02/2017 MINNA SERRATO DO Ot R06.00 DYSPNEA, UNSPECIFIED 10/02/2017 LUZ MARINA SOUTH MD Ot Z12.31 ENCNTR SCREEN MAMMOGRAM FOR MALIGNANT NE 10/02/2017 MISAEL JAIN APRN Ot E86.0 DEHYDRATION 10/02/2017 MISAEL JAIN APRN Ot R11.0 NAUSEA 10/02/2017 MISAEL JAIN APRN Ot R50.9 FEVER, UNSPECIFIED 10/02/2017 LUZ MARINA SOUTH MD, Ot Z12.31 ENCNTR SCREEN MAMMOGRAM FOR MALIGNANT NE 10/09/2017 JORDEN MORENO, MAHENDRA Tijerina Ot M17.12 UNILATERAL PRIMARY OSTEOARTHRITIS, LEFT 10/09/2017 MAHENDRA LEONARDO MD Ot M17.12 UNILATERAL PRIMARY OSTEOARTHRITIS, LEFT 10/31/2017 MAHENDRA LEONARDO MD Ot M17.12 UNILATERAL PRIMARY OSTEOARTHRITIS, LEFT 11/08/2017 MAHENDRA LEONARDO MD, Ot M17.12 UNILATERAL PRIMARY OSTEOARTHRITIS, LEFT Procedures Code Description Performed By Performed On 77.08 METATAR/TAR SEQUESTREC 09/18/2009 83.88 OTHER PLASTIC OPS TENDON 09/18/2009 Results Test Result Range [id number] - 03/02/16 14:02 Immunoglobulin panel (IgG, IgM, IgA) serum 62 % 47-209 Automated blood complete blood count (hemogram) panel - 05/03/16 12:40 Blood leukocytes automated count (number/volume) 6.5 10*3/uL 4.3-11.0 Blood erythrocytes automated count (number/volume) 3.74 10*6/uL 4.35-5.85 Venous blood hemoglobin measurement (mass/volume) 11.6 g/dL 11.5-16.0 Blood hematocrit (volume fraction) 35 % 35-52 Automated erythrocyte mean corpuscular volume 95 [foz_us] 80-99 Automated erythrocyte mean corpuscular hemoglobin (mass per erythrocyte) 31 pg 25-34 Automated erythrocyte mean corpuscular hemoglobin concentration measurement ( mass/volume) 33 g/dL 32-36 Automated erythrocyte distribution width ratio 12.8 % 10.0-14.5 Automated blood platelet count (count/volume) 259 10*3/uL 130-400 Automated blood platelet mean volume measurement 9.1 [foz_us] 7.4-10.4 Influenza virus A and B antigen detection - 05/03/16 12:40 FLU RESULT NEGATIVE FOR INFLUENZA A AND B ANTIGENS BY [facility] Comprehensive metabolic panel - 05/03/16 12:40 Serum or plasma sodium measurement (moles/volume) 136 mmol/L 135-145 Serum or plasma potassium measurement (moles/volume) 3.8 mmol/L 3.6-5.0 Serum or plasma chloride measurement (moles/volume) 104 mmol/L 98-107 Carbon dioxide 24 mmol/L 21-32 Serum or plasma anion gap determination (moles/volume) 8 mmol/L 5-14 Serum or plasma urea nitrogen measurement (mass/volume) 17 mg/dL 7-18 Serum or plasma creatinine measurement (mass/volume) 1.14 mg/dL 0.60-1.30 Serum or plasma urea nitrogen/creatinine mass ratio 15 NRG Serum or plasma creatinine measurement with calculation of estimated glomerular filtration rate 46 NRG Serum or plasma glucose measurement (mass/volume) 108 mg/dL 70-105 Serum or plasma calcium measurement (mass/volume) 9.2 mg/dL 8.5-10.1 Serum or plasma total bilirubin measurement (mass/volume) 0.4 mg/dL 0.1-1.0 Serum or plasma alkaline phosphatase measurement (enzymatic activity/volume) 61 U/L 40-136 Serum or plasma aspartate aminotransferase measurement (enzymatic activity/ volume) 22 U/L 5-34 Serum or plasma alanine aminotransferase measurement (enzymatic activity/volume ) 18 U/L 0-55 Serum or plasma protein measurement (mass/volume) 6.0 g/dL 6.4-8.2 Serum or plasma albumin measurement (mass/volume) 3.6 g/dL 3.2-4.5 Complete urinalysis with reflex to culture - 05/03/16 14:15 Urine color determination YELLOW NRG Urine clarity determination SLIGHTLY CLOUDY NRG Urine pH measurement by test strip 5 5-9 Specific gravity of urine by test strip 1.020 1.016- 1.022 Urine protein assay by test strip, semi-quantitative 1+ NEGATIVE Urine glucose detection by automated test strip NEGATIVE NEGATIVE Erythrocytes detection in urine sediment by light microscopy 2+ NEGATIVE Urine ketones detection by automated test strip 1+ NEGATIVE Urine nitrite detection by test strip NEGATIVE NEGATIVE Urine total bilirubin detection by test strip NEGATIVE NEGATIVE Urine urobilinogen measurement by automated test strip (mass/volume) NORMAL NORMAL Urine leukocyte esterase detection by dipstick 3+ NEGATIVE Automated urine sediment erythrocyte count by microscopy (number/high power field) NONE NRG Automated urine sediment leukocyte count by microscopy (number/high power field ) > [HPF] NRG Bacteria detection in urine sediment by light microscopy FEW NRG Squamous epithelial cells detection in urine sediment by light microscopy 10-25 NRG Crystals detection in urine sediment by light microscopy NONE NRG Casts detection in urine sediment by light microscopy NONE NRG Mucus detection in urine sediment by light microscopy NEGATIVE NRG Complete urinalysis with reflex to culture YES NRG Bacterial urine culture - 05/03/16 14:15 URINE CULTURE RESULTS <10,000/ML NRG Encounters ACCT No. Visit Date/Time Discharge Status Pt. Type Provider Facility Loc./Unit Complaint [id number] 11/07/2017 15:00:00 11/08/2017 16:16:00 DIS Outpatient MAHENDRA LEONARDO MD [facility] REHAB OA L KNEE [id number] 07/25/2017 11:03:00 07/25/2017 23:59:59 CLS Outpatient LUZ MARINA SOUTH MD [facility] RAD SCREENING [id number] 05/17/2016 11:43:00 05/17/2016 23:59:59 CLS Outpatient LUZ MARINA SOUTH MD [facility] RAD SCREENING [id number] 05/10/2016 20:00:00 05/11/2016 06:45:00 DIS Outpatient JENNIFER BROWN APRN [facility] SLEEP G47.31, HYPERSOMNIA,SLEEP DISTURBANCE UNSPECIFIED [id number] 05/03/2016 12:16:00 05/03/2016 23:59:59 CLS Outpatient MISAEL JAIN [employer] [facility] SDC FEVER,DEHYDRATION [id number] 03/02/2016 12:40:00 03/02/2016 23:59:59 CLS Outpatient MINNA SERRATO DO [facility] RT PNEUMONIA,DYSPNEA, OBSERVED APNEA,EDS [id number] 03/01/2016 11:12:00 03/01/2016 11:30:00 DIS Outpatient MINNA SERRATO DO [facility] SLEEP OBSERVED APNEA, EDS [id number] 01/01/2016 10:36:00 01/01/2016 23:59:59 CLS Outpatient MISAEL JAIN [employer] [facility] RAD DYSPNEA [id number] 08/19/2015 09:28:00 08/19/2015 23:59:59 CLS Outpatient RAO WOODRUFF [facility] QUICK [id number] 03/30/2015 09:47:00 03/30/2015 23:59:59 CLS Outpatient LUZ MARINA SOUTH MD [facility] RAD SCREENING [id number] 02/03/2014 11:20:00 02/03/2014 23:59:59 CLS Outpatient LUPILLO DERAS MD [facility] RAD SCREENING [id number] 01/08/2013 11:36:00 01/08/2013 23:59:59 CLS Outpatient LUPILLO DERAS MD [facility] RAD SCREENING [id number] 01/17/2018 08:45:00 WILLIAM LEONARDO MD, MAHENDRA Tijerina LEFT KNEE OSTEOARTHRITIS [id number] 07/16/2015 14:52:00 Document Registration [id number] 03/30/2015 09:47:00 Document Registration [id number] 03/30/2015 09:46:00 Document Registration [id number] 08/08/2012 08:25:00 Document Registration [id number] 08/01/2012 07:18:00 Document Registration [id number] 01/06/2012 12:59:00 Document Registration [id number] 01/04/2011 11:19:00 Document Registration [id number] 10/06/2010 07:41:00 Document Registration [id number] 09/15/2010 05:39:00 Document Registration [id number] 09/08/2010 09:23:00 Document Registration [id number] 08/02/2010 13:08:00 Document Registration [id number] 07/26/2010 12:35:00 Document Registration [id number] 02/14/2017 08:59:29 02/14/2017 23:59:59 [facility] Outpatient
[2018-01-17] MEDS ORDERED: ROPIVACAINE 5MG/ML 30ML VIAL ONE (06:36)
[2018-01-17] MEDS ORDERED: fentaNYL INJECTION 100 MCG/2 ML AMP ONE ×2 (06:37→07:57)
[2018-01-17] MEDS ORDERED: MIDAZOLAM 2 MG/2 ML (VERSED) VIAL ONE (06:37)
[2018-01-17] MEDS ORDERED: FURO-125 PO (06:44)
[2018-01-17] MEDS: LACTATED RINGERS 1,000 ML IV PRN ×2 (06:45→08:24)
[2018-01-17] MEDS ORDERED: proPOfol 200 MG/20 ML (DIPRIVAN) VIAL IV ONE (07:06)
[2018-01-17] MEDS ORDERED: LIDOCAINE PF 2% 5 ML (XYLOCAINE) VIAL ONE (07:06)
[2018-01-17] MEDS ORDERED: DEXAMETHASONE 10 MG/ML (DECADRON) 1 ML VIAL ONE (07:06)
[2018-01-17] MEDS ORDERED: ONDANSETRON 4 MG/2 ML (SDV) Z0FRAN ONE (07:06)
[2018-01-17] MEDS ORDERED: SEVOFLURANE (ULTANE) 15 ML INHAL SOLN ONE ×7 (07:07→09:14)
--- NOTE | 2018-01-17 07:28 | Progress Note-Pre Operative ---
Pre-Operative Progress Note H&P Reviewed The H&P was reviewed, patient examined and no changes noted. Date Seen by Provider: Jan 17, 2018 Time Seen by Provider: 07:11 Date H&P Reviewed: Jan 17, 2018 Time H&P Reviewed: 07:11 Pre-Operative Diagnosis: left knee primary osteoarthritis MAHENDRA LEONARDO MD Jan 17, 2018 07:27
--- NOTE | 2018-01-17 07:29 | Progress Note-Pre Operative ---
Pre-Operative Progress Note H&P Reviewed The H&P was reviewed, patient examined and no changes noted. Date Seen by Provider: Jan 17, 2018 Time Seen by Provider: 07:18 Date H&P Reviewed: Jan 17, 2018 Time H&P Reviewed: 07:11 Pre-Operative Diagnosis: left knee primary osteoarthritis MAHENDRA LEONARDO MD Jan 17, 2018 07:29
[2018-01-17] MEDS ORDERED: morphine PCA 30 MG/30 ML VIAL IV PRN ×2 (07:30→11:15)
[2018-01-17] MEDS ORDERED: diphenhydrAMINE 50 MG/ML INJ (BENADRYL) IVP PRN (07:30)
[2018-01-17] MEDS ORDERED: ONDANSETRON 4 MG/2 ML (SDV) Z0FRAN IVP PRN ×2 (07:30→09:30)
[2018-01-17] MEDS ORDERED: ACETAMINOPHEN 325 MG TABLET PO PRN (07:30)
--- NOTE | 2018-01-17 07:30 | Progress Note-Post Operative ---
Post-Operative Progess Note Surgeon (s)/Drip Box Tender (s) Surgeon MAHENDRA LEONARDO MD Drip Box Tender: Hood Maria Pre-Operative Diagnosis left knee primary osteoarthritis Post-Operative Diagnosis left knee primary osteoarthritis Procedure & Operative Findings Date of Procedure 01/17/18 Procedure Performed/Findings left total knee arthroplasty Anesthesia Type GETA Estimated Blood Loss Estimated blood loss (mL): minimal Specimens/Packing Specimens Removed none Packing: none MAHENDRA LEONARDO MD Jan 17, 2018 07:29
[2018-01-17] MEDS ORDERED: OXYC-197 PO (07:31)
--- NOTE | 2018-01-17 07:34 | D/C HH Face to Face Order ---
D/C Face to Face Orders Instructions for Patient Patient Instructions/FollowUp: three weeks Physician to follow Patient: three weeks Discharge Diet for Home: Regular Diet Patient Data-Allergies,Ht & Wt Patient Allergies: Coded Allergies: hydrocodone (Unverified Allergy, Intermediate, HALLUCINATIONS, 01/09/18) meperidine (Unverified Allergy, Intermediate, HALLUCINATIONS, 01/09/18) Height (Feet): 5 Height (Inches): 0.00 Weight (Pounds): 207 Weight (Ounces): 5.0 Home Health Need/Face to Face Date of Face to Face: Jan 17, 2018 Clinical Findings: Instability, Muscle weakness, Pain with ambulation, Unsteady gait I have seen Pt [id number]: Yes Discharged To: Home Diagnosis/Conditions: left knee primary osteoarthritis Patient is Homebound due to: Shreyas fall risk due to instabilty, Muscle weakness , Pain w/ambulation Homebound Status Due to the above stated illness, injury or surgical procedure (medical condition or diagnosis) and associated clinical findings, the patient is homebound because of his/her inability to leave home except with aid of a supportive device and/or person AND leaving the home requires a considerable and taxing effort or is medically contraindicated. Pt req the following assistanc: Walker Home Health Nursing Orders Home Health Services Order: Physical Therapy-Evaluate & Treat Home Health Infusion Therapy Line Start Date: Jan 17, 2018 Line Start Time: 0645 Line Type: Peripheral IV Site Location: Hand Therapy Orders Therapy Orders: Physical Therapy, PT to assess for OT Therapy Specific Orders: Eval assistive deivces, Gait training, Increase strength/endurance, Provider maintenance therapy (DC left knee alfa and apply steri strips 01/31/18), Restore ROM Certify Stmt I certify that this patient is under my care and that I, a nurse practitioner or a physician; a regulatory assistant working with me, had a face to face encounter that - meets the physician face to face encounter requirements with this patient as dated. MAHENDRA LEONARDO MD Jan 17, 2018 07:34
[2018-01-17] MEDS ORDERED: INTRA-ARTICULAR IU ONE ×4 (07:45)
[2018-01-17] MEDS ORDERED: LABETALOL HCL 20 MG/4 ML VIAL ONE (07:59)
[2018-01-17] MEDS ORDERED: fentaNYL INJECTION 100 MCG/2 ML AMP IVP PRN (09:30)
[2018-01-17] MEDS ORDERED: HYDROmorphone 1 MG/ML (DILAUDID) 1 ML SYRINGE ONE (09:33)
[2018-01-17] MEDS: HYDROmorphone 1 MG/ML (DILAUDID) 1 ML SYRINGE IV PRN ×2 (09:36→09:47)
[2018-01-17 10:20] VITALS: BP_SYST 182; BP_DIAS 80; BP_DIAS 86
--- NOTE | 2018-01-17 10:20 | Diagnostic Imaging Report ---
Indication: Postop left knee. Time of exam: 9:25 AM Two views of the left knee demonstrate postop changes of total knee arthroplasty. The prosthetic elements are in good position. No fracture loosening is seen. There are overlying skin alfa. Impression: Satisfactory postop appearance of the left knee. Dictated by: Dictated on workstation # [id number]
--- NOTE | 2018-01-17 10:26 | Progress Note-Standard ---
Standard Progress Note Progress Notes/Assess & Plan Date Seen by Provider: Jan 17, 2018 Time Seen by Provider: 10:15 Progress/Assessment & Plan post op check no complaints. denies paresthesia radiographs--HW well positioned without fracture LLE--intact DF and PF of toes and ankle.2 plus DP pulse with brisk cap refill. sensation intact throughout s/p LTKA mobilize as able MAHENDRA LEONARDO MD Jan 17, 2018 10:26
[2018-01-17] MEDS ORDERED: morphine PCA 30 MG/30 ML VIAL IV ONE (11:09)
[2018-01-17] MEDS: NS IV 1000 ML 1,000 ML IV SCH (11:15)
[2018-01-17 12:00] VITALS: BP 162/70
[2018-01-17] MEDS: ASPIRIN E.C. 81 MG (ECOTRIN) TAB PO SCH ×2 (12:32→13:22)
[2018-01-17] MEDS: SENNA W/DOCUSATE (SENOKOT S) TABLET PO SCH ×2 (12:32→20:47)
--- NOTE | 2018-01-17 14:03 | Physical Therapy Evaluation ---
PT Evaluation-General Medical Diagnosis Admission Date Jan 17, 2018 at 06:00 Medical Diagnosis: left TKA Onset Date: Jan 17, 2018 Therapy Diagnosis Therapy Diagnosis: impaired mobility, strength, endurance, ROM Height/Weight Height (Feet): 5 Height (Inches): 0.00 Weight (Pounds): 207 Weight (Ounces): 5.0 Precautions Precautions/Isolations: Fall Prevention, Standard Precautions Weight Bear Status Right Lower Extremity: Right Weight Bearing/Tolerated Left Lower Extremity: Left Weight Bearing/Tolerated Referral Physician: Hood Maria Reason for Referral: Evaluation/Treatment Medical History Pertinent Medical History: HTN, Hypothroidism Additional Medical History sleep apnea, B12 deficiency, pneumonia, surg (appendectomy, tonsillectomy, hysterectomy, bilateral knee arthroscopy, cholecystectomy, foot, cataracts) Reviewed History: Yes Social History Home: Single Level Current Living Status: Alone Entry Into Home: Stairs With Railing PT Steps Into Home: 5 Prior/Core FIM Prior Level of Function Functional [place] Measure 0=Not Assessed/NA 4=Minimal Assistance 1=Total Assistance 5=Supervision or Setup 2=Maximal Assistance 6=Modified [place] 3=Moderate Assistance 7=Complete [place] Bed Mobility: 7 Transfers (B,C,W/C) (FIM): 7 Gait: 7 PT Evaluation-Current Subjective Patient in bed pre tx, agrees to PT, has pain of 7/10 in left knee. Pt/Family Goals to be independent at home Objective Patient Orientation: Person, Place, Situation Attachments: SCD's, Oxygen, Polar Pack, IV ROM/Strength ROM Lower Extremities left knee flexion 60 degrees, extension +5 degrees Strength Lower Extremities NT Neuromuscular (Tone, Coordination, Reflexes) NT Sensory Vision: Wears Glasses Hearing: Functional Sensation Right Lower Extremit: Intact Sensation Left Lower Extremity: Intact Transfers Functional [place] Measure 0=Not Assessed/NA 4=Minimal Assistance 1=Total Assistance 5=Supervision or Setup 2=Maximal Assistance 6=Modified [place] 3=Moderate Assistance 7=Complete [place] Transfers (B, C, W/C) (FIM): 4 Scootin Rollin Supine to/from Sit: 4 Sit to/from Stand: 4 Patient needs min assist for supine <-> sit, CGA for sit to stand, cues for safety and positioning. Gait Mode of Locomotion: Walk Anticipated Mode of Locomotion: Walk Gait (FIM): 1 Distance: 3' Gait Level of Assist: 4 Gait Persons Needed: 1 Gait Assistive Device: FWW Comments/Gait Description Patient ambulated several feet to the right to the head of the bed with CGA and a rolling walker. Patient was not able to bear much weight on her left leg and was a little nauseated. Balance Sitting Static: Normal Sitting Dynamic: Normal Standing Static: Fair Standing Dynamic: Fair Treatment TKA protocol on left leg x10 (AP, QS, HS, SAQ, SLR), CPM donned and set to 60/- 2. Patient in bed post tx with nurse call, family in room, phone, tray, SCD's on, polar care on. Assessment/Needs Patient has impaired mobility, endurance, strength, ROM post left TKA. Rehab Potential: Fair PT Short Term Goals Short Term Goals Time Frame: Jan 24, 2018 Transfers (B,C,W/C) (FIM): 5 Gait (FIM): 2 Gait Distance Comment: 50' Gait Level of Assist: 5 Gait Assistive Device: FWW PT Plan Problem List Problem List: Activity Tolerance, Functional Strength, Safety, Balance, Gait, Transfer, Bed Mobility, ROM Treatment/Plan Treatment Plan: Continue Plan of Care Treatment Plan: Bed Mobility, Education, Functional Activity Maty, Functional Strength, Gait, Safety, Therapeutic Exercise, Transfers Treatment Duration: Jan 24, 2018 Frequency: At least 5 of 7 days/Wk (IRF) Estimated Hrs Per Day: 1.5 hours per day Patient and/or Family Agrees t: Yes Safety Risks/Education Patient Education: Gait Training, Transfer Techniques, Correct Positioning, Safety Issues Teaching Recipient: Patient Teaching Methods: Demonstration, Discussion Response to Teaching: Reinforcement Needed Discharge Recommendations Plan Patient will perform bed mobility and transfer training, balance and endurance training, functional strengthening, stair training, gait training, and education , to improve functional mobility and independence at home. Therapy D/C Recommendations: Acute Rehab, Home w/ Family Support Time/GCodes Time In: 1310 Time Out: 1335 Total Billed Treatment Time: 25 Total Billed Treatment 1 visit HANK 15' GT 10' MARGARETH FRANCO PT Jan 17, 2018 14:03
--- NOTE | 2018-01-17 14:48 | OPERATIVE REPORT ---
DATE OF SERVICE: 01/17/2018 PREOPERATIVE DIAGNOSIS: Left knee primary osteoarthritis. POSTOPERATIVE DIAGNOSIS: Left knee primary osteoarthritis. PROCEDURE: Left total knee arthroplasty. SURGEON: Cornell Leonardo MD. CLOTH CUTTING MACHINE OPERATOR: Hood Maria, who assisted throughout the procedure and closed the incision. ANESTHESIA: General endotracheal by En Lopez CRNA. TOURNIQUET TIME: Approximately 70 minutes at 300 mmHg. ESTIMATED BLOOD LOSS: Minimal. DRAINS: None. COMPLICATIONS: None. POSTOPERATIVE PLAN: Routine protocol. The patient was transferred to the recovery room awake and stable condition. STATE OF MEDICAL NECESSITY: The patient is an 82-year-old female with the complaints of progressively worsening left knee pain and activity limitations. Radiographs revealed severe medial and patellofemoral arthrosis. She has undergone treatment with injections, anti-inflammatories and activity modifications, but due to progressive symptoms and marked functional impairment, the patient elected to proceed with surgical intervention. DESCRIPTION OF PROCEDURE: After the risks and benefits of procedure were discussed and questions were answered, an informed consent was signed and placed on the chart. The operative site was confirmed in the preoperative holding area initialed by the surgeon. The patient was then transported to the operating room and after adequate levels of general endotracheal anesthetic were obtained, a timeout was called confirming the operative site. The left lower extremity was then prepped and draped in the usual sterile fashion with the leg elevated and the knee flexed. Tourniquet was inflated to 300 mmHg. A standard anterior approach was utilized. Hemostasis was obtained with cautery. Medial parapatellar arthrotomy was performed leaving 1 cm cuff on the patella for later reattachment. A portion of the fat pad was resected. A subperiosteal release was performed on the proximal medial tibia being careful to stay on the bony surface. The ACL was resected. The intramedullary guide was then passed into the distal femur and up into the canal, the distal cutting block was placed and the distal cut was made. The femur was sized to a size 3 and the 3 cutting block was placed parallel to the epicondylar axis. The cuts were then made from posterior to anterior. The trial was then placed and trochlear cut was made. A subperiosteal release was then carefully performed on the posterior distal femur, being careful to stay on the bony surface. The intramedullary guide was then passed into the tibia. The cutting block was placed and the drop omer transected the intermalleolar axis. The cut was made. The three baseplate was positioned and again the drop omer transected the intermalleolar access. The drill and keel punch were used. The trials were inserted with a 10 mm insert. The patella was then prepared using the free hand technique by resecting 10 mm off the undersurface. The peg guide was placed and the peg holes were drilled. A 32 trial was placed. Full extension was easily obtained and 120 degrees of flexion with gravity was easily obtained. The patella tracked well. There was no anterior/posterior or medial/lateral laxity in flexion or extension. The trials were removed. The joint was irrigated with pulse lavage. The periarticular block was placed in the posterior capsule, medial and lateral retinaculum and extensor mechanism and subcutaneous tissue. The bone ends were irrigated and dried. The tibial baseplate was cemented in its position and excessive cement was removed. The superior surface was irrigated and dried and the polyethylene insert was placed. The distal femur was irrigated and dried. The femoral prosthesis was cemented in position. Excessive cement was removed. The knee was brought in full extension until the cement had cured. The undersurface of the patella was irrigated and dried. The patellar button was cemented in position. Excessive cement was removed. The joint was irrigated with pulse lavage. Once the cement had cured, the knee was taken through a range of motion. Full extension was easily obtained, 120s degrees of flexion, the gravity was easily obtained. The patella tracked well. There was no anterior/posterior or medial/lateral laxity in flexion or extension. The joint was copiously irrigated. The arthrotomy was closed with #2 Tevdek in [id number] interrupted fashion. The knee was flexed and the repair was stable with a well tracking patella. The subcutaneous tissues were irrigated with a pulse lavage using a total of 6 liters throughout the procedure. A 0 Vicryl was used for deep subcutaneous tissue, 2-0 Vicryl for the superficial subcutaneous tissue, alfa used on the skin. A soft dressing was applied. The tourniquet was deflated and the patient was transferred to the recovery room awake and in stable condition. 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
[2018-01-17] MEDS: CEFUROXIME INJECTION 750 MG in NS (IVPB) 50 ML IV SCH (15:15)
[2018-01-17 16:00] VITALS: BP 165/71
[2018-01-17 20:00] VITALS: BP 149/67
[2018-01-18] VITALS: BP 161/70
[2018-01-18] MEDS: CEFUROXIME INJECTION 750 MG in NS (IVPB) 50 ML IV SCH (00:11)
[2018-01-18] MEDS: NS IV 1000 ML 1,000 ML IV SCH ×3 (00:12→22:08)
[2018-01-18] MEDS: oxyCODONE/APAP 5/325MG (PERCOCET 5) TABLET PO PRN ×5 (01:47→22:02)
[2018-01-18 03:45] VITALS: BP 142/62
[2018-01-18 06:12] LABS: HEMOGLOBIN 8.5 G/DL (11.5-16.0)
[2018-01-18] MEDS: ENOXAPARIN 30 MG/0.3 ML (LOVENOX) SYR SC SCH ×2 (06:46→18:54)
[2018-01-18] MEDS: MULTIVIT W/MINERALS TAB (THERAGRAN M) PO SCH (06:46)
[2018-01-18 08:00] VITALS: BP 150/66
[2018-01-18] MEDS ORDERED: diphenhydrAMINE 25 MG TAB (BENADRYL) PO PRN ×2 (08:00→12:15)
--- NOTE | 2018-01-18 08:00 | Progress Note-Standard ---
Standard Progress Note Progress Notes/Assess & Plan Date Seen by Provider: Jan 18, 2018 Time Seen by Provider: 07:59 Progress/Assessment & Plan post op check no complaints. denies paresthesia radiographs--HW well positioned without fracture LLE--intact DF and PF of toes and ankle.2 plus DP pulse with brisk cap refill. sensation intact throughout s/p LTKA mobilize as able Final Diagnosis No complaints Vital Signs Date Time Temp Pulse Resp B/P (MAP) Pulse Ox O2 Delivery O2 Flow Rate FiO2 01/18/18 03:45 97.7 75 16 142/62 (88) 96 NIV CPAP 2.00 01/18/18 00:00 97.8 71 18 161/70 (100) 98 NIV CPAP 2.00 01/17/18 20:15 Nasal Cannula 2.00 01/17/18 20:00 97.1 76 16 149/67 (94) 98 Nasal Cannula 2.00 01/17/18 19:34 18 01/17/18 16:00 97.7 88 18 165/71 (102) 97 Nasal Cannula 2.00 01/17/18 15:42 95 Nasal Cannula 2.00 01/17/18 12:00 97.5 78 20 162/70 (100) 94 Nasal Cannula 2.00 01/17/18 11:21 18 01/17/18 11:21 18 01/17/18 10:20 95.9 73 20 182/86 (118) 95 Nasal Cannula 2.00 01/17/18 10:20 95 Nasal Cannula 2.00 I & O 01/18/18 07:00 Intake Total 2745 ml Output Total 1925 ml Balance 820 ml Laboratory Tests Test 01/18/18 06:00 Range/Units Hemoglobin 8.5 L 11.5-16.0 G/DL Hematocrit 26 L 35-52 % LLE--dressing intact. NVI distally. No calf tenderness s/p LTKA mobilize IRF when qualifies MAHENDRA LEONARDO MD Jan 18, 2018 08:00
--- NOTE | 2018-01-18 09:00 | Consultation ---
History of Present Illness History of Present Illness Patient Consulted On(anna/time) 01/18/18 09:00 Allergies and Home Medications Allergies Coded Allergies: hydrocodone (Unverified Allergy, Intermediate, HALLUCINATIONS, 01/09/18) meperidine (Unverified Allergy, Intermediate, HALLUCINATIONS, 01/09/18) Home Medications Cholecalciferol (Vitamin D3) 5,000 Unit Capsule, 5,000 UNIT PO DAILY, (Reported) Cyanocobalamin 1,000 Mcg/Ml Inj, 1,000 MCG IM EVERY 2 WEEKS, (Reported) Cyanocobalamin (Vitamin B-12) 1,000 Mcg Capsule, 1,000 MCG PO DAILY, (Reported) Furosemide 20 Mg Tablet, 20 MG PO PRN, (Reported) Levothyroxine Sodium 112 Mcg Tablet, 112 MCG PO DAILY, (Reported) Losartan/Hydrochlorothiazide 1 Each Tablet, 1 EACH PO DAILY, (Reported) Oxybutynin Chloride 5 Mg Tablet, 5 MG PO BID, (Reported) Oxycodone HCl/Acetaminophen 1 Each Tablet, 1 EACH PO Q4H Prescribed by: MAHENDRA LEONARDO on 01/17/18 0731 Past Dvsshpc-Gqroln-Mruiez Hx Patient Social History Alcohol Use: Denies Use Recreational Drug Use: No Smoking Status: Never a Smoker Recent Foreign Travel: No Contact w/Someone Who Travel: No Recent Infectious Disease Expo: No Recent Hopitalizations: No Immunizations Up To Date PED Vaccines UTD: No Date of Pneumonia Vaccine: Jan 15, 2015 Seasonal Allergies Seasonal Allergies: No Past Medical History Surgeries: Yes (FOOT SURGERY, EYE SURGERY (DETATCED RETINA), CATARACTS) Respiratory: Yes (HX PNEUMONIA ET BRONCHITIS) Sleep Apnea Currently Using CPAP: Yes (O2 2L AT NIGHT WITH CPAP) Cardiac: Yes Neurological: No Reproductive Disorders: Yes (CANCER OF UTERUS) Sexually Transmitted Disease: No HIV/AIDS: No Genitourinary: No Gastrointestinal: Yes Irritable Bowel Musculoskeletal: Yes Arthritis Endocrine: Yes HEENT: Yes (GLASSES, HX DETATCHED RETINA) Cancer: Yes Uterine What Type of Treatment Did You: Surgical Intervention Psychosocial: Yes (HX DEPRESSION) Depression Integumentary: No Blood Disorders: Yes (HX ANEMIA) Adverse Reaction/Blood Tranf: No (N/A) Family Medical History Asthma in father 19 FATHER FH: bladder cancer G8 SISTER FH: colon cancer G8 BROTHER FH: emphysema 19 FATHER FH: heart attack 19 FATHER FH: stroke 19 MOTHER ( frome stroke) FH: uterine cancer G8 SISTER Physical Exam-General Problems Physical Exam Vital Signs Vital Signs - First Documented 01/17/18 06:15 Temp 97.7 Pulse 70 Resp 18 B/P (MAP) 147/58 (87) Pulse Ox 95 O2 Delivery Room Air Capillary Refill : Less Than 3 Seconds Clinical Quality Measures DVT/VTE Risk/Contraindication: Risk Factor Score Per Nursin RFS Level Per Nursing on Admit: 4+=Very High LUZ MARINA SOUTH MD Jan 18, 2018 09:00
--- NOTE | 2018-01-18 09:43 | Physical Therapy Daily Note ---
PT Daily Note-Current Subjective Patient agrees to PT. She reports she is itching. RN aware. Pain Numeric Pain Scale: 8 Location: Left Location Body Site: Knee Pain Description: Acute Mental Status Patient Orientation: Normal For Age Attachments: Polar Pack, IV Transfers Functional [place] Measure 0=Not Assessed/NA 4=Minimal Assistance 1=Total Assistance 5=Supervision or Setup 2=Maximal Assistance 6=Modified [place] 3=Moderate Assistance 7=Complete IndependenceIRFPAI Quality Coding Scale 6 Independent with activity with or without an assistive device 5 Patient requires set up or clean up by helper. Patient completes activity by themselves 4 Supervision or touching assist (CGA). [place] provide cues , steadying assist 3 The helper provides less than half the effort to complete the activity 2 The helper provides more than half the effort to complete the activity 1 Dependent. The helper does all the effort to complete an activity 7 Patient refused to complete or attempt activity 9 The patient did not perform the activity before the current illness or injury 88 Not attempted due to Medical conditions or safety concerns Transfers (B, C, W/C) (FIM): 5 Scootin Rollin Supine to/from Sit: 5 Sit to/from Stand: 5 Bed to/from Chair: 5 patient toilets self without difficulty in restroom Weight Bearing Right Lower Extremity: Right Weight Bearing/Tolerated Left Lower Extremity: Left Weight Bearing/Tolerated Gait Training Gait (FIM): 5 Distance (FIM): 3=150 ft Distance: 190' Gait Level of Assist: 5 Gait Assistive Device: FWW slow, reciprocal pattern with FWW Exercises Supine Ex: Ankle pumps, Quad Set, Heel Slides, Straight leg raise Supine Reps: 10 (2 sets) Seated Therapy Exercises: Ankle pumps, Long arc quads Seated Reps: 15 (2 sets) Assessment Patient progressing with treatment plan. PT to increase activity as tolerated by patient. PT Short Term Goals Short Term Goals Time Frame: Jan 24, 2018 Transfers (B,C,W/C) (FIM): 5 Gait (FIM): 2 Gait Distance Comment: 50' Gait Level of Assist: 5 Gait Assistive Device: FWW PT Plan Treatment/Plan Treatment Plan: Continue Plan of Care Treatment Plan: Bed Mobility, Education, Functional Activity Maty, Functional Strength, Gait, Safety, Therapeutic Exercise, Transfers Treatment Duration: Jan 24, 2018 Frequency: At least 5 of 7 days/Wk (IRF) Estimated Hrs Per Day: 1.5 hours per day Patient and/or Family Agrees t: Yes Time/GCodes Time In: 820 Time Out: 900 Total Billed Treatment Time: 40 Total Billed Treatment 1 visit EX x 2 25 min GT 15 min SAWYER FRANZ PT Jan 18, 2018 09:43
[2018-01-18] MEDS: ASPIRIN E.C. 81 MG (ECOTRIN) TAB PO SCH (10:02)
[2018-01-18] MEDS: SENNA W/DOCUSATE (SENOKOT S) TABLET PO SCH ×2 (10:02→21:45)
[2018-01-18] MEDS: DICLOFENAC 1% GEL 100 GM (VOLTAREN) TUBE TOP SCH ×4 (10:18→21:46)
[2018-01-18] MEDS: LEVOTHYROXINE 112 MCG (LEVOTHROID) TAB PO SCH (10:18)
[2018-01-18] MEDS: LOSARTAN 100 MG (COZAAR) TABLET PO SCH (10:19)
[2018-01-18] MEDS: HYDROCHLOROTHIAZIDE 12.5 MG (HCTZ) CAP PO SCH (10:20)
[2018-01-18] MEDS: OXYBUTYNIN (DITROPAN) 5 MG TAB PO SCH ×2 (10:29→21:45)
[2018-01-18 12:00] VITALS: BP 145/63
[2018-01-18] MEDS ORDERED: LORATADINE (CLARITIN) 10 MG TAB PO NR (12:00)
[2018-01-18] MEDS ORDERED: diphenhydrAMINE 50 MG/ML INJ (BENADRYL) IVP NR (12:00)
[2018-01-18] MEDS ORDERED: FAMOTIDINE 20 MG (PEPCID) TABLET PO NR (12:00)
--- NOTE | 2018-01-18 13:35 | Anesthesia-General Post-Op ---
General Patient Condition Mental Status/LOC: Same as Preop Cardiovascular: Satisfactory Nausea/Vomiting: Absent Respiratory: Satisfactory Pain: Controlled Complications: Absent Post Op Complications Complications None Follow Up Care/Instructions Patient Instructions None needed. Anesthesia/Patient Condition Patient Condition Patient is doing well, no complaints, stable vital signs, no apparent adverse anesthesia problems. No complications reported per nursing. MIKE GUTIERREZ CRNA Jan 18, 2018 13:35
--- NOTE | 2018-01-18 13:38 | Physical Therapy Daily Note ---
PT Daily Note-Current Subjective Patient is very sedated and unsafe to ambulate long distances at this time. Pain Numeric Pain Scale: 7 Location: Left Location Body Site: Knee Pain Description: Acute Comment: with meds Mental Status Patient Orientation: Normal For Age Attachments: Polar Pack, IV Transfers Functional [place] Measure 0=Not Assessed/NA 4=Minimal Assistance 1=Total Assistance 5=Supervision or Setup 2=Maximal Assistance 6=Modified [place] 3=Moderate Assistance 7=Complete IndependenceIRFPAI Quality Coding Scale 6 Independent with activity with or without an assistive device 5 Patient requires set up or clean up by helper. Patient completes activity by themselves 4 Supervision or touching assist (CGA). [place] provide cues , steadying assist 3 The helper provides less than half the effort to complete the activity 2 The helper provides more than half the effort to complete the activity 1 Dependent. The helper does all the effort to complete an activity 7 Patient refused to complete or attempt activity 9 The patient did not perform the activity before the current illness or injury 88 Not attempted due to Medical conditions or safety concerns Transfers (B, C, W/C) (FIM): 4 Scootin Supine to/from Sit: 4 Sit to/from Stand: 4 Bed to/from Chair: 4 CGA for safety Weight Bearing Right Lower Extremity: Right Weight Bearing/Tolerated Left Lower Extremity: Left Weight Bearing/Tolerated Gait Training Gait (FIM): 1 Distance (FIM): 1=up to 49 ft Distance: 25' Gait Level of Assist: 5 Gait Assistive Device: FWW very slow, step to gait sequence Exercises Supine Ex: Heel Slides Supine Reps: 15 Seated Therapy Exercises: Ankle pumps, Long arc quads Seated Reps: 15 Assessment CPM and polar pack in place after treatment. Patient has received pain medication and benadryl due to itching. She is very sedated and unable to actively participate fully with therapy. Patient is in bed with needs met and family present. PT Short Term Goals Short Term Goals Time Frame: Jan 24, 2018 Transfers (B,C,W/C) (FIM): 5 Gait (FIM): 2 Gait Distance Comment: 50' Gait Level of Assist: 5 Gait Assistive Device: FWW PT Plan Treatment/Plan Treatment Plan: Continue Plan of Care Treatment Plan: Bed Mobility, Education, Functional Activity Maty, Functional Strength, Gait, Safety, Therapeutic Exercise, Transfers Treatment Duration: Jan 24, 2018 Frequency: At least 5 of 7 days/Wk (IRF) Estimated Hrs Per Day: 1.5 hours per day Patient and/or Family Agrees t: Yes Time/GCodes Time In: 1300 Time Out: 1330 Total Billed Treatment Time: 30 Total Billed Treatment 1 visit EX 14 min GT 16 min SAWYER FRANZ PT Jan 18, 2018 13:38
[2018-01-18] MEDS: VITAMIN D3 5,000 UNITS (CHOLECALCIFEROL ) CAPSULE PO SCH (13:53)
[2018-01-18] MEDS: CYANOCOBALAMIN 1,000 MCG (VITAMIN B-12) TABLET PO SCH (13:53)
--- NOTE | 2018-01-18 14:46 | Occupational Therapy Eval ---
OT Evaluation-General/PLF Medical Diagnosis Admission Date Jan 17, 2018 at 06:00 Medical Diagnosis: left TKA Onset Date: Jan 17, 2018 Therapy Diagnosis Therapy Diagnosis: decr self care, decr funct mobility, decr act tolerance, weakness Height/Weight Height (Feet): 5 Height (Inches): 0.00 Weight (Pounds): 207 Weight (Ounces): 5.0 Precautions Precautions/Isolations: Fall Prevention, Standard Precautions Safety Interventions: None Weight Bear Status Weight Bearing Restriction: Weight Bearing/Tolerated Referral Physician: Hood Maria Referral Reason: Evaluation/Treatment Medical History Pertinent Medical History: HTN, Hypothroidism Additional Medical History Sleep apnea, with O2 at night. B12 deficiency. Bilat cataract surgery, detached retina. Foot surgery. Uterus cancer. Depression. Anemia Current History elective total knee Reviewed History: Yes Social History Home: Single Level Current Living Status: Alone Entry Into Home: Stairs With Railing Steps Into Home: 5 ADL-Prior Level of Function ADL PLOF Comments Pt reported that she has been bal el to manage all of her basic self care needs and manage her home. 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 DME/Equipment: Bath Chair, Grab Bars, Tub/Shower OT Current Status Subjective Pt seen in room, up in bed, agreeable to OT. pain rated 6/10 in knee Appearance Drowsy, cooperative Mental Status/Objective Attachments: IV, Oxygen Current Glasses/Contacts: Yes Hand Dominance: Right Upper Extremity ROM grossly WFL bilat Upper Extremity Sensation no problems per patient report Upper Extremity Strength grossly 4/5 bilat ADL-Treatment ADL-Current Pt walked 190 feet, SBA, FWW with PT this am and toileted without help. CPM taken off at pt request as she could not get comfortable and said it was pinching Functional [place] Measure 0=Not Assessed/NA 4=Minimal Assistance 1=Total Assistance 5=Supervision or Setup 2=Maximal Assistance 6=Modified [place] 3=Moderate Assistance 7=Complete IndependenceIRFPAI Quality Coding Scale 6 Independent with activity with or without an assistive device 5 Patient requires set up or clean up by helper. Patient completes activity by themselves 4 Supervision or touching assist (CGA). [place] provide cues , steadying assist 3 The helper provides less than half the effort to complete the activity 2 The helper provides more than half the effort to complete the activity 1 Dependent. The helper does all the effort to complete an activity 7 Patient refused to complete or attempt activity 9 The patient did not perform the activity before the current illness or injury 88 Not attempted due to Medical conditions or safety concerns Education OT Patient Education: Purpose of tx/functional activities, Rehab process Teaching Recipient: Patient Teaching Methods: Discussion Response to Teaching: Verbalize Understanding OT Counselor At [employer] Goals Alf Goals Time Frame: Jan 25, 2018 Eating (FIM): 6 Grooming(FIM): 6 Bathing(FIM): 6 Upper Body Dressing(FIM): 6 Lower Body Dressing(FIM): 6 Toileting(FIM): 6 Toilet/Commode Transfer(FIM): 6 Shower Transfer(FIM): 6 Additional Goals: 1-Demonstrate ADL Tasks, 2-Verbalize Understanding, 3- ImproveStrength/Maty 1=Demonstrate adherence to instructed precautions during ADL tasks. 2=Patient will verbalize/demonstrate understanding of assistive devices/ modifications for ADL. 3=Patient will improve strength/tolerance for activity to enable patient to perform ADL's. OT Education/Plan Problem List/Assessment Assessment: Decreased Activ Tolerance, Decreased UE Strength, Dependent Transfers, Impaired Self-Care Skills Pt would benefit from skilled OT to increase her independence with basic self care to allow her to safely return home Discharge Recommendations Plan/Recommendations: Continue POC Treatment Plan/Plan of Care Treatment,Training & Education: Yes Patient would benefit from OT for education, treatment and training to promote independence in ADL's, mobility, safety and/or upper extremity function for ADL' s. Plan of Care: ADL Retraining, Functional Mobility, UE Funct Exercise/Act, UE Neuromus Re-Ed/Coord Treatment Duration: Jan 25, 2018 Frequency: 5 times per week Estimated Hrs Per Day: .5 hour per day Agreement: Yes Rehab Potential: Fair Time/GCodes Start Time: 14:25 Stop Time: 14:37 Total Time Billed (hr/min): 12 Billed Treatment Time visit, 12 minutes evaluation moderate intensity JERICHO MCKENNA OT Jan 18, 2018 14:46
[2018-01-18 16:44] VITALS: BP 162/71
[2018-01-18 20:19] VITALS: BP_SYST 124; BP_SYST 157; BP_DIAS 60; BP_DIAS 71
[2018-01-19 00:06] VITALS: BP 147/66
[2018-01-19] MEDS: NS IV 1000 ML 1,000 ML IV SCH (02:06)
[2018-01-19] MEDS: oxyCODONE/APAP 5/325MG (PERCOCET 5) TABLET PO PRN ×3 (02:09→09:33)
[2018-01-19 04:14] VITALS: BP 141/63
[2018-01-19 06:13] LABS: HEMOGLOBIN 8.3 G/DL (11.5-16.0)
[2018-01-19 06:35] LABS: ALBUMIN 3.1 GM/DL (3.2-4.5); BILIRUBIN,TOTAL 0.5 MG/DL (0.1-1.0); CALCIUM 8.8 MG/DL (8.5-10.1); CREATININE SERUM 0.9 MG/DL (0.60-1.30); POTASSIUM 3.4 MMOL/L (3.6-5.0); TOTAL PROTEIN 5.5 GM/DL (6.4-8.2)
[2018-01-19] MEDS: VITAMIN D3 5,000 UNITS (CHOLECALCIFEROL ) CAPSULE PO SCH (06:57)
[2018-01-19] MEDS: CYANOCOBALAMIN 1,000 MCG (VITAMIN B-12) TABLET PO SCH (06:57)
[2018-01-19] MEDS: MULTIVIT W/MINERALS TAB (THERAGRAN M) PO SCH (06:57)
[2018-01-19] MEDS: LEVOTHYROXINE 112 MCG (LEVOTHROID) TAB PO SCH (06:57)
[2018-01-19] MEDS: ENOXAPARIN 30 MG/0.3 ML (LOVENOX) SYR SC SCH (06:59)
[2018-01-19] MEDS ORDERED: morphine INJ 4 MG/ML 1 ML (VIAL/SYRINGE) IVP PRN (07:00)
--- NOTE | 2018-01-19 07:01 | Progress Note-Standard ---
Standard Progress Note Progress Notes/Assess & Plan Date Seen by Provider: Jan 19, 2018 Time Seen by Provider: 06:59 Progress/Assessment & Plan post op check no complaints. denies paresthesia radiographs--HW well positioned without fracture LLE--intact DF and PF of toes and ankle.2 plus DP pulse with brisk cap refill. sensation intact throughout s/p LTKA mobilize as able Final Diagnosis NO complaints was somnolent yesterday afternoon, but slept well and feels much better today Vital Signs Date Time Temp Pulse Resp B/P (MAP) Pulse Ox O2 Delivery O2 Flow Rate FiO2 01/19/18 04:14 98.0 86 17 141/63 (89) 95 NIV CPAP 01/19/18 00:06 98.1 85 17 147/66 (93) 96 NIV CPAP 01/18/18 21:00 NIV CPAP 2.00 01/18/18 21:00 20 01/18/18 20:19 99.1 96 16 157/71 (99) 92 NIV CPAP 01/18/18 19:30 97.8 01/18/18 18:54 97.8 01/18/18 16:44 97.8 92 20 162/71 (101) 93 Room Air 01/18/18 12:00 97.4 88 18 145/63 (90) 93 Room Air 01/18/18 10:02 98.4 01/18/18 08:00 Nasal Cannula 2.00 01/18/18 08:00 98.4 76 18 150/66 (94) 95 Nasal Cannula 2.00 I & O 01/19/18 07:00 Intake Total 3460 ml Output Total 2050 ml Balance 1410 ml Laboratory Tests Test 01/19/18 05:30 Range/Units Hemoglobin 8.3 L 11.5-16.0 G/DL Hematocrit 25 L 35-52 % Sodium Level 140 135-145 MMOL/L Potassium Level 3.4 L 3.6-5.0 MMOL/L Chloride Level 109 H 98-107 MMOL/L Carbon Dioxide Level 23 21-32 MMOL/L Anion Gap 8 5-14 MMOL/L Blood Urea Nitrogen 15 7-18 MG/DL Creatinine 0.90 0.60-1.30 MG/DL Estimat Glomerular Filtration Rate 60 BUN/Creatinine Ratio 17 Glucose Level 99 70-105 MG/DL Calcium Level 8.8 8.5-10.1 MG/DL Corrected Calcium 9.5 8.5-10.1 MG/DL Total Bilirubin 0.5 0.1-1.0 MG/DL Aspartate Amino Transf (AST/SGOT) 39 H 5-34 U/L Alanine Aminotransferase (ALT/SGPT) 78 H 0-55 U/L Alkaline Phosphatase 56 40-136 U/L Total Protein 5.5 L 6.4-8.2 GM/DL Albumin 3.1 L 3.2-4.5 GM/DL LLE--incision clean and dry. No calf tenderness. Neg HOmans s/p lTKA progressing well continue PT and OT DC to IRF MAHENDRA LEONARDO MD Jan 19, 2018 07:01
[2018-01-19 08:00] VITALS: BP 159/67
[2018-01-19] MEDS: HYDROCHLOROTHIAZIDE 12.5 MG (HCTZ) CAP PO SCH (08:34)
[2018-01-19] MEDS: OXYBUTYNIN (DITROPAN) 5 MG TAB PO SCH (08:34)
[2018-01-19] MEDS: LOSARTAN 100 MG (COZAAR) TABLET PO SCH (08:34)
[2018-01-19] MEDS: ASPIRIN E.C. 81 MG (ECOTRIN) TAB PO SCH (08:34)
[2018-01-19] MEDS: SENNA W/DOCUSATE (SENOKOT S) TABLET PO SCH (08:34)
[2018-01-19] MEDS: DICLOFENAC 1% GEL 100 GM (VOLTAREN) TUBE TOP SCH (08:35)
--- NOTE | 2018-01-20 00:57 | DISCHARGE SUMMARY ---
DATE OF SERVICE: DIAGNOSES: 1. Left knee primary osteoarthritis. 2. Sleep apnea. 3. Hypothyroidism. 4. B12 deficiency. 5. Hypertension. 6. History of pneumonia. PROCEDURE: Left total knee arthroplasty. SUMMARY: The patient is an 82-year-old female who underwent a left total knee arthroplasty on the day of admission. Postoperatively, she was progressing well. Her wound was clean and dry. She had no calf tenderness. Negative Homans sign. She was progressing well with physical therapy. CONDITION: Good. DISCHARGE DISPOSITION: Transfer to the inpatient rehabilitation unit for continued physical and occupational therapy. Job ID: [id number] DocumentID: [id number] Dictated Date: 01/19/2018 06:58:07 Line Maintenance Supervisor Date: 01/20/2018 00:56:57 Dictated By: MAHENDRA LEONARDO MD
[2018-01-26] MEDS ORDERED: ACET325T49 PO (10:15)
[2018-01-26] MEDS ORDERED: ASPI-983 PO (10:15)
== END 2018-01-19 09:30 | DRG 470 ==
LOC: 4TH 06:00 → SURG 06:01 → 4TH 10:18
PROVIDERS: ADMIT Orthopaedic Surgery; ATTEND Orthopaedic Surgery
PROC: 0SRD0J9 Replacement of Left Knee Joint with Synthetic Substitute, Cemented, Open Approach (ICD-10-PCS; principal; 2018-01-17 07:30)
DX: M17.12 Unilateral primary osteoarthritis, left knee (principal); I10 Essential (primary) hypertension; E03.9 Hypothyroidism, unspecified; G47.30 Sleep apnea, unspecified; E53.8 Deficiency of other specified B group vitamins; Z87.01 Personal history of pneumonia (recurrent)
CPT/HCPCS: 36415; 73560; 80053; 85014; 85018; 86850; 86900; 86901; 94664; 94760

== ENCOUNTER 2018-03-09 10:30 | Outpatient (RCR) | payer MEDICARE ==
[~2018-03-09 10:30] MED LIST changes: +ACET325T49 PO; +ASPI-983 PO; +FURO-125 PO; +OXYC1TAB87 PO
== END 2018-03-11 | disposition home or self-care (01) ==
PROVIDERS: ATTEND Orthopaedic Surgery
DX: Z47.1 Aftercare following joint replacement surgery (principal); Z96.652 Presence of left artificial knee joint

== ENCOUNTER → 2018-04-23 | Outpatient (CLI) | payer MEDICARE ==
--- NOTE | 2018-04-23 13:31 | Diagnostic Imaging Report ---
PROCEDURE: MRI lumbar spine. TECHNIQUE: Multiplanar, multisequence MRI of the lumbar spine was performed without contrast. INDICATION: Left leg swelling since knee replacement surgery. COMPARISON: No prior MRI of the lumbar spine studies are available for comparison. FINDINGS: Curvature and alignment of the lumbar spine is normal. The vertebral body heights are maintained. There is no evidence of an acute compression fracture. No geographic marrow lesion is seen. There is generalized degenerative disc and facet disease. There is variable disc space narrowing and desiccation noted. The conus appears unremarkable at the L1 level. T12-L1: Central canal and neural foramina are widely patent. L1-2: Central canal and neural foramina are widely patent. L2-3: Ligamentous thickening and facet changes do create some trefoil configuration of the thecal sac. AP dimensions of the canal remain within normal limits. The neural foramina are widely patent. L3-4: Degenerative facet changes and ligamentous thickening are noted. Broad-based disc/osteophyte complex indents the ventral thecal sac. No significant central canal narrowing is seen. There is bilateral lateral recess narrowing. There also appears to be mild to moderate bilateral neural foraminal narrowing. L4-5: Marked hypertrophic facet changes and ligamentous thickening as well as broad-based disc/osteophyte complex results in moderate trefoil stenosis of the canal. There is narrowing of bilateral lateral recesses as well as moderate bilateral neural foraminal narrowing. L5-S1: Degenerative facet changes are noted. Central canal is widely patent. There is mild bilateral neural foramina narrowing. The paraspinous tissues are unremarkable. IMPRESSION: Lumbar spondylosis and facet arthropathy with multilevel central canal, lateral recess and neural foraminal narrowing described level by level above. Dictated by: Dictated on workstation # [id number]
== END ==
LOC: RAD 11:02
PROVIDERS: ATTEND Orthopaedic Surgery
DX: M47.27 Other spondylosis with radiculopathy, lumbosacral region (principal); M99.73 Connective tissue and disc stenosis of intervertebral foramina of lumbar region; M46.86 Other specified inflammatory spondylopathies, lumbar region; M48.061 Spinal stenosis, lumbar region without neurogenic claudication; M51.16 Intervertebral disc disorders with radiculopathy, lumbar region; Z96.652 Presence of left artificial knee joint
CPT/HCPCS: 72148

== ENCOUNTER 2018-06-08 13:35 | Outpatient (RCR) | payer MEDICARE | END 2018-06-11 | disposition home or self-care (01) | PROVIDERS: ATTEND Orthopaedic Surgery | DX: Z47.1 Aftercare following joint replacement surgery (principal); Z96.652 Presence of left artificial knee joint ==

== ENCOUNTER 2018-07-11 10:15 | Outpatient (RCR) | payer MEDICARE | END 2018-07-11 10:58 | disposition home or self-care (01) | PROVIDERS: ATTEND Orthopaedic Surgery | DX: Z47.1 Aftercare following joint replacement surgery (principal); Z96.652 Presence of left artificial knee joint ==

== ENCOUNTER → 2018-09-11 | Outpatient (CLI) | payer MEDICARE ==
--- NOTE | 2018-09-11 16:42 | Diagnostic Imaging Report ---
INDICATION: Routine screening. COMPARISON: 07/25/2017 and 05/17/2016. TECHNIQUE: 2D and 3D bilateral screening mammography was performed with CAD. FINDINGS: Scattered fibroglandular densities are identified bilaterally. Benign calcifications are noted bilaterally. No mass or malignant appearing microcalcifications are seen. The axillae are unremarkable. IMPRESSION: No mammographic features suspicious for malignancy are identified. ACR BI-RADS Category 2: Benign findings. Result letter will be mailed to the patient. Note: At least 10% of breast cancer is not imaged by mammography. Dictated by: Dictated on workstation # [id number]
== END ==
LOC: RAD 11:32
PROVIDERS: ATTEND Family Medicine
DX: Z12.31 Encounter for screening mammogram for malignant neoplasm of breast (principal)
CPT/HCPCS: 77067

== ENCOUNTER 2018-11-08 14:38 | Emergency (ER) | payer MEDICARE ==
[~2018-11-08] VITALS: Ht 152.4 cm; Wt 91.6 kg
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
[2018-11-08 15:20] VITALS: BP 147/54
== END 2018-11-08 15:20 | disposition home or self-care (01) ==
LOC: EDUNIT# 14:38 → ER 14:39
DX: M25.562 Pain in left knee (principal); G89.29 Other chronic pain; G47.30 Sleep apnea, unspecified; K58.9 Irritable bowel syndrome, unspecified; F32.9 Major depressive disorder, single episode, unspecified; D64.9 Anemia, unspecified; R40.2142 Coma scale, eyes open, spontaneous, at arrival to emergency department; R40.2252 Coma scale, best verbal response, oriented, at arrival to emergency department; R40.2362 Coma scale, best motor response, obeys commands, at arrival to emergency department; Z85.42 Personal history of malignant neoplasm of other parts of uterus; Z99.81 Dependence on supplemental oxygen; Z82.49 Family history of ischemic heart disease and other diseases of the circulatory system; Z80.49 Family history of malignant neoplasm of other genital organs; Z80.0 Family history of malignant neoplasm of digestive organs; Z80.52 Family history of malignant neoplasm of bladder; Z88.5 Allergy status to narcotic agent; Z88.8 Allergy status to other drugs, medicaments and biological substances; Z79.82 Long term (current) use of aspirin; Z98.890 Other specified postprocedural states; Z87.01 Personal history of pneumonia (recurrent); Z96.642 Presence of left artificial hip joint; V03.90XA Pedestrian on foot injured in collision with car, pick-up truck or van, unspecified whether traffic or nontraffic accident, initial encounter
CPT/HCPCS: 73562

== ENCOUNTER → 2019-12-31 | Outpatient (CLI) | payer MEDICARE ==
[~2019-12-31] MED LIST changes: +OXYB5TAB13 PO
--- NOTE | 2019-12-31 16:21 | Diagnostic Imaging Report ---
INDICATION: Routine screening. COMPARISON is made with prior mammograms from 09/11/2018 and 07/25/2017. 2-D and 3-D bilateral screening mammography was performed with CAD. Scattered fibroglandular densities are identified bilaterally. The parenchymal pattern is stable. No mass or malignant appearing microcalcifications are seen. Axillae are unremarkable. IMPRESSION: BI-RADS Category 1. No mammographic features suspicious for malignancy are identified. ACR BI-RADS Category 1: Negative. Result letter will be mailed to the patient. Note: At least 10% of breast cancer is not imaged by mammography. Dictated by: Dictated on workstation # [id number]
== END ==
LOC: RAD 14:59
PROVIDERS: ATTEND Family Medicine
DX: Z12.31 Encounter for screening mammogram for malignant neoplasm of breast (principal)
CPT/HCPCS: 77063; 77067

== ENCOUNTER 2020-09-24 13:01 | Outpatient (RCR) | payer MEDICARE ==
[~2020-09-24 13:01] MED LIST changes: +ASPI-1238 PO; -ASPI-983 PO
== END 2020-09-28 | disposition home or self-care (01) ==
PROVIDERS: ATTEND Nurse Practitioner Family
DX: R32 Unspecified urinary incontinence (principal); Z85.42 Personal history of malignant neoplasm of other parts of uterus; Z90.710 Acquired absence of both cervix and uterus; Z90.49 Acquired absence of other specified parts of digestive tract; Z96.659 Presence of unspecified artificial knee joint

== ENCOUNTER 2020-10-09 14:15 | Outpatient (RCR) | payer MEDICARE | END 2020-11-06 15:18 | disposition home or self-care (01) | PROVIDERS: ATTEND Nurse Practitioner Family | DX: R32 Unspecified urinary incontinence (principal); Z85.42 Personal history of malignant neoplasm of other parts of uterus; Z90.710 Acquired absence of both cervix and uterus; Z90.49 Acquired absence of other specified parts of digestive tract; Z96.659 Presence of unspecified artificial knee joint ==

== ENCOUNTER → 2021-01-05 | Outpatient (CLI) | payer MEDICARE ==
--- NOTE | 2021-01-05 15:28 | Diagnostic Imaging Report ---
INDICATION: Routine screening. COMPARISON: 12/31/2019 and 09/11/2018. TECHNIQUE: 2D and 3D bilateral screening mammography was performed with CAD. FINDINGS: Both breasts are heterogeneously dense, limiting the sensitivity of mammography. Occasional benign calcifications are noted. No mass or malignant-appearing microcalcifications are seen. The axillae are unremarkable. IMPRESSION: No mammographic features suspicious for malignancy are identified. ACR BI-RADS Category 2: Benign findings. Result letter will be mailed to the patient. Note: At least 10% of breast cancer is not imaged by mammography. Dictated by: Dictated on workstation # [id number]
== END ==
LOC: RAD 11:30
PROVIDERS: ATTEND Family Medicine
DX: Z12.31 Encounter for screening mammogram for malignant neoplasm of breast (principal)
CPT/HCPCS: 77063; 77067

== ENCOUNTER → 2021-08-13 | Outpatient (CLI) | payer MEDICARE ==
--- NOTE | 2021-08-13 17:00 | Diagnostic Imaging Report ---
INDICATION: RIGHT ARM PAIN TECHNIQUE: Color and grayscale sonographic images with duplex Doppler evaluation of the upper extremity venous system. CORRELATION STUDY: None FINDINGS: There is no intraluminal filling defect within the visualized portion of the internal jugular, subclavian, axillary, brachial and/or basilic veins to suggest thrombus formation. Where applicable, these vessels demonstrate normal response to compression and augmentation. There is somewhat nonspecific area of heterogeneous echotexture at the area of described palpable lump. There is suggestion of fluid. This area measures approximately 4 x 2.8 x 1.9 cm. IMPRESSION: 1. Negative for venous thrombus of the upper extremity. 2. Complex region subcutaneous tissues right upper extremity in the area of palpable lump. Nonspecific, could be reflective of underlying cellulitis. Definitive drainable abscess collection is not suggested at this time. Findings were relayed by the centerless grinder tender at time of imaging. Dictated by: Dictated on workstation # [id number]
== END ==
LOC: RAD 15:54
PROVIDERS: ATTEND Nurse Practitioner Family
DX: L03.113 Cellulitis of right upper limb (principal)

== ENCOUNTER 2022-01-08 15:42 | Emergency (ER) | payer MEDICARE ==
[~2022-01-08] VITALS: Ht 150 cm; Wt 81.6 kg
--- NOTE | 2022-01-08 16:13 | ED Cough/URI ---
General Chief Complaint: COVID19 Suspect/Confirmed Stated Complaint: SORE THROAT - COUGH - WEAKNESS - CONGESTION Nursing Triage Note: PT AMB TO ED BY POV WITH C/O COUGH, WEAKNESS, AND SCRATCHY THROAT X 1 WK. PT REPORTS SHE WAS TRAVELING IN [place] AND THOUGHT HER SX WERE RELATED TO ALLERGIES. REPORTS EVERYONE IN THE GROUP SHE WAS TRAVELING WITH HAS TESTED POSITIVE FOR COVID. DENIES N/V/D, FEVER, SOB, CP. Source: patient Exam Limitations: no limitations (JEANETTE DON) History of Present Illness Date Seen by Provider: Jan 08, 2022 Time Seen by Provider: 16:10 Initial Comments This is an 86-year-old female that presents to the emergency room for evaluation of generalized malaise, cough, sore throat for 1 week. She states that her and ibuprofens recently traveled to [place] and she believes she was having allergies due to sagebrush but her symptoms persisted when she returned. She states that everyone in her group tested positive for COVID. She has not had any significant shortness of breath, vomiting, diarrhea or other symptoms. Timing/Duration: week Severity/Quality: mild Prior Episodes/Possible Cause: no prior episodes (JEANETTE DON) Allergies and Home Medications Allergies Coded Allergies: hydrocodone (Unverified Allergy, Intermediate, HALLUCINATIONS, 01/09/18) meperidine (Unverified Allergy, Intermediate, HALLUCINATIONS, 01/09/18) Patient Home Medication List Home Medication List Reviewed: Yes (JEANETTE DON) Acetaminophen (Acetaminophen) 325 Mg Tablet, 650 MG PO Q6H PRN for PAIN-MILD OR TEMPATURE Prescribed by: VIKI PADILLA on 01/26/18 1015 Aspirin (Aspirin EC) 81 Mg Tablet.dr, 81 MG PO DAILY Prescribed by: VIKI PADILLA on 01/26/18 1015 Cholecalciferol (Vitamin D3) (Vitamin D3) 5,000 Unit Capsule, 5,000 UNIT PO DAILY, (Reported) Entered as Reported by: JENNIE STRICKLAND on 01/09/18 1325 Cyanocobalamin (Cyanocobalamin Injection) 1,000 Mcg/Ml Inj, 1,000 MCG IM EVERY 2 WEEKS, (Reported) Entered as Reported by: JENNIE STRICKLAND on 01/09/18 1325 Cyanocobalamin (Vitamin B-12) (Vitamin B-12) 1,000 Mcg Capsule, 1,000 MCG PO DAILY, (Reported) Entered as Reported by: JENNIE STRICKLAND on 01/09/18 1325 Levothyroxine Sodium (Levothyroxine Sodium) 112 Mcg Tablet, 112 MCG PO DAILY, (Reported) Entered as Reported by: JENNIE STRICKLAND on 01/09/18 1325 Losartan/Hydrochlorothiazide (Losartan-Hctz 100-12.5 mg Tab) 1 Each Tablet, 1 EACH PO DAILY, (Reported) Entered as Reported by: JENNIE STRICKLAND on 01/09/18 1325 Oxybutynin Chloride (Oxybutynin Chloride) 5 Mg Tablet, 5 MG PO BID, (Reported) Entered as Reported by: JENNIE STRICKLAND on 01/09/18 1325 Review of Systems Review of Systems Constitutional: malaise EENTM: see HPI Respiratory: cough Cardiovascular: no symptoms reported Gastrointestinal: no symptoms reported Genitourinary: no symptoms reported Musculoskeletal: no symptoms reported Skin: no symptoms reported Hematologic/Lymphatic: No Symptoms Reported (JEANETTE DON) Past Naapywm-Shgwxw-Yrqyug Hx Patient Social History Tobacco Use?: No (JEANETTE DON) Immunizations Up To Date Tetanus Booster (TDap): Unknown PED Vaccines UTD: No (JEANETTE DON) Seasonal Allergies Seasonal Allergies: No (JEANETTE DON) Past Medical History Surgeries: Yes (FOOT SURGERY, EYE SURGERY (DETATCED RETINA), CATARACTS) Respiratory: Yes (Bronchitis) Pneumonia, Sleep Apnea Currently Using CPAP: Yes (with 2L 02 AT NIGHT) Cardiac: Yes Hypertension Neurological: No Reproductive Disorders: Yes (CANCER OF UTERUS) Sexually Transmitted Disease: No HIV/AIDS: No Genitourinary: No Gastrointestinal: Yes Irritable Bowel Musculoskeletal: Yes Arthritis Endocrine: Yes HEENT: Yes (GLASSES; HX OF DETATCHED RETINA) Cancer: Yes Uterine What Type of Treatment Did You: Surgical Intervention Psychosocial: No Depression Integumentary: No Blood Disorders: Yes (HX ANEMIA) Adverse Reaction/Blood Tranf: No (N/A) (JEANETTE DON) Family Medical History Asthma in father 19 FATHER FH: bladder cancer G8 SISTER FH: colon cancer G8 BROTHER FH: emphysema 19 FATHER FH: heart attack 19 FATHER FH: stroke 19 MOTHER ( frome stroke) FH: uterine cancer G8 SISTER Physical Exam Vital Signs - First Documented 01/08/22 15:46 Temp 36.6 Pulse 64 Resp 14 B/P (MAP) 155/57 (89) Pulse Ox 96 O2 Delivery Room Air (TRINITY MAXWELL MD) Capillary Refill : Less Than 3 Seconds (JEANETTE DON) Height: 5'0.00" Weight: 202lbs. 6.4oz. 91.265974gk; 36.00 BMI Method:Stated General Appearance: WD/WN, no apparent distress Eyes: Bilateral Eye Normal Inspection, Bilateral Eye PERRL, Bilateral Eye EOMI HEENT: PERRL/EOMI, TMs normal, pharynx normal Neck: non-tender, supple Respiratory: chest non-tender, lungs clear, normal breath sounds, no respiratory distress Cardiovascular: regular rate, rhythm, no edema Extremities: normal range of motion, non-tender Neurologic/Psychiatric: printing roller handler II-XII nml as tested, alert, oriented x 3 Skin: normal color (JEANETTE DON) Progress/Results/Core Measures Suspected Sepsis SIRS Temperature: Pulse: 64 Respiratory Rate: 14 Blood Pressure 155 /57 Mean: 89 (JEANETTE DON) Results/Orders Lab Results Laboratory Tests Test 01/08/22 15:52 Range/Units Influenza Type A (RT-PCR) Not Detected Not Detecte Influenza Type B (RT-PCR) Not Detected Not Detecte SARS-CoV-2 RNA (RT-PCR) Detected H Not Detecte (TRINITY MAXWELL MD) My Orders Orders - TRINITY MAXWELL MD Covid 19 Inhouse Test (01/08/22 15:46) Influenza A And B By Pcr (01/08/22 15:46) (TRINITY MAXWELL MD) Vital Signs/I&O 01/08/22 01/08/22 01/08/22 15:46 15:46 16:48 Temp 36.6 Pulse 64 62 Resp 14 14 B/P (MAP) 155/57 (89) 156/62 Pulse Ox 96 97 O2 Delivery Room Air Room Air Room Air (TRINITY MAXWELL MD) Vital Signs/I&O Capillary Refill : Less Than 3 Seconds (JEANETTE DON) Blood Pressure Mean: 89 Departure Impression Primary Impression: COVID-19 Disposition: 01 HOME, SELF-CARE Condition: Stable Departure-Patient Inst. Decision time for Depature: 16:12 (JEANETTE DON) Referrals: LUZ MARINA SOUTH MD (PCP/Family) Primary Care Physician Patient Instructions: COVID-19 (DC), COVID-19 Home Care/Discharge Add. Discharge Instructions: You can use over the counter cough/cold medications for your symptoms as we discussed. Please return with any severe changes or worsening of symptoms as we discussed. All discharge instructions reviewed with patient and/or family. Voiced understanding. ATTENDING PHYSICIAN NOTE: I was physically present as attending physician in the emergency department during the care of this patient. I ordered the viral swabs based on chief complaint. Emmanuelbryan Don assumed care from that time. I was not otherwise dir ectly involved in the decision making or delivery of care for this patient. (TRINITY MAXWELL MD) JEANETTE DON Jan 08, 2022 16:13 TRINITY MAXWELL MD Jan 09, 2022 19:52
[2022-01-08 16:48] VITALS: BP 156/62
== END 2022-01-08 16:48 | disposition home or self-care (01) ==
LOC: EDUNIT# 15:42 → ER 15:43
DX: U07.1 COVID-19 (principal); G47.30 Sleep apnea, unspecified; Z99.89 Dependence on other enabling machines and devices
CPT/HCPCS: 87636; 99283

== ENCOUNTER 2022-02-07 15:01 | Outpatient (RCR) | payer MEDICARE | END 2022-02-09 | disposition home or self-care (01) | PROVIDERS: ATTEND Nurse Practitioner Family | DX: R32 Unspecified urinary incontinence (principal); I10 Essential (primary) hypertension ==

== ENCOUNTER → 2022-02-08 | Outpatient (CLI) | payer MEDICARE ==
--- NOTE | 2022-02-08 15:08 | Diagnostic Imaging Report ---
Indication: Routine screening. Comparison is made with prior mammogram from 01/05/2021 and 12/31/2019. 2-D and 3-D bilateral screening mammography was performed with CAD. CAD is utilized. The current study was also evaluated with a Computer Aided Detection (CAD) system. Both breasts are heterogeneously dense, limiting the sensitivity of mammography. Occasional benign calcifications are noted bilaterally. No mass or malignant-appearing microcalcifications are seen. Axillae are unremarkable. IMPRESSION: BI-RADS Category 2 No mammographic features suspicious for malignancy are identified. ACR BI-RADS Category 2: Benign findings. Result letter will be mailed to the patient. Note: At least 10% of breast cancer is not imaged by mammography. Dictated by: Dictated on workstation # [id number]
--- NOTE | 2022-02-08 17:34 | Diagnostic Imaging Report ---
INDICATION: Asymptomatic postmenopausal female. COMPARISON: None. FINDINGS: AP Spine L1-L4: [BMD (g/cm2): 1.656] [T-Score: 3.8] [Z-Score: 5.2] [BMD Previous: NA] [BMD % Change: NA] LT Hip Neck: [BMD (g/cm2): 1.001] [T-Score: -0.3] [Z-Score: 1.8] LT Hip Total: [BMD (g/cm2):1.122] [T-Score:0.9] [Z-Score: 2.8] [BMD Previous: NA] [BMD % Change: NA] RT Hip Neck: [BMD (g/cm2):0.937] [T-Score:-0.7] [Z-Score:1.3] RT Hip Total: [BMD (g/cm2):1.011] [T-score:0.0] [Z-Score:1.9] [BMD Previous:NA] [BMD % Change:NA] *Indicates significant change from prior examination based on 95% confidence level. World Health Organization criteria for BMD interpretation classify patients as Normal (T-score at or above -1.0), Osteopenic (T-score between -1.0 and -2.5) or Osteoporotic (T-score at or below -2.5). LIMITATIONS AND MODIFICATION: None. FRACTURE RISK (FRAX SCORE): The ten year probability of (%): Major Osteoporotic Fracture: [NA] Hip Fracture: [NA] IMPRESSION: 1. Normal bone mineral density. 2. Baseline examination. 3. See below National Osteoporosis Foundation guidelines on when to potentially initiate pharmacologic therapy. Based on the National Osteoporosis Foundation Guidelines, pharmacologic treatment should be initiated in any of the following, unless clinical conditions suggest otherwise: * Any patient with prior fragility fracture of the hip or vertebrae. A spine fracture indicates 5X risk for subsequent spine fracture and 2X risk for subsequent hip fracture. * Osteoporosis (T-score <-2.5). * Postmenopausal women and men age 50 and older with low bone mass/osteopenia (T-score between -1.0 and -2.5) by DXA and 10-year major osteoporotic fracture greater than 20% or a 10-year probability of hip fracture greater than 3%. These fracture risks are supplied above in the FRAX score, if applicable. * Clinician judgement and/or patient preferences may indicate treatment for people with 10-year fracture probabilities above or below these levels. Dictated by: Dictated on workstation # [id number]
== END ==
LOC: RAD 13:18
PROVIDERS: ATTEND Nurse Practitioner Family
DX: Z12.31 Encounter for screening mammogram for malignant neoplasm of breast (principal); Z78.0 Asymptomatic menopausal state
CPT/HCPCS: 77063; 77067; 77080

== ENCOUNTER → 2023-04-26 | Outpatient (CLI) | payer MEDICARE ==
[~2023-04-26] MED LIST changes: -OXYB5TAB13 PO; +OXYB5TAB14 PO
--- NOTE | 2023-04-26 14:24 | Diagnostic Imaging Report ---
3-D bilateral screening mammogram with CAD. The current study was also evaluated with a Computer Aided Detection (CAD) system. This study was compared to the prior exams of 02/08/2022, 01/05/2021 and 12/31/2019. At this time there are no current complaints. The current study was also evaluated with a Computer Aided Detection (CAD) system. FINDINGS: There are scattered fibroglandular densities in both breasts which could obscure a lesion. Overall, there does not appear to have been any significant change when compared to the prior exam. No primary or secondary sign of malignancy is noted. IMPRESSION: There is no radiographic evidence for malignancy. ACR BI-RADS Category 1: Negative. Result letter will be mailed to the patient. Note: At least 10% of breast cancer is not imaged by mammography. Dictated by: Dictated on workstation # [id number]
== END ==
LOC: RAD 11:28
PROVIDERS: ATTEND Family Medicine
DX: Z12.31 Encounter for screening mammogram for malignant neoplasm of breast (principal)
CPT/HCPCS: 77063; 77067

== ENCOUNTER 2023-05-10 08:19 | Outpatient (RCR) | payer MEDICARE | END 2023-05-11 | PROVIDERS: ATTEND Family Medicine | DX: M54.12 Radiculopathy, cervical region (principal); M79.605 Pain in left leg; M79.641 Pain in right hand; R20.0 Anesthesia of skin; R20.2 Paresthesia of skin; N39.46 Mixed incontinence ==